=== PATIENT | male | born 1950 | race Caucasian/White ===

== ENCOUNTER → 2016-04-11 | Day surgery (SDC) | payer OTHER, MEDICARE ==
[2016-04-08 11:02] LABS: % IMMATURE GRANULYOCYTES 0.5 % (0.0-1.1); ABSOLUTE IMMATURE GRANULOCYTES 0.03 10^3/uL (0.00-0.10); ADD DIFF? NO; ADD MORPH? NO; ADD SCAN? NO; ATYPICAL LYMPHOCYTE FLAG 10 (0-99); FRAGMENT RBC FLAG 0 (0-99); HEMATOCRIT 43.8 % (40.0-51.0); HEMOGLOBIN 15.2 g/dL (13.7-17.5); LEFT SHIFT FLG 10 (0-99); LIPEMIA HEMOLYSIS FLAG 90 (0-99); MEAN CELL HEMOGLOBIN CONCENTR. 34.7 g/dL (32.4-36.7); MEAN PLATELET VOLUME 9.4 fL (8.7-11.7); PLATELET CLUMPS FLAG 0 (0-99); PLATELET COUNT 283 10^3/uL (150-400); RED BLOOD CELL COUNT 4.61 10^6/uL (4.40-6.38); RED CELL DISTRIBUTION WIDTH 13.2 % (11.5-15.2)
[~2016-04-11] MED LIST: BACITRACIN 50,000 UNITS/10 ML SYR IRR ONE; BUPIVACAINE 0.25% 30 ML SDV ONE; BUPIVACAINE/EPI 0.25% 30 ML SDV ONE; DEXAMETHASONE 10 MG/ML VIAL ONE; DEXMEDETOMIDINE HCL 400 MCG in NS 100 ML IV ONE; LR 1,000 ML IV ONE; THROMBIN (RECOMBINANT) 5,000 UNIT VIAL TP ONE; ceFAZolin 2 GM in D5W 100 ML IV ONE; ceFAZolin 2 GM/DEXTROSE 100 ML IV ONE; fentaNYL 100 MCG/2 ML INJ IT ONE; morphINE PF 1 MG/2 ML AMP IT ONE
--- NOTE | 2016-04-11 15:58 | GOP ---
[f rep st] OPERATIVE REPORT DATE OF OPERATION: 04/11/2016 SURGEON: Familia Parisi MD PREOPERATIVE DIAGNOSIS: POSTOPERATIVE DIAGNOSIS: PROCEDURE PERFORMED: FINDINGS: DESCRIPTION OF PROCEDURE: The patient was supposed to undergo a lumbar decompression and fusion today, but had taken Suboxone l ast night, and the advice of the anesthesiologist and the patient's pain doctor was to hold off for a few days, so the surgery was canceled. We are trying to reschedule him for a few days away. /[id number]/MODL
== END | disposition home or self-care (01) ==
LOC: FSGY 11:16 → F3N 11:16 → UNDOADMIN 11:16 → EDSTATUS 12:45
PROVIDERS: ATTEND Neurological Surgery
DX: M51.36 Other intervertebral disc degeneration, lumbar region (principal); Z53.09 Procedure and treatment not carried out because of other contraindication; Z98.1 Arthrodesis status
CPT/HCPCS: J0690; J2274

== ENCOUNTER 2016-04-15 07:15 | Inpatient (IN) | payer OTHER, MEDICARE ==
[~2016-04-15 07:15] MED LIST changes: +CEFAZOLIN 2 GM/DEXTROSE/100 ML BAG IV ONE; +CHLORHEXIDINE GLUC HIBICLENS 118 ML BTL TP ONE; +DEXAMETHASONE 10 MG/ML VIAL IVP ONE; -DEXAMETHASONE 10 MG/ML VIAL ONE; -DEXMEDETOMIDINE HCL 400 MCG in NS 100 ML IV ONE; +LIDOCAINE 1% 5 ML SDV ID PRN; +LIDOCAINE 1% 5 ML SDV ONE; +PROPOFOL/EMULSION 500 MG/50 ML BOTTLE IV ONE; +REMIFENTANIL HCL 1 MG VIAL ONE; -ceFAZolin 2 GM in D5W 100 ML IV ONE; +fentaNYL 100 MCG/2 ML INJ ONE; +fentaNYL 250 MCG/5 ML INJ ONE; -morphINE PF 1 MG/2 ML AMP IT ONE; +morphINE PF 5 MG/10 ML INJ IT ONE
[2016-04-15] MEDS ORDERED: MIDAZOLAM 2 MG/2 ML VIAL ONE (07:18)
[2016-04-15] MEDS ORDERED: DEXMEDETOMIDINE HCL 200 MCG/2 ML VIAL IV ONE (08:02)
[2016-04-15] MEDS ORDERED: fentaNYL 250 MCG/5 ML INJ ONE ×2 (08:06→09:29)
[2016-04-15] MEDS ORDERED: PHENYLEPHRINE 10 MG/ML SDV ONE (08:26)
[2016-04-15] MEDS ORDERED: fentaNYL 100 MCG/2 ML INJ ONE ×2 (08:56→10:37)
[2016-04-15] MEDS ORDERED: morphINE PF 5 MG/10 ML INJ ONE (08:56)
[2016-04-15] MEDS ORDERED: MAGNESIUM HYDROXIDE 30 ML UDCUP PO PRN (12:04)
[2016-04-15] MEDS ORDERED: LACTULOSE 20 GM/30 ML UDCUP PO PRN (12:04)
[2016-04-15] MEDS ORDERED: BISACODYL 10 MG SUPP PR PRN (12:04)
[2016-04-15] MEDS ORDERED: diphenhydrAMINE 25 MG CAP PO PRN (12:04)
[2016-04-15] MEDS ORDERED: ONDANSETRON DISINTEGRATING 4 MG TAB PO PRN (12:04)
[2016-04-15] MEDS ORDERED: ACETAMINOPHEN 325 MG TAB PO PRN (12:04)
[2016-04-15] MEDS ORDERED: MAG HYDROX/AL HYDROX/SIMETH 30 ML UDCUP PO PRN (12:04)
[2016-04-15] MEDS ORDERED: ONDANSETRON 4 MG/2 ML VIAL IVP PRN (12:04)
[2016-04-15] MEDS ORDERED: NS W/ 20 KCl/L 1,000 ML IV SCH (12:15)
--- NOTE | 2016-04-15 12:19 | GOP ---
[f rep st] OPERATIVE REPORT DATE OF OPERATION: 04/15/2016 SURGEON: Familia Parisi MD CORNER BRACE BLOCK MACHINE OPERATOR: Brandon Kruse PA-C ANESTHESIA: General endotracheal. PREOPERATIVE DIAGNOSIS: 1. Severe adjacent level degeneration, disc space collapse, and neural foraminal impingement at L1-2, status post prior multilevel L2 to S1 decompression and stabilization at an outside institution. 2. Intractable pain. 3. Failed conservative care. 4. High-risk surgical candidate given age, comorbidities, including chronic pain, and complicated medications, and required surgical intervention. POSTOPERATIVE DIAGNOSIS: 1. Severe adjacent level degeneration, disc space collapse, and neural foraminal impingement at L1-2, status post prior multilevel L2 to S1 decompression and stabilization at an outside institution. 2. Intractable pain. 3. Failed conservative care. 4. High-risk surgical candidate given age, comorbidities, including chronic pain, and complicated medications, and required surgical intervention. PROCEDURE PERFORMED: 1. L2 through 4 exploration of spinal fusion with L1-2 left-sided far lateral transpedicular decompression and L1-2 posterior nonsegmental (pedicle screw) fixation and posterolateral fusion with local autograft and bone morphogenic protein. 2. L1-2 posterior/transforaminal lumbar interbody fusion with 2 structural PEEK interbody spacers with local autograft and bone morphogenic protein. 3. Use of intraoperative microscopy, fluoroscopy, and computer volumetric stereotactic navigation with intraoperative neurophysiologic testing. 4. Injection of intrathecal narcotic analgesics and subcutaneous and intramuscular local anesthesia postoperatively. FINDINGS: ESTIMATED BLOOD LOSS: 75 cc. INDICATIONS FOR PROCEDURE: The patient is a 65-year-old man with a complicated past medical and surgical history, involving multiple prior lumbosacral spinal procedures and decompressions and fusions. He has chronic pain and is on complicated medications including Suboxone, which had to be stopped several days prior to surgery due to the opioid receptor inhibiting effect. He has weaned off his Suboxone and presents now for surgical intervention after failing extensive conservative care. DESCRIPTION OF PROCEDURE: After informed consent was obtained, the patient was taken to the operating room, placed in the prone position on the Ambrose table. The thoracolumbar areas were prepped and draped in a sterile fashion. After fluoroscopic localization identified the correct level, the subcutaneous and intramuscular tissues were infiltrated with local anesthesia. A midline linear incision was then created over the L1-2 spinous processes. This was carried down to the fascial layer, which was incised using monopolar electrocautery and carried in a subperiosteal plane along the spinous processes and lamina bilaterally. Intraoperative fluoroscopy was again utilized to verify the correct levels. Following this, dissection was carried out over the facet joints and the microscope was then brought in. A left-sided, far-lateral transpedicular decompression was performed with complete unroofing of the facet joint and neural foramen at L1-2. The lateral recess was also extensively decompressed. Following this, the [employer] neuronavigational system was brought in, and using computer volumetric stereotactic navigation, pedicle screws were placed at L1 and L2 bilaterally. Each individual screw was tested neurophysiologically with monopolar electrostimulation and interpretation of potentials by the surgeon. The rods were then placed and secured under distraction, during which time a complete diskectomy was performed at the L1-2 level with preparation of the endplates and placement of 2 structural PEEK interbody spacers and local autograft and bone morphogenic protein for an L1-2 posterior/transforaminal lumbar interbody fusion. The screw and toma system was then placed in a slight amount of compression in order to facilitate bony union and to minimize the potential for posterior graft migration. Following this, after a discussion with the anesthesiologist, we injected 500 mcg of Duramorph along with 100 mcg of fentanyl intrathecally at a level below the operated level. The retractors were angled inferiorly in order to do this, and the L2-3 and L3-4 levels were inspected as best I could for a solid fusion, and these were noted to be well healed and solid. Following this, along with injection of intrathecal narcotics, the remaining lamina and facet joint were extensively decorticated on the right and a residual local autograft from the facetectomy along with bone morphogenic protein was placed out laterally for a posterolateral fusion at the L1-2 level. A drain was then placed. Then after re-verification of good position of the screws, rods, and interbody spacers using biplanar fluoroscopy, the wound was closed in a layered fashion using interrupted Vicryl sutures, followed by Steri-Strips on the skin, after re -infiltration of the subcutaneous and intramuscular tissues with local anesthesia. COMPLICATIONS: None. DISPOSITION: The patient was extubated and transferred to the recovery room in stable condition. /[id number]/MODL MTDD
[2016-04-15] MEDS ORDERED: LIDOCAINE 2% 5 ML SDV ONE (12:43)
[2016-04-15] MEDS ORDERED: DEXAMETHASONE 4 MG/ML VIAL ONE (12:43)
[2016-04-15] MEDS ORDERED: ONDANSETRON 4 MG/2 ML VIAL ONE (12:43)
[2016-04-15] MEDS ORDERED: SUGAMMADEX SODIUM 200 MG/2 ML VIAL IVP ONE (13:11)
--- NOTE | 2016-04-15 13:12 | POSTOPPROG ---
Post Op Note Date of Operation: 04/15/16 Surgeon: Familia Parisi Janitor Custodian: amaya Anesthesiologist: venancio jones Anesthesia: GET(General Endotracheal) Pre-op Diagnosis: L1/2 DJD/stenosis Post-op Diagnosis: Same Indication: back pain Procedure: L1/2 TLIF Findings: stenosis/DJD Inf/Abcess present in the surg proc area at time of surgery?: No EBL: 50-100 Complications: none Drains: Ambrose Adams (to bulb suction)
[2016-04-15] MEDS ORDERED: METOPROLOL TARTRATE 5 MG/5 ML INJ ONE (13:15)
--- NOTE | 2016-04-15 13:41 | NEUSURGPN ---
Date of Surgery: 04/15/16 Post Op Day: 0 Assessment/Plan: POST OP CHECK: Status post L1/2 TLIF Doing well neuro intact pain well controlled Plan: transfer to ICU per protocol KARLENE to bulb suction Subjective: asleep in PACU, wakes easily States pain is well controlled Objective: NEURO: SHOEMAKER, sens +LT follows commands x 4 PERRLA Vitals: HR: 72 BP: 106/67 O2: 97% Urinary Catheter in Place: No Neurosurgery Physical Exam - Vitals, I&O, Labs I and O 04/14/16 04/15/16 04/16/16 05:59 05:59 05:59 Intake Total 1650 Output Total 110 Balance 1540 Weight 74.843 kg Intake: Oral (ml) 150 IV Intake (ml) 1500 Output: Estimated Blood Loss (ml) 50 Wound Drainage (ml) 60 Back Ambrose Adams 60 Vital Signs Temp Pulse Resp BP Pulse Ox 36.3 C 76 10 L 102/64 96 04/15/16 11:51 04/15/16 11:51 04/15/16 13:16 04/15/16 13:16 04/15/16 13:16 ICD10 Worksheet Patient Problems: Problems Problem Status Diagnosed Lumbar degenerative disc disease Acute - ICD10 Problem Qualifiers (1) Lumbar degenerative disc disease
[2016-04-15] MEDS: POLYETHYLENE GLYCOL 3350 17 GM PKT PO SCH ×2 (14:55→21:53)
[2016-04-15] MEDS: OXYCODONE/APAP 5/325 TAB PO PRN (15:33)
[2016-04-15] MEDS: DEXMEDETOMIDINE HCL 400 MCG in NS 100 ML IV SCH ×2 (15:38→21:54)
--- NOTE | 2016-04-15 18:21 | DX ---
Intraoperative Fluoroscopy of the Thoracolumbar Junction Clinical History: 65-year-old male undergoing L1-L2 TLIF. Comparison Studies: None currently available. Findings: Dr. Familia Parisi used 27.3 seconds of fluoroscopy time (with an exposure dose of 10.8 0 mGy), and intraoperative spot matrix AP and lateral views were acquired at the thoracolumbar juncti on at 10:14-10:15 AM. There are posterior spinal fusion rods secured by transpedicular screws and int erbody radiopaque markers at the L1-L2 level, with subchondral sclerosis seen at the corresponding co rtical endplates, with ventral traction osteophytes. The patient has had prior interbody fusion at L2 -L3 and L3-L4. A surgical drain is in place. Impression: Intraoperative fluoroscopy provided of the upper lumbar spine for localization during art hrodesis.
[2016-04-15] MEDS: morphINE SR 15 MG TAB PO SCH (20:44)
[2016-04-15] MEDS: SENNOSIDES/DOCUSATE SODIUM TAB PO SCH (20:44)
[2016-04-15] MEDS: Imipramine Hcl [Tofranil] 10 MG PO SCH (20:51)
[2016-04-15] MEDS ORDERED: FAMOTIDINE 20 MG/NACL 50 ML IV SCH (21:00)
[2016-04-15] MEDS: DIAZEPAM 10 MG/2 ML SYR IVP PRN (21:59)
[2016-04-16] MEDS: OXYCODONE/APAP 5/325 TAB PO PRN ×2 (03:49→07:04)
[2016-04-16 04:35] LABS: % IMMATURE GRANULYOCYTES 0.8 % (0.0-1.1); ABSOLUTE IMMATURE GRANULOCYTES 0.13 10^3/uL (0.00-0.10); ADD DIFF? NO; ADD MORPH? NO; ADD SCAN? NO; ATYPICAL LYMPHOCYTE FLAG 70 (0-99); FRAGMENT RBC FLAG 0 (0-99); HEMATOCRIT 38.9 % (40.0-51.0); HEMOGLOBIN 13.5 g/dL (13.7-17.5); LEFT SHIFT FLG 20 (0-99); LIPEMIA HEMOLYSIS FLAG 90 (0-99); MEAN CELL HEMOGLOBIN 33.3 pg (27.9-34.1); MEAN CELL HEMOGLOBIN CONCENTR. 34.7 g/dL (32.4-36.7); MEAN CELL VOLUME 95.8 fL (81.5-99.8); MEAN PLATELET VOLUME 9.9 fL (8.7-11.7); PLATELET CLUMPS FLAG 30 (0-99); PLATELET COUNT 274 10^3/uL (150-400); RED BLOOD CELL COUNT 4.06 10^6/uL (4.40-6.38); RED CELL DISTRIBUTION WIDTH 13.1 % (11.5-15.2)
[2016-04-16 04:50] LABS: ANION GAP 11 mEq/L (8-16); CALCIUM 9.6 mg/dL (8.5-10.4); CARBON DIOXIDE 20 mEq/l (22-31); CHLORIDE 109 mEq/L (97-110); CREATININE 0.9 mg/dL (0.7-1.3); GLOMERULAR FILTRATION RATE > 60; GLUCOSE 109 mg/dL (70-100); POTASSIUM 4.5 mEq/L (3.5-5.2); SODIUM 140 mEq/L (134-144)
[2016-04-16] MEDS: DIAZEPAM 10 MG/2 ML SYR IVP PRN (05:08)
[2016-04-16] MEDS: morphINE SR 15 MG TAB PO SCH ×2 (08:45→20:24)
[2016-04-16] MEDS: POLYETHYLENE GLYCOL 3350 17 GM PKT PO SCH ×2 (08:45→20:10)
[2016-04-16] MEDS: ALLOPURINOL 300 MG TAB PO SCH (08:46)
[2016-04-16] MEDS: ATORVASTATIN CALCIUM 40 MG TAB PO SCH (08:46)
[2016-04-16] MEDS: ENOXAPARIN 40 MG/0.4 ML SYR SC SCH (08:46)
[2016-04-16] MEDS: SENNOSIDES/DOCUSATE SODIUM TAB PO SCH ×2 (08:46→20:24)
[2016-04-16] MEDS: FAMOTIDINE 20 MG TAB PO SCH ×2 (08:48→20:25)
[2016-04-16] MEDS: IPRATROPIUM 0.06% NASAL SPRAY EACHNARE SCH (09:28)
[2016-04-16] MEDS: TAMSULOSIN HCL 0.4 MG CAP PO SCH (09:49)
--- NOTE | 2016-04-16 09:58 | NEUSURGPN ---
Date of Surgery: 04/15/16 Post Op Day: 1 Assessment/Plan: Status post L1/2 TLIF Doing well. out of bed in chair pain is 7/10 neuro intact urinary retention requiring straight cath once overnight, then able to void. Plan: Continue ICU today start Flomax KARLENE to bulb suction PT/OT as tolerated Discussed with Dr. Simmons today Dr. Simmons saw pt at 0956 Subjective: in bedside chair, feeling good today but reports 7/10 pain denies numbness tingling or weakness no leg pain required straight cath x 1 overnight, then was able to void Objective: Neuro: SHOEMAKER, sens +LT ambulatory KARLENE: 35ml Urinary Catheter in Place: No - KARLENE Drain Subfascial Wound Drainage (ml): 35 - Physician Discussed Patient with : Ailin Neurosurgery Physical Exam - Vitals, I&O, Labs I and O 04/15/16 04/16/16 04/17/16 05:59 05:59 05:59 Intake Total 2920 Output Total 2380 Balance 540 Weight 74.843 kg Intake: Oral (ml) 1150 IV Intake (ml) 1663 IV Infused (ml) 107 Dexmedetomidine HCl 400 107 mcg In Ns 100 ml @ Per Protocol IV CONT GERI Rx#: [id number] Output: Urine (ml) 2080 Catheter 730 Toilet 1350 Estimated Blood Loss (ml) 50 Wound Drainage (ml) 215 Back Ambrose Adams 215 Wound Drainage (ml) 35 Back Ambrose Adams 35 Vital Signs Temp Pulse Resp BP Pulse Ox 36.7 C 73 16 120/55 L 97 04/16/16 08:00 04/16/16 08:00 04/16/16 08:00 04/16/16 08:00 04/16/16 08:00 Laboratory Results 04/16/16 04:00 04/16/16 04:00 ICD10 Worksheet Patient Problems: Problems Problem Status Diagnosed Lumbar degenerative disc disease Acute - ICD10 Problem Qualifiers (1) Lumbar degenerative disc disease
[2016-04-16] MEDS: HYDROmorphONE/DILAUDID 1 MG/ML SYR IVP PRN ×3 (16:58→21:56)
[2016-04-16] MEDS: Imipramine Hcl [Tofranil] 10 MG PO SCH (20:13)
[2016-04-16] MEDS: DIAZEPAM 5 MG TAB PO PRN (21:56)
[2016-04-17] MEDS: HYDROmorphONE/DILAUDID 1 MG/ML SYR IVP PRN ×12 (00:17→22:57)
[2016-04-17] MEDS: POLYETHYLENE GLYCOL 3350 17 GM PKT PO SCH ×4 (00:21→21:47)
[2016-04-17] MEDS: DIAZEPAM 5 MG TAB PO PRN ×2 (02:48→21:26)
[2016-04-17] MEDS: OXYCODONE/APAP 5/325 TAB PO PRN ×2 (05:41→21:26)
[2016-04-17] MEDS: ATORVASTATIN CALCIUM 40 MG TAB PO SCH (08:36)
[2016-04-17] MEDS: morphINE SR 15 MG TAB PO SCH (08:36)
[2016-04-17] MEDS: FAMOTIDINE 20 MG TAB PO SCH ×2 (08:36→19:56)
[2016-04-17] MEDS: TAMSULOSIN HCL 0.4 MG CAP PO SCH (08:36)
[2016-04-17] MEDS: ENOXAPARIN 40 MG/0.4 ML SYR SC SCH (08:36)
[2016-04-17] MEDS: ALLOPURINOL 300 MG TAB PO SCH (08:36)
[2016-04-17] MEDS: SENNOSIDES/DOCUSATE SODIUM TAB PO SCH ×2 (08:36→19:52)
[2016-04-17] MEDS: HYDROCODONE/APAP 10/325 TAB PO PRN ×2 (09:48→16:07)
[2016-04-17] MEDS: IPRATROPIUM 0.06% NASAL SPRAY EACHNARE SCH (09:51)
--- NOTE | 2016-04-17 12:28 | NEUSURGPN ---
Date of Surgery: 04/15/16 Post Op Day: 2 Assessment/Plan: Status post L1/2 TLIF Doing well. He reports ongoing severe back pain, but is lying in bed and appears comfortable neuro intact urinating without issue now Plan: Continue ICU today continue Flomax KARLENE to bulb suction PT/OT as tolerated Discussed with Dr. Munoz Subjective: in bed, appears comfortable but reports severe pain. states he is urinating fine , no new leg pain weakness or tingling Objective: NEURO: A+OX4 SHOEMAKER, sens +LT KARLENE: 35ml Urinary Catheter in Place: No - Physician Discussed Patient with Dr.: Other (everton) Neurosurgery Physical Exam - Vitals, I&O, Labs I and O 04/16/16 04/17/16 04/18/16 05:59 05:59 05:59 Intake Total 2920 1270 Output Total 2380 2155 500 Balance 540 -885 -500 Intake: Oral (ml) 1150 1270 IV Intake (ml) 1663 IV Infused (ml) 107 Dexmedetomidine HCl 400 107 mcg In Ns 100 ml @ Per Protocol IV CONT GERI Rx#: [id number] Output: Urine (ml) 2080 2050 500 Catheter 730 Toilet 1350 2050 500 Estimated Blood Loss (ml) 50 Wound Drainage (ml) 215 105 Subfascial 35 Back Ambrose Adams 215 70 Wound Drainage (ml) 35 Back Ambrose Adams 35 Other: Number of Voids Toilet 1 1 Vital Signs Temp Pulse Resp BP Pulse Ox 36.7 C 94 12 103/66 93 04/17/16 08:00 04/17/16 12:00 04/17/16 12:00 04/17/16 12:00 04/17/16 12:00 Laboratory Results 04/16/16 04:00 04/16/16 04:00 ICD10 Worksheet Patient Problems: Problems Problem Status Diagnosed Lumbar degenerative disc disease Acute - ICD10 Problem Qualifiers (1) Lumbar degenerative disc disease
[2016-04-17] MEDS: METHOCARBAMOL 750 MG TAB PO PRN ×2 (14:04→22:58)
--- NOTE | 2016-04-17 15:59 | DX ---
Lumbar spine,2 views 04/17/2016 History: Postop lumbar spine surgery Comparison examination:None available Findings: Bilateral pedicle screws are present at L1 and L2 with posterior toma fixation and intervert ebral graft material, anatomic alignment. Prior interbody fusion at L2-L3, L3-L4, L4-L5, anatomic alignment. Impression: 1. Status post instrumentation fusion at L1-L2 without hardware complication. 2. Prior fusion of L2-L5, anatomic alignment.
[2016-04-17] MEDS: morphINE SR 30 MG TAB PO SCH (19:53)
[2016-04-17] MEDS: Imipramine Hcl [Tofranil] 10 MG PO SCH (19:56)
[2016-04-18] MEDS: HYDROmorphONE/DILAUDID 1 MG/ML SYR IVP PRN ×3 (00:50→07:58)
[2016-04-18] MEDS: DIAZEPAM 5 MG TAB PO PRN ×3 (04:27→18:20)
[2016-04-18] MEDS: OXYCODONE/APAP 5/325 TAB PO PRN (04:27)
[2016-04-18] MEDS: HYDROCODONE/APAP 10/325 TAB PO PRN ×3 (07:58→18:20)
[2016-04-18] MEDS: ATORVASTATIN CALCIUM 40 MG TAB PO SCH (08:32)
[2016-04-18] MEDS: TAMSULOSIN HCL 0.4 MG CAP PO SCH (08:32)
[2016-04-18] MEDS: morphINE SR 30 MG TAB PO SCH ×2 (08:32→20:31)
[2016-04-18] MEDS: POLYETHYLENE GLYCOL 3350 17 GM PKT PO SCH ×3 (08:32→20:30)
[2016-04-18] MEDS: SENNOSIDES/DOCUSATE SODIUM TAB PO SCH ×2 (08:32→20:31)
[2016-04-18] MEDS: ENOXAPARIN 40 MG/0.4 ML SYR SC SCH (08:32)
[2016-04-18] MEDS: ALLOPURINOL 300 MG TAB PO SCH (08:32)
[2016-04-18] MEDS: FAMOTIDINE 20 MG TAB PO SCH ×3 (08:33→20:35)
--- NOTE | 2016-04-18 11:28 | NEUSURGPN ---
Assessment/Plan: Status post L1/2 TLIF Doing well. He continues to report 10/10 pain but appears comfortable and walking around the halls this morning. neuro intact Plan: Ok to transfer to floor today continue Flomax X-rays show good hardware placement KARLENE to bulb suction- output 35 mL in last 24, may pull later today PT/OT as tolerated DVT: TEDs, SCDs, Lovenox IV --> PO meds Has pain management doctor but she wants neurosurg to manage pain for first 2 weeks after surgery Discussed with Dr. Simmons. Subjective: Patient states he is in 10/10 pain but did walk around the hallway this morning without issue. Has no leg pain, denies fever, chills. Objective: NAD, VSS. AFebrile BUE/BLE 5/5= Sensation intact to lt touch Incision c/d/i KARLENE X1- output 35 serosang - Physician Discussed Patient with : Ailin Neurosurgery Physical Exam - Vitals, I&O, Labs I and O 04/17/16 04/18/16 04/19/16 05:59 05:59 05:59 Intake Total 1270 1300 Output Total 2155 2590 Balance -885 -1290 Intake: Oral (ml) 1270 1300 Output: Urine (ml) 2050 2500 Toilet 2050 2500 Wound Drainage (ml) 105 90 Subfascial 35 Back Ambrose Adams 70 90 Other: Number of Voids Toilet 1 1 Vital Signs Temp Pulse Resp BP Pulse Ox 36.6 C 82 14 109/68 92 04/18/16 04:00 04/18/16 06:00 04/18/16 06:00 04/18/16 06:00 04/18/16 06:00 Laboratory Results 04/16/16 04:00 04/16/16 04:00 ICD10 Worksheet Patient Problems: Problems Problem Status Diagnosed Lumbar degenerative disc disease Acute
[2016-04-18] MEDS: IPRATROPIUM 0.06% NASAL SPRAY EACHNARE SCH (13:05)
[2016-04-18] MEDS: METHOCARBAMOL 750 MG TAB PO PRN (20:30)
[2016-04-18] MEDS: Imipramine Hcl [Tofranil] 10 MG PO SCH (21:25)
[2016-04-19] MEDS: HYDROCODONE/APAP 10/325 TAB PO PRN ×3 (00:02→18:01)
[2016-04-19] MEDS: DIAZEPAM 5 MG TAB PO PRN ×3 (00:02→18:01)
[2016-04-19] MEDS: ATORVASTATIN CALCIUM 40 MG TAB PO SCH (08:02)
[2016-04-19] MEDS: FAMOTIDINE 20 MG TAB PO SCH ×2 (08:02→19:40)
[2016-04-19] MEDS: TAMSULOSIN HCL 0.4 MG CAP PO SCH (08:02)
[2016-04-19] MEDS: SENNOSIDES/DOCUSATE SODIUM TAB PO SCH ×3 (08:02→23:25)
[2016-04-19] MEDS: ALLOPURINOL 300 MG TAB PO SCH (08:02)
[2016-04-19] MEDS: morphINE SR 30 MG TAB PO SCH ×2 (08:02→19:40)
[2016-04-19] MEDS: POLYETHYLENE GLYCOL 3350 17 GM PKT PO SCH ×4 (08:02→23:25)
[2016-04-19] MEDS: ENOXAPARIN 40 MG/0.4 ML SYR SC SCH (08:02)
[2016-04-19] MEDS: IPRATROPIUM 0.06% NASAL SPRAY EACHNARE SCH (08:04)
--- NOTE | 2016-04-19 18:38 | NEUSURGPN ---
Date of Surgery: 04/15/16 Post Op Day: 5 Assessment/Plan: Assessment/Plan Status post L1/2 TLIF Doing well. He reports ongoing severe back pain, but is lying in bed and appears comfortable neuro intact urinating without issue now Plan: Continue ICU today continue Flomax KARLENE to bulb suction PT/OT as tolerated Discussed with Dr. Munoz Subjective: lying in bed, overall comfortable, no overnight issues. Objective: NEuro: SHOEMAKER, sens +LT ambulatory, urinating. Urinary Catheter in Place: No - Physician Discussed Patient with DrMal: Ailin Neurosurgery Physical Exam - Vitals, I&O, Labs I and O 04/18/16 04/19/16 04/20/16 05:59 05:59 05:59 Intake Total 1300 1150 1000 Output Total 2590 800 Balance -1290 1150 200 Intake: Oral (ml) 1300 1150 1000 Output: Urine (ml) 2500 800 Toilet 2500 800 Wound Drainage (ml) 90 Back Ambrose Adams 90 Other: Intake Quantity Yes Sufficient Number of Voids Toilet 1 4 Vital Signs Temp Pulse Resp BP Pulse Ox 37.2 C 98 16 96/71 L 95 04/19/16 15:30 04/19/16 15:30 04/19/16 15:30 04/19/16 15:30 04/19/16 15:30 Laboratory Results 04/16/16 04:00 04/16/16 04:00 ICD10 Worksheet Patient Problems: Problems Problem Status Onset Lumbar degenerative disc disease Acute - ICD10 Problem Qualifiers (1) Lumbar degenerative disc disease
[2016-04-19] MEDS: IMIPRAMINE HCL 25 MG TAB PO SCH (22:32)
[2016-04-20] MEDS: HYDROCODONE/APAP 10/325 TAB PO PRN ×4 (00:07→18:58)
[2016-04-20] MEDS: DIAZEPAM 5 MG TAB PO PRN ×4 (00:07→21:21)
[2016-04-20] MEDS: ATORVASTATIN CALCIUM 40 MG TAB PO SCH (09:37)
[2016-04-20] MEDS: morphINE SR 30 MG TAB PO SCH ×2 (09:37→21:16)
[2016-04-20] MEDS: FAMOTIDINE 20 MG TAB PO SCH ×2 (09:38→21:17)
[2016-04-20] MEDS: TAMSULOSIN HCL 0.4 MG CAP PO SCH (09:38)
[2016-04-20] MEDS: ALLOPURINOL 300 MG TAB PO SCH (09:38)
[2016-04-20] MEDS: POLYETHYLENE GLYCOL 3350 17 GM PKT PO SCH ×3 (09:38→21:19)
[2016-04-20] MEDS: SENNOSIDES/DOCUSATE SODIUM TAB PO SCH ×2 (09:38→21:18)
[2016-04-20] MEDS: ENOXAPARIN 40 MG/0.4 ML SYR SC SCH (09:44)
--- NOTE | 2016-04-20 10:33 | GPROG ---
[f rep st] PROGRESS NOTE NEUROSURGICAL PROGRESS NOTE DATE OF SERVICE: 04/20/2016 SUBJECTIVE: The patient is in a bedside chair this morning. He states that he is doing better overall but still complains of 6 or 7/10 low back pain. He denies any new numbness, tingling, or weakness. He is tolerating his lumbar brace well on ambulating and urinating without difficulty. OBJECTIVE: VITAL SIGNS: Blood pressure is 105/73, heart rate is 99, temperature is 36.9, oxygen saturation is 93% on room air. NEUROLOGIC: Patient is awake, alert, oriented x4. He has equal and symmetric strength of the bilateral upper and lower extremities in all muscle groups with normal sensation in all dermatomal distributions of the bilateral upper and lower extremities. His dressing is clean, dry, and intact. The dressing was removed today and the wound was left open to air with Steri-Strips in place. There is no evidence of redness or drainage. AP and lateral x-rays of the lumbar spine performed on 04/17/2016 demonstrate stable-appearing hardware at L1-2. IMPRESSION: This is a 65-year-old male, who is status post L1-2 transforaminal lumbar interbody fusion. He is doing well overall with continued steady improvement during his hospitalization. He remains neurologically stable. PLAN: All of the above issues were discussed with the patient in detail today, and at this time, if the patient continues to do well and is cleared by Physical Therapy, Occupational Therapy, he will discharge home later today, otherwise tomorrow. /[id number]/MODL MTDD
[2016-04-20] MEDS: IPRATROPIUM 0.06% NASAL SPRAY EACHNARE SCH (12:05)
[2016-04-20] MEDS: METHOCARBAMOL 750 MG TAB PO PRN ×2 (15:16→23:42)
[2016-04-20] MEDS: IMIPRAMINE HCL 25 MG TAB PO SCH (21:18)
[2016-04-20 23:25] VITALS: PULSE 93; TEMP 98
[2016-04-21] MEDS: HYDROCODONE/APAP 10/325 TAB PO PRN ×2 (02:45→08:45)
[2016-04-21] MEDS: METHOCARBAMOL 750 MG TAB PO PRN (05:26)
[2016-04-21 07:51] VITALS: BP 121/70; RESP 14; O2SAT 92
--- NOTE | 2016-04-21 08:11 | SOAPPROG ---
[facility] Progress Note Assessment/Plan: Assessment: 65 yo M sp L1/2 TLIF Plan: stable PT/OT dc home today please call with neuro changes discussed with DR Simmons 04/21/16 08:10 Subjective: continued back pain, no leg pain, no weakness. Objective: Vital Signs Temp Pulse Resp BP Pulse Ox 36.7 C 93 14 121/70 H 92 04/21/16 07:51 04/21/16 07:51 04/21/16 07:51 04/21/16 07:51 04/21/16 07:51 Laboratory Results 04/16/16 04:00 04/16/16 04:00 04/20/16 04/21/16 04/22/16 05:59 05:59 05:59 Intake Total 1350 1650 Output Total 800 Balance 550 1650 AAOX4, +FC PERRL, EOMI, no facial droop 5/5 + light touch C/D/I ICD10 Worksheet Patient Problems: Problems Problem Status Onset Lumbar degenerative disc disease Acute
[2016-04-21] MEDS: POLYETHYLENE GLYCOL 3350 17 GM PKT PO SCH (08:33)
[2016-04-21] MEDS: ATORVASTATIN CALCIUM 40 MG TAB PO SCH (08:33)
[2016-04-21] MEDS: morphINE SR 30 MG TAB PO SCH (08:34)
[2016-04-21] MEDS: SENNOSIDES/DOCUSATE SODIUM TAB PO SCH (08:34)
[2016-04-21] MEDS: ALLOPURINOL 300 MG TAB PO SCH (08:35)
[2016-04-21] MEDS: TAMSULOSIN HCL 0.4 MG CAP PO SCH (08:35)
[2016-04-21] MEDS: ENOXAPARIN 40 MG/0.4 ML SYR SC SCH (08:36)
[2016-04-21] MEDS: FAMOTIDINE 20 MG TAB PO SCH (08:36)
[2016-04-21] MEDS: IPRATROPIUM 0.06% NASAL SPRAY EACHNARE SCH (09:27)
--- NOTE | 2016-04-21 12:40 | PDIAF ---
- Diagnosis Code Status: Full Code - Medication Management Discharge Medications: Medications to Continue on Transfer Allopurinol [Allopurinol 300 MG (RX)] 300 mg PO DAILY 04/05/16 [Last Taken 04/14] Atorvastatin Calcium [Lipitor 40 mg (*)] 40 mg PO DAILY 04/05/16 [Last Taken 11/20] Diazepam [Valium 2 MG (*)] 2 - 4 mg PO HS PRN 04/05/16 [Last Taken 04/14/16] Imipramine HCl [Tofranil] 10 mg PO HS 04/05/16 [Last Taken 04/13/16] Ipratropium 0.06% Nasal [Atrovent 0.06% Nasal] 2 sprays EACHNARE DAILY 04/05/16 [Last Taken 04/15/16] Methocarbamol [Robaxin 750 mg (*)] 750 mg PO QID PRN #60 tab 04/20/16 [Last Taken Unknown] Polyethylene Glycol 3350 [Miralax 17 gm (*)] 17 gm PO TID #0 pkt 04/20/16 [Last Taken Unknown] morphINE SR [MS Contin/Oramorph SR 30 mg (*)] 30 mg PO BID #60 tab 04/20/16 [ Last Taken Unknown] Discharge Medications: Refer to the Discharge Home Medication list for PRN reason. - Orders Services needed: Home Care, Physical Therapy, Occupational Therapy Home Care Face to Face: I certify that this patient was under my care and that I had the required [id number] encounter meeting the encounter requirements on the discharge day. My findings support the fact that the patient is homebound as defined in CMS Chapter 7 Medicare Benefits Manual 30.1.1, The condition of the patient is such that there exists a normal inability to leave home and consequently, leaving home would require a considerable and taxing effort. Diet Recommendation: no restrictions on diet Diet Texture: Regular Texture Diet Additional: home care with PT/OT to evaluate for home safety - Follow Up Care Current Providers and Referrals: [place],. [Primary Care Provider] - Familia Parisi MD [Medical Doctor] - 04/28/16 1:40 pm
== END 2016-04-21 12:15 | disposition home or self-care (01) | DRG 460 ==
LOC: F2N 13:49 → F3N 04-19 20:54
PROVIDERS: ADMIT Neurological Surgery; ATTEND Neurological Surgery
PROC: 0SG00A0 Fusion of Lumbar Vertebral Joint with Interbody Fusion Device, Anterior Approach, Anterior Column, Open Approach (ICD-10-PCS; principal; 2016-04-15 07:15)
PROC: 01NB0ZZ Release Lumbar Nerve, Open Approach (ICD-10-PCS; principal; 2016-04-15 07:15)
PROC: 3E0U0GB Introduction of Recombinant Bone Morphogenetic Protein into Joints, Open Approach (ICD-10-PCS; principal; 2016-04-15 07:15)
DX: M51.36 Other intervertebral disc degeneration, lumbar region (principal); R33.9 Retention of urine, unspecified; G89.29 Other chronic pain; Z98.1 Arthrodesis status
CPT/HCPCS: 97116-GP; 97161-GP; 97165-GO; 97530-GO; 97530-GP; 97535-GO; C1713; G8978-GP-CI; G8979-GP-CI; G8980-GP-CI; G8987-GO-CI; G8988-GO-CI; G8989-GO-CI; J0690; J1100; J1170; J1650; J2250; J2274; J2370; J2405; J2704; J3010

== ENCOUNTER → 2016-07-25 | Outpatient (CLI) | payer OTHER, MEDICARE | LOC: FIMAGING 11:55 | PROVIDERS: ATTEND Physician Assistant Surgical | DX: Z47.89 Encounter for other orthopedic aftercare (principal); Z98.1 Arthrodesis status ==

== ENCOUNTER 2016-08-17 20:52 | Emergency (ER) | payer OTHER, MEDICARE ==
[2016-08-17 21:18] VITALS: BP 127/83; PULSE 85; RESP 16; TEMP 98.6; O2SAT 96
[2016-08-17 22:11] LABS: COLOR COLORLESS; LEUKOCYTE ESTERASE,URINE NEGATIVE (NEGATIVE); NITRITE,URINE NEGATIVE (NEGATIVE)
--- NOTE | 2016-08-17 22:15 | EDPHY ---
H & P Stated Complaint: opioid w/drawl Time Seen by Provider: 08/17/16 22:02 HPI/ROS: HPI The patient presents with urinary frequency for the last 1 week, though worse over the last 3 days. He finds that in the afternoon he is voiding quite frequently up to every 5-10 minutes. This is not painful, the urine appears clear. He is currently going through an opioid withdrawal program monitored by his doctor. He is on medication for this. Previously, while on Suboxone, he had urinary frequency. He denies any nocturia. He denies any polyphagia. He is trying to stay hydrated to avoid any significant dehydration. He also reports dizziness which feels as if he has the flu. REVIEW OF SYSTEMS Constitutional: No fever, no chills. Eyes: No discharge. ENT: No sore throat. Cardiovascular: No chest pain, no palpitations. Respiratory: No cough, no shortness of breath. Gastrointestinal: No abdominal pain, no vomiting. Genitourinary: No hematuria. Musculoskeletal: No back pain. Skin: No rashes. Neurological: No headache. PMHx: Currently none opioid withdrawal program, status post spinal fusion in March of 2016 Soc Hx: Housed, 41-year-old daughter 1 year ago from dehydration he says PHYSICAL General Appearance: Alert, no distress Eyes: Pupils equal and round no pallor or injection ENT, Mouth: Mucous membranes moist Respiratory: There are no retractions, lungs are clear to auscultation Cardiovascular: Regular rate and rhythm Gastrointestinal: Abdomen is soft and non-tender, no masses, bowel sounds normal Neurological: A&O, moves all extremities Skin: Warm and dry, no rashes Musculoskeletal: Neck is supple non tender Extremities: symmetrical, full range of motion Psychiatric: Patient is oriented X 3, there is no agitation Source: Patient Exam Limitations: No limitations - Personal History Current Tetanus/Diphtheria Vaccine: Yes Current Tetanus Diphtheria and Acellular Pertussis (TDAP): Yes - Medical/Surgical History Hx Asthma: No Hx Chronic Respiratory Disease: No Hx Diabetes: No Hx Cardiac Disease: No Hx Renal Disease: No Hx Cirrhosis: No Hx Alcoholism: No Hx HIV/AIDS: No Hx Splenectomy or Spleen Trauma: No Other PMH: L2L5 fusion, ablation for PVCs, chronic pain, migraines - Social History Smoking Status: Never smoked Constitutional: Initial Vital Signs Temperature (C) 37 C 08/17/16 21:07 Heart Rate 85 08/17/16 21:07 Respiratory Rate 16 08/17/16 21:07 Blood Pressure 127/83 H 08/17/16 21:07 O2 Sat (%) 96 08/17/16 21:07 O2 Delivery Mode Room Air Allergies/Adverse Reactions: Penicillins Allergy (Verified 08/17/16 21:05) Rash Home Medications: Medication Instructions Recorded Allopurinol [Allopurinol 300 MG 300 mg PO DAILY 04/05/16 (RX)] Atorvastatin Calcium [Lipitor 40 40 mg PO DAILY 04/05/16 mg (*)] Ipratropium 0.06% Nasal [Atrovent 2 sprays EACHNARE DAILY 04/05/16 0.06% Nasal] Polyethylene Glycol 3350 [Miralax 17 gm PO TID #0 pkt 04/20/16 17 gm (*)] Belbuca 08/17/16 [place] Carbonate 08/17/16 Medical Decision Making Differential Diagnosis: This is a 66-year-old male, currently in opioid withdrawal program, who presents with several days of progressive polyuria. He is concerned about dehydration. Differential diagnosis includes urinary tract infection, new onset diabetes, medication side effect. In the emergency room, labs were checked including chemistry panel and UA, these were unremarkable. I feel his symptoms could be an unusual medication side -effect. He is happy to go home and would like to be discharged. He has follow -up with his doctor. - Data Points Laboratory Results: Laboratory Results 08/17/16 21:30 08/17/16 21:30 08/17/16 08/17/16 08/17/16 21:30 21:30 21:00 WBC 9.91 10^3/uL H 10^3/uL (3.80-9.50) RBC 4.52 10^6/uL 10^6/uL (4.40-6.38) Hgb 15.0 g/dL g/dL (13.7-17.5) Hct 43.2 % % (40.0-51.0) MCV 95.6 fL fL (81.5-99.8) MCH 33.2 pg pg (27.9-34.1) MCHC 34.7 g/dL g/dL (32.4-36.7) RDW 13.4 % % (11.5-15.2) Plt Count 318 10^3/uL 10^3/uL (150-400) MPV 9.6 fL fL (8.7-11.7) Neut % (Auto) 65.7 % % (39.3-74.2) Lymph % (Auto) 20.7 % % (15.0-45.0) [place] % (Auto) 11.3 % % (4.5-13.0) Eos % (Auto) 1.0 % % (0.6-7.6) Baso % (Auto) 0.6 % % (0.3-1.7) Nucleat RBC Rel Count 0.0 % % (0.0-0.2) Absolute Neuts (auto) 6.51 10^3/uL H 10^3/uL (1.70-6.50) Absolute Lymphs (auto) 2.05 10^3/uL 10^3/uL (1.00-3.00) Absolute Monos (auto) 1.12 10^3/uL H 10^3/uL (0.30-0.80) Absolute Eos (auto) 0.10 10^3/uL 10^3/uL (0.03-0.40) Absolute Basos (auto) 0.06 10^3/uL 10^3/uL (0.02-0.10) Absolute Nucleated RBC 0.00 10^3/uL 10^3/uL (0-0.01) Immature Gran % 0.7 % % (0.0-1.1) Immature Gran # 0.07 10^3/uL 10^3/uL (0.00-0.10) Sodium 138 mEq/L mEq/L (134-144) Potassium 4.1 mEq/L mEq/L (3.5-5.2) Chloride 106 mEq/L mEq/L (97-110) Carbon Dioxide 21 mEq/l L mEq/l (22-31) Anion Gap 11 mEq/L mEq/L (8-16) BUN 15 mg/dL mg/dL (7-23) Creatinine 1.0 mg/dL mg/dL (0.7-1.3) Estimated GFR > 60 Glucose 91 mg/dL mg/dL (70-100) Calcium 9.7 mg/dL mg/dL (8.5-10.4) Total Bilirubin 0.5 mg/dL mg/dL (0.1-1.4) AST 24 IU/L IU/L (17-59) ALT 39 IU/L IU/L (21-72) Alkaline Phosphatase 116 IU/L IU/L (38-126) Total Protein 7.4 g/dL g/dL (6.3-8.2) Albumin 4.2 g/dL g/dL (3.5-5.0) Urine Color COLORLESS Urine Appearance CLEAR Urine pH 7.0 (5.0-7.5) Ur Specific [place] 1.002 (1.002-1.030) Urine Protein NEGATIVE (NEGATIVE) Urine Ketones NEGATIVE (NEGATIVE) Urine Blood NEGATIVE (NEGATIVE) Urine Nitrate NEGATIVE (NEGATIVE) Urine Bilirubin NEGATIVE (NEGATIVE) Urine Urobilinogen NEGATIVE EU EU (0.2-1.0) Ur Leukocyte Esterase NEGATIVE (NEGATIVE) Urine RBC 1-3 /hpf /hpf (0-3) Urine WBC NONE SEEN /hpf /hpf (0-3) Ur Epithelial Cells NONE SEEN /lpf /lpf (NONE-1+) Urine Glucose NEGATIVE (NEGATIVE) Departure - Departure Disposition: Home, Routine, Self-Care Clinical Impression: Opiate withdrawal, Polyuria Condition: Good Instructions: Polyuria (ED) Referrals: Paula Francois MD [Primary Care Provider] - As per Instructions
[2016-08-17 22:19] LABS: % IMMATURE GRANULYOCYTES 0.7 % (0.0-1.1); ABSOLUTE IMMATURE GRANULOCYTES 0.07 10^3/uL (0.00-0.10); ADD DIFF? NO; ADD MORPH? NO; ADD SCAN? NO; ATYPICAL LYMPHOCYTE FLAG 10 (0-99); FRAGMENT RBC FLAG 0 (0-99); HEMATOCRIT 43.2 % (40.0-51.0); LEFT SHIFT FLG 10 (0-99); LIPEMIA HEMOLYSIS FLAG 90 (0-99); MEAN CELL HEMOGLOBIN 33.2 pg (27.9-34.1); MEAN CELL HEMOGLOBIN CONCENTR. 34.7 g/dL (32.4-36.7); MEAN CELL VOLUME 95.6 fL (81.5-99.8); MEAN PLATELET VOLUME 9.6 fL (8.7-11.7); PLATELET CLUMPS FLAG 20 (0-99); PLATELET COUNT 318 10^3/uL (150-400); RED BLOOD CELL COUNT 4.52 10^6/uL (4.40-6.38); RED CELL DISTRIBUTION WIDTH 13.4 % (11.5-15.2)
[2016-08-17 22:23] LABS: ALANINE AMINOTRANSFERASE 39 IU/L (21-72); ALBUMIN 4.2 g/dL (3.5-5.0); ALKALINE PHOSPHATASE 116 IU/L (38-126); ANION GAP 11 mEq/L (8-16); ASPARTATE AMINOTRANSFERASE 24 IU/L (17-59); BILIRUBIN,TOTAL 0.5 mg/dL (0.1-1.4); CALCIUM 9.7 mg/dL (8.5-10.4); CARBON DIOXIDE 21 mEq/l (22-31); CHLORIDE 106 mEq/L (97-110); GLOMERULAR FILTRATION RATE > 60; GLUCOSE 91 mg/dL (70-100); POTASSIUM 4.1 mEq/L (3.5-5.2); SODIUM 138 mEq/L (134-144); TOTAL PROTEIN 7.4 g/dL (6.3-8.2)
[2016-08-17 22:31] LABS: WBC,URINE NONE SEEN /hpf (0-3)
== END 2016-08-17 23:17 | disposition home or self-care (01) ==
DX: R35.8 Other polyuria (principal); F11.23 Opioid dependence with withdrawal

== ENCOUNTER 2016-09-02 11:55 | Inpatient (IN) | payer OTHER, MEDICARE ==
--- NOTE | 2016-09-02 12:53 | EDPHY ---
H & P Stated Complaint: Problems with opiate w/drawal;feeling very tired,lots of complaints Time Seen by Provider: 09/02/16 12:46 HPI/ROS: HPI CHIEF COMPLAINT: Dizziness, generalized weakness HISTORY OF PRESENT ILLNESS: This patient very pleasant 66-year-old male, presents emergency room by private vehicle with his at bedside who complains of dizziness or feeling room spinning, also feels generalized weakness and he cannot get out of bed. States has been going on for multiple days. He denies chest pain. He does endorse headache. He endorses chronic back pain. He states that he has chronic back pain used to be on chronic pain medicine. He has been off them for close to 18 days. He thinks he is going through withdrawal. However he tells me he has been bed-bound and sleeping for 20 hours a day for the past week. Unable to get up. Due to dizziness and generalized weakness. He denies fever. Denies shortness of breath chest pain or abdominal pain or vomiting. He does have nausea. Was recently placed on lithium by his psychiatrist due to depression and thoughts of suicide. No suicidal ideation at this time or plan. He does tell me that he saw his primary care doctor yesterday was started on meclizine however this is not helped with his dizziness. Past Medical History: Chronic back pain from lumbar fusion, chronic pain syndrome. Past Surgical History: Lumbar fusion Social History: Denies daily use of drugs alcohol tobacco products Family History: Noncontributory ROS REVIEW OF SYSTEMS: A comprehensive 10 point review of systems is otherwise negative aside from elements mentioned in the history of present illness. Exam Constitutional appears frail, triage nursing summary reviewed, vital signs reviewed, awake/alert. Eyes normal conjunctivae and sclera, EOMI, PERRLA. HENT normal inspection, atraumatic, moist mucus membranes, no epistaxis, neck supple/ no meningismus, no raccoon eyes. Respiratory clear to auscultation bilaterally, normal breath sounds, no respiratory distress, no wheezing. Cardiovascular rate normal, regular rhythm, no murmur, no edema, distal pulses normal. Gastrointestinal soft, non-tender, no rebound, no guarding, normal bowel sounds, no distension, no pulsatile mass. Genitourinary no CVA tenderness. Musculoskeletal no midline vertebral tenderness, full range of motion, no calf swelling, no tenderness of extremities, no meningismus, good pulses, neurovascularly intact. Skin pink, warm, & dry, no rash, skin atraumatic. Neurologic awake, alert and oriented x 3, AAOx3, moves all 4 extremities equally, motor intact, sensory intact, CN II-XII intact, normal cerebellar, normal vision, normal speech. Psychiatric frustrated Heme/Lymph/Immune no lymphadenopathy. Differential Diagnosis: Includes but is not limited to in a particular order: Vertigo, acute stroke, [place], electrolyte disturbance Medical Decision Making: Plan for this patient right large workup for generalized weakness and dizziness, he will need EKG, troponin, blood work, electrolytes, CT head without contrast IV fluid bolus, check urinalysis. Re-evaluation: EKG interpretation by me on record in [employer] system. Impression time of EKG 1328, sinus rhythm rate of 84, no acute ischemic changes specifically no ST elevation ST depression T-wave abnormalities. Normal intervals. CT scan of the head without IV contrast The results of the study are negative for acute abnormality. The study was read by Dr. Cody. I viewed the images myself on the PACS system. CT scan of the angiogram neck and head. The results of the study are negative for acute dissection aneurysm or stroke. The study was read by Dr. Reynolds I viewed the images myself on the PACS system. 1422: This patient's workup in the emergency room is unrevealing. He had a negative CT head, CT angiogram head and neck for dizziness. His blood work is appropriate. His EKG is nonischemic. Electrolytes are appropriate. I do not have a great explanation for his generalized weakness, failure to thrive picture , and dizziness. No evidence that he is having acute coronary syndrome or stroke. Due to this patient's deconditioning, failure to thrive, generalized weakness, debilitating dizziness I will admitted to the hospital for further evaluation. ED x-ray chest two view: Negative for acute cardiopulmonary disease. Source: Patient - Personal History Current Tetanus Diphtheria and Acellular Pertussis (TDAP): Yes - Medical/Surgical History Hx Asthma: No Hx Chronic Respiratory Disease: No Hx Diabetes: No Hx Cardiac Disease: No Hx Renal Disease: No Hx Cirrhosis: No Hx Alcoholism: No Hx HIV/AIDS: No Hx Splenectomy or Spleen Trauma: No Other PMH: L2L5 fusion, ablation for PVCs, chronic pain, migraines - Social History Smoking Status: Never smoked Constitutional: Initial Vital Signs Temperature (C) 36.7 C 09/02/16 12:00 Heart Rate 93 09/02/16 12:00 Respiratory Rate 18 09/02/16 12:00 Blood Pressure 116/81 H 09/02/16 12:00 O2 Sat (%) 97 09/02/16 12:00 O2 Delivery Mode Room Air Allergies/Adverse Reactions: Penicillins Allergy (Verified 09/02/16 12:04) Rash Home Medications: Medication Instructions Recorded Allopurinol [Allopurinol 300 MG 300 mg PO DAILY 04/05/16 (RX)] Atorvastatin Calcium [Lipitor 40 40 mg PO DAILY 04/05/16 mg (*)] Ipratropium 0.06% Nasal [Atrovent 2 sprays EACHNARE DAILY PRN 04/05/16 0.06% Nasal] Diazepam [Valium 2 MG (*)] 4 mg PO HS 09/02/16 Polyethylene Glycol 3350 [Miralax 17 gm PO DAILY PRN 09/02/16 17 gm (*)] Zolpidem Tartrate [Ambien 10 mg] 10 mg PO HS 09/02/16 LORazepam [Ativan (*)] 0.5 - 1 mg PO Q6 PRN #0 tab 09/05/16 Medical Decision Making - Data Points Laboratory Results: Laboratory Results 09/02/16 13:14 09/02/16 13:14 Medications Given: Discontinued Medications Acetaminophen (Tylenol) 650 mg PO Q4HRS PRN PRN Reason: Pain, Mild/Fever, Can Take PO Stop: 03/01/17 14:26 Last Admin: 09/05/16 08:00 Dose: 650 mg Allopurinol (Allopurinol) 300 mg PO DAILY [facility] Stop: 03/02/17 08:59 Last Admin: 09/05/16 08:01 Dose: 300 mg Atorvastatin Calcium (Lipitor) 40 mg PO DAILY [facility] Stop: 03/02/17 08:59 Last Admin: 09/05/16 08:01 Dose: 40 mg Diazepam (Valium Injection) 5 mg IVP EDNOW ONE Stop: 09/02/16 13:22 Last Admin: 09/02/16 14:04 Dose: 5 mg Diazepam (Valium) 4 mg PO HS [facility] Stop: 03/01/17 23:48 Last Admin: 09/04/16 22:08 Dose: 4 mg Enoxaparin Sodium (Lovenox) 40 mg SC DAILY [facility] Stop: 03/02/17 08:59 Last Admin: 09/05/16 08:01 Dose: 40 mg Gabapentin (Neurontin) 100 mg PO ONCE ONE Stop: 09/04/16 12:51 Last Admin: 09/04/16 14:17 Dose: 100 mg Gabapentin (Neurontin) 300 mg PO TID [facility] Stop: 03/03/17 20:59 Last Admin: 09/05/16 16:04 Dose: 300 mg Sodium Chloride (Ns) 1,000 mls @ 0 mls/hr IV ONCE ONE; Wide Open PRN Reason: Protocol Stop: 09/02/16 13:06 Last Admin: 09/02/16 13:35 Dose: 1,000 mls Sodium Chloride (Ns) 1,000 mls @ 3,000 mls/hr IV ONCE ONE Stop: 09/02/16 14:46 Last Admin: 09/02/16 15:59 Dose: Not Given Lorazepam (Ativan Injection) 1 mg IVP ONCE ONE Stop: 09/02/16 18:22 Last Admin: 09/02/16 18:43 Dose: 1 mg Lorazepam (Ativan) 1 mg PO ONCE ONE Stop: 09/03/16 03:06 Last Admin: 09/03/16 03:31 Dose: 1 mg Lorazepam (Ativan) 1 mg PO ONCE ONE Stop: 09/03/16 15:59 Last Admin: 09/03/16 17:08 Dose: 1 mg Lorazepam (Ativan) 1 mg PO ONCE ONE Stop: 09/04/16 18:16 Last Admin: 09/04/16 20:42 Dose: Not Given Lorazepam (Ativan) 1 mg PO ONCE ONE Stop: 09/04/16 20:16 Last Admin: 09/04/16 20:08 Dose: 1 mg Lorazepam (Ativan) 0.5 - 1 mg PO Q6 PRN PRN Reason: ANXIETY Stop: 03/04/17 01:58 Last Admin: 09/05/16 19:20 Dose: 1 mg Magnesium Hydroxide (Milk Of Magnesia) 30 ml PO DAILY PRN PRN Reason: Constipation Stop: 03/03/17 12:50 Last Admin: 09/05/16 08:16 Dose: 30 ml Ondansetron HCl (Zofran Odt) 4 mg PO Q4HRS PRN PRN Reason: Nausea/Vomiting, Use 1st Stop: 03/01/17 14:26 Last Admin: 09/03/16 09:04 Dose: 4 mg Zolpidem Tartrate (Ambien) 10 mg PO [facility] Stop: 03/01/17 23:44 Last Admin: 09/04/16 22:08 Dose: 10 mg Departure - Departure Disposition: [facility] Acute Clinical Impression: Dizziness, Generalized weakness Condition: Fair
[2016-09-02] MEDS ORDERED: NS 1,000 ML IV ONE ×2 (13:05→14:27)
[2016-09-02] MEDS ORDERED: IOPAMIDOL (ISOVUE 370) 100 ML BTL IV ONE (13:20)
[2016-09-02] MEDS ORDERED: DIAZEPAM 10 MG/2 ML SYR IVP ONE (13:21)
[2016-09-02 13:28] LABS: % IMMATURE GRANULYOCYTES 0.6 % (0.0-1.1); ABSOLUTE IMMATURE GRANULOCYTES 0.05 10^3/uL (0.00-0.10); ADD DIFF? NO; ADD MORPH? NO; ADD SCAN? NO; ATYPICAL LYMPHOCYTE FLAG 20 (0-99); FRAGMENT RBC FLAG 0 (0-99); HEMATOCRIT 48.7 % (40.0-51.0); HEMOGLOBIN 16.8 g/dL (13.7-17.5); LEFT SHIFT FLG 20 (0-99); LIPEMIA HEMOLYSIS FLAG 90 (0-99); MEAN CELL HEMOGLOBIN 33.3 pg (27.9-34.1); MEAN CELL HEMOGLOBIN CONCENTR. 34.5 g/dL (32.4-36.7); MEAN CELL VOLUME 96.6 fL (81.5-99.8); MEAN PLATELET VOLUME 9.1 fL (8.7-11.7); PLATELET CLUMPS FLAG 10 (0-99); PLATELET COUNT 355 10^3/uL (150-400); RED BLOOD CELL COUNT 5.04 10^6/uL (4.40-6.38); RED CELL DISTRIBUTION WIDTH 13.9 % (11.5-15.2)
--- NOTE | 2016-09-02 13:29 | CPEKG ---
Heart Rate: 84 RR Interval: 714 P-R Interval: 176 QRSD Interval: 80 QT Interval: 376 QTC Interval: 445 P [place]: 67 QRS [place]: 32 T Wave [place]: 53 EKG Severity - NORMAL ECG - EKG Impression: SINUS RHYTHM Electronically Signed By: Isael Grijalva 02-Sep-2016 20:59:09
[2016-09-02 13:32] LABS: COLOR PALE YELLOW; LEUKOCYTE ESTERASE,URINE NEGATIVE (NEGATIVE); NITRITE,URINE NEGATIVE (NEGATIVE)
[2016-09-02 13:49] LABS: ALANINE AMINOTRANSFERASE 58 IU/L (21-72); ALBUMIN 4.5 g/dL (3.5-5.0); ALKALINE PHOSPHATASE 113 IU/L (38-126); ANION GAP 12 mEq/L (8-16); ASPARTATE AMINOTRANSFERASE 35 IU/L (17-59); BILIRUBIN,TOTAL 0.8 mg/dL (0.1-1.4); BILIRUBIN-CONJUGATED 0.4 mg/dL (0.0-0.5); BILIRUBIN-UNCONJUGATED 0.4 mg/dL (0.0-1.1); CALCIUM 9.9 mg/dL (8.5-10.4); CARBON DIOXIDE 21 mEq/l (22-31); CHLORIDE 107 mEq/L (97-110); GLOMERULAR FILTRATION RATE > 60; GLUCOSE 78 mg/dL (70-100); LITHIUM 0.4 mEq/L (0.6-1.2); MAGNESIUM 2.4 mg/dL (1.6-2.3); POTASSIUM 4.5 mEq/L (3.5-5.2); SODIUM 140 mEq/L (134-144); TOTAL PROTEIN 7.8 g/dL (6.3-8.2)
[2016-09-02 13:50] LABS: INR 0.91 (0.83-1.16); PROTIME(PATIENT) 12.1 SEC (12.0-15.0)
[2016-09-02 13:51] LABS: APTT 28.1 SEC (23.0-38.0)
[2016-09-02 14:02] LABS: TROPONIN I < 0.012 ng/mL (0-0.034)
[2016-09-02] MEDS ORDERED: ONDANSETRON 4 MG/2 ML VIAL IVP PRN (14:27)
[2016-09-02] MEDS ORDERED: ACETAMINOPHEN 325 MG TAB PO PRN (14:27)
[2016-09-02] MEDS ORDERED: ONDANSETRON DISINTEGRATING 4 MG TAB PO PRN (14:27)
[2016-09-02 14:39] LABS: CREATINE KINASE-MB FRACTION 1.44 ng/mL (0-3.19)
--- NOTE | 2016-09-02 15:38 | CPEKG ---
Heart Rate: 82 RR Interval: 732 P-R Interval: 180 QRSD Interval: 74 QT Interval: 372 QTC Interval: 435 P [place]: 61 QRS [place]: 22 T Wave [place]: 42 EKG Severity - NORMAL ECG - EKG Impression: SINUS RHYTHM Electronically Signed By: Dominick Lei 02-Sep-2016 16:55:55
--- NOTE | 2016-09-02 15:58 | GHP ---
[f rep st] HISTORY AND PHYSICAL DATE OF ADMISSION: 09/02/2016 CHIEF COMPLAINT: Severe dizziness. HISTORY OF PRESENT ILLNESS: This is a 66-year-old male with a history of opioid abuse in the past, treated on long-standing Suboxone, then transitioned to Belbuca recently by outpatient home school liaison officer. Medication had been titrated in the course of the last month. The patient describes since the init iation of Belbuca and its titration that he has had severe dizziness. In the last week it has been so profound that he has been unable to safely ambulate out of bed even to get mail from his mailbox. Patient did discuss this with his psychiatrist who felt there was no clinical correlation with the weaning of the medication to the dizziness he is experiencing and requested that he be further eval uated at the emergency department. In the ED, the patient describes such severe distress related to his dizziness that at times he has thought about life not being worth living. He did discuss this sensation of hopelessness and depres sophie with his psychiatrist who recently started him on low-dose lithium. He has intermittently been taking it because he has additionally developed urinary frequency they thought may be attributable to the new lithium medication. The patient denies any blood in his urine. Denies chest pain. Endorses this extreme dizziness with his eyes open or closed. He has terrible pain when keeping his eyes open which seems to be trigger ing migraine headaches which he has had long-standing. Denies any nausea or abdominal pain. Did re port dark stools which have changed back to normal consistency and color in the last 72 hours. Dewey es any shortness of breath. Denies any specific numbness or tingling. He does have severe back jovan n. Has headache and sensation of a very tight abdomen. The patient describes the dizziness as mildly provoked by position; however, present even with his e yes closed. He describes it as a sensation of the inside of his head spinning around, not specifica lly the environment around him spinning around. It improves when he closes his eyes, although is st ill persistent. PAST MEDICAL HISTORY: 1. Chronic opioid abuse on Suboxone and more recently Belbuca. 2. Migraine headaches. Previously treated chronically with Tylenol with codeine. 3. Depression. 4. Hyperlipidemia. 5. Gout. 6. Chronic back pain. 7. History of atrial arrhythmia status post single-chamber ablation. SOCIAL HISTORY: Negative for tobacco, alcohol or illicit drugs. FAMILY HISTORY: Negative for heart disease. REVIEW OF SYSTEMS: A 10-point review of systems is negative with the exception of that reported in HPI. ADVANCE DIRECTIVE: Patient is FULL CORE, FULL TUBE. His daughter would be his medical decision elizabeth ers. PHYSICAL EXAMINATION: VITAL SIGNS: Blood pressure 117/87, heart rate 84, respiratory rate 16, 95% on room air of 36/3. GENERAL: This is a healthy-appearing middle-aged male lying flat in bed with hi s eyes closed. HEENT: Notable for dry mucous membranes. Eyes negative for any icterus. CARDIAC: Patient is regular rate and rhythm. No murmurs, gallops, or rubs are appreciated. PULMONARY: Goo d respiratory effort. Clear to auscultation bilaterally. GASTROINTESTINAL: The patient has positiv e bowel sounds. Abdomen is soft. He is nontender in all 4 quadrants. MUSCULOSKELETAL: Negative f or any lower extremity edema. SKIN: Negative for any rashes. NEUROLOGIC: The patient's sensation is intact. His strength is intact. Noted to have 7 to 8 beats of horizontal nystagmus. Pupils are equal, round, reactive to light. Cranial nerves 2 through 12 are grossly intact. Gait was not elidia cked. DIAGNOSTIC DATA: White count is 9.0, hematocrit 48.7, platelets of 355. BMP notable for bicarb jair t is 21, anion gap that is 12, creatinine 1.0. Normal liver function tests. Troponin less than 0.0 12. TSH is 1.2. Urinalysis is negative. [place] level is 0.4. Benzodiazepines are positive. Noncontrast CT of the head, which I personally reviewed and interpreted, shows no acute findings. CTA of the head and neck, which I personally reviewed and interpreted, shows no acute vascular findi ngs. Chest x-ray, which I personally reviewed and interpreted, shows no acute infiltrates or edema. EKG, which I personally reviewed and interpreted, shows sinus rhythm, normal axis, no acute ST-T joshua nges. ASSESSMENT/PLAN: 1. Acute dizziness. Unclear to me by history. We can barely call this vertigo. Initial imaging in cluding CT/CTA are negative. Basic laboratories and EKG are also normal. My suspicion is high that the weaning of his nonopioid analgesics are certainly contributing to his presentation. Will ask f or neurology to consult related to additional diagnostics and/or possible therapeutics we can use to help control his symptoms. 2. Chronic migraines. Again we will hold off on narcotics at this time. Will wait for Neurology r ecommendations related to pain control and the use of his outpatient Belbuca. 3. Gout. Can continue his home medications without change. 4. Hyperlipidemia. Can continue his home medications without change. 5. Prophylaxis with Lovenox. DIET: Regular. DISPOSITION: I expect greater than 2 midnights. The patient is quite complex, will require neurolo gic consultation, additional diagnostics and a thorough therapy evaluation prior to safe disposition . I have discussed the case with the emergency room physician. The patient will be triaged to the medical-surgical floor for care. /[id number]/MODL
[2016-09-02] MEDS ORDERED: LORazepam 2 MG/ML INJ IVP ONE (18:21)
[2016-09-02] MEDS ORDERED: NON-FORMULARY NEW DRUG (Zolpidem Tartrate [Ambien 10 Mg] 10 MG) PO SCH (23:49)
[2016-09-03] MEDS: DIAZEPAM 2 MG TAB PO SCH ×2 (00:03→22:14)
[2016-09-03] MEDS: ZOLPIDEM TARTRATE 5 MG TAB PO SCH ×2 (00:03→22:15)
[2016-09-03] MEDS ORDERED: LORazepam 1 MG TAB PO ONE ×2 (03:05→15:58)
[2016-09-03 05:09] LABS: % IMMATURE GRANULYOCYTES 0.9 % (0.0-1.1); ABSOLUTE IMMATURE GRANULOCYTES 0.08 10^3/uL (0.00-0.10); ADD DIFF? NO; ATYPICAL LYMPHOCYTE FLAG 0 (0-99); FRAGMENT RBC FLAG 0 (0-99); HEMATOCRIT 43.9 % (40.0-51.0); HEMOGLOBIN 14.9 g/dL (13.7-17.5); LEFT SHIFT FLG 10 (0-99); MEAN CELL HEMOGLOBIN CONCENTR. 33.9 g/dL (32.4-36.7); MEAN CELL VOLUME 97.1 fL (81.5-99.8); MEAN PLATELET VOLUME 9.3 fL (8.7-11.7); PLATELET COUNT 304 10^3/uL (150-400); RED BLOOD CELL COUNT 4.52 10^6/uL (4.40-6.38)
[2016-09-03 05:10] LABS: ADD MORPH? NO; ADD SCAN? NO; LIPEMIA HEMOLYSIS FLAG 90 (0-99); PLATELET CLUMPS FLAG 0 (0-99)
[2016-09-03 05:19] LABS: ANION GAP 10 mEq/L (8-16); CARBON DIOXIDE 21 mEq/l (22-31); CHLORIDE 110 mEq/L (97-110); CREATININE 1.1 mg/dL (0.7-1.3); GLOMERULAR FILTRATION RATE > 60; GLUCOSE 83 mg/dL (70-100); POTASSIUM 4.6 mEq/L (3.5-5.2); SODIUM 141 mEq/L (134-144)
[2016-09-03] MEDS ORDERED: POLYETHYLENE GLYCOL 3350 17 GM PKT PO PRN (08:31)
[2016-09-03] MEDS ORDERED: IPRATROPIUM 0.06% NASAL SPRAY EACHNARE PRN (08:31)
[2016-09-03] MEDS ORDERED: LITHIUM CARBONATE ER 300 MG TAB PO SCH (09:00)
--- NOTE | 2016-09-03 09:01 | HOSPPROG ---
Hospitalist Progress Note Assessment/Plan: # dizziness - persistent; not really c/w vertigo; neg neuro imaging - ddx: opiate w/d, bzd use, migraine sequela, cardiac (less likely) - neuro consult - trial of zofran # headache disorder - off all meds currently # chronic pain - currently off all narcotics for 17 days # gout - allopurinol # HLD - statin Subjective: ongoing dizziness Objective: Vital Signs Temp Pulse Resp BP Pulse Ox 36.6 C 90 14 113/82 H 97 09/03/16 08:00 09/03/16 08:00 09/03/16 08:00 09/03/16 08:00 09/03/16 08:00 Laboratory Results 09/03/16 04:54 09/03/16 04:54 09/02/16 09/03/16 09/04/16 05:59 05:59 05:59 Intake Total 1000 Balance 1000 PT 12.1 SEC (12.0-15.0) 09/02/16 13:14 INR 0.91 (0.83-1.16) 09/02/16 13:14 chart reviewed all imaging reviewed CXR personally reviewed - Physical Exam Constitutional: no apparent distress, appears nourished Cardiovascular: regular rate and rhythym, no murmur, rub, or gallop Respiratory: no respiratory distress, no rales or rhonchi, clear to auscultation ICD10 Worksheet Patient Problems: Problems Problem Status Onset Lumbar degenerative disc disease Acute Dizziness Acute Generalized weakness Acute
[2016-09-03] MEDS: ATORVASTATIN CALCIUM 40 MG TAB PO SCH (09:04)
[2016-09-03] MEDS: ALLOPURINOL 300 MG TAB PO SCH (09:04)
[2016-09-03] MEDS: ENOXAPARIN 40 MG/0.4 ML SYR SC SCH (09:04)
--- NOTE | 2016-09-03 12:30 | PDCONSULT ---
Carpet Installation Specialist Note: HOSPITAL NEUROLOGY CONSULT REQUESTING: Uri Oakley MD REASON: dizziness HPI: This is a 66 year old right-handed man with a history of chronic pain, prior opiate dependence transitioned to buprenorphine therapy who presented to our ED yesterday with unrelenting dizziness. Patient states he had a remote lumbar fusion surgery, which resulted in his initial opiate dependence due to chronic low back pain. He had been transitioned to buprenorphine therapy and was weaned from this. However, in March he had another lumbar surgery and post-op he was in a great deal of low back pain, so he was started back on buprenorphine. He states more recently he was transitioned to a newer oral/buccal film delivery system (Belbuca). He wanted to get off of this medication, so the plan was to gradually wean himself off. He was on a high dose, 900mcg, which about 17 days ago he stopped cold turkey. Since stopping the medicine, he has felt a sense of abnormal moving sensation in his head, sort of a severe "swimmy" feeling "like I have the flu" without any markel room spinning vertigo. He has accompanied somnolence, wanting to nap frequently, in addition to frequent yawning. He states the "swimming" sensation in his head has been unrelenting and present all day, worse when he wakes from a nap. He has felt unsteady on his feet, but has not fallen. He denies any visual disturbance, including vision loss or diplopia. No hearing changes. No weakness, sensory loss, speech/language change. He has experienced episodic worsening of longstanding migraines (for which he previously was treated at another inpatient facility in [place] to wean from narcotics). He is namely concerned he may be in a prolonged withdrawal state from buprenorphine. He underwent a comprehensive neurologic workup here including MRI brain wo and CTA head/neck which were unremarkable. ROS: As per the HPI, otherwise a complete 12 point ROS was performed and is negative ALLERGIES AND MEDS: As recorded in the EMR - reviewed and reconciled PFSH: As per the intake H&P by Dr. Alcala from yesterday EXAM: VS reviewed in EMR GEN: WDWN laying in NAD HEENT: NCAT, sclera anicteric, conjunctiva not injected, MMM, oropharynx clear, no scalp tenderness NECK: supple, nontender, no meningismus CV: RRR s1 s2 wo m/r/c/g. Carotid pulses 2+ wo bruit NEURO: MS: awake, alert, oriented to all spheres. Speech nondysarthric. No language disturbance. Follows commands. Attends to both sides. Recent/remote memory grossly intact. Mood euthymic. Good fund of knowledge. CN: pupils 3mm round and reactive. Fundi with sharp discs. VFF. Primary gaze centered - no skew deviation. Full ocular motility. No nystagmus. Facial sensation preserved. Face symmetric. Hearing grossly intact to finger rub. Palatoglossal movements intact. Shoulder shrug and head turn strong. MOTOR: normal bulk/tone. No adventitial movements. Full power throughout. SENSORY: intact to all modalities throughout. No extinction. COORD: no ataxia FN/HS. Romeo preserved. Romberg neg. REFLEX: plantars down. No clonus. DTRS absent. GAIT: rises unassisted. Narrow base. A bit cautious with gait, but no abnormal gait pattern. Turns with 3 steps. Has some minor difficulty with tandem gait, taking a step off, but can tandem for the most part. DATA REVIEW: Labs reviewed in EMR PERSONALLY INTERPRETED RESULTS AND DATA: CTA head/neck - patent intracranial and extracranial vasculature MRI brain wo - nothing acute, unremarkable study IMPRESSION AND RECOMMENDATIONS: // BUPRENORPHINE WITHDRAWAL // CHRONIC PAIN // HX OPIATE DEPENDENCE Patient with symptoms of vague "swimmy" and flu-like feeling in his head coinciding with stopping high dose oral/buccal buprenorphine. He is also experiencing more sleepiness and yawning. His neurologic exam shows no focal deficit, neuroimaging is unremarkable, no markel vertigo symptoms and no other red-flag symptoms such as diplopia, vision loss, hearing change, etc... Symptoms consistent with buprenorphine withdrawal, which can last upwards of 30 days. Defer withdrawal treatment to primary team - may need to restart buprenorphine with a scheduled taper - abrupt cessation is culprit in current symptoms. PT evaluation. Followup with his outpatient chronic pain providers. Followup with his headache providers regarding chronic migraine. I would be happy to see him in consultation as an outpatient if he desires. No further neurologic recommendations. Will sign off.
[2016-09-03] MEDS ORDERED: NON-FORMULARY NEW DRUG (Zolpidem Tartrate [Ambien 10 Mg] 10 MG) PO SCH (21:00)
[2016-09-04] MEDS: ALLOPURINOL 300 MG TAB PO SCH (09:19)
[2016-09-04] MEDS: ATORVASTATIN CALCIUM 40 MG TAB PO SCH (09:19)
[2016-09-04] MEDS: ENOXAPARIN 40 MG/0.4 ML SYR SC SCH (09:22)
[2016-09-04] MEDS ORDERED: GABAPENTIN 100 MG CAP PO ONE (12:50)
--- NOTE | 2016-09-04 12:53 | HOSPPROG ---
Hospitalist Progress Note Assessment/Plan: # dizziness - persistent; not really c/w vertigo; neg neuro imaging - ddx: opiate w/d, bzd use, migraine sequela, cardiac (less likely), daughters concerned this is psychogenic - psychiatry consult today - trial of gabapentin # headache disorder - off all meds currently # chronic pain - currently off all narcotics for 18 days # gout - allopurinol # HLD - statin Subjective: still feels very poorly; constipated Objective: Vital Signs Temp Pulse Resp BP Pulse Ox 36.4 C 87 16 123/74 H 94 09/04/16 08:00 09/04/16 08:00 09/04/16 08:00 09/04/16 08:00 09/04/16 08:00 Laboratory Results 09/03/16 04:54 09/03/16 04:54 09/03/16 09/04/16 09/05/16 05:59 05:59 05:59 Intake Total 1000 1500 Balance 1000 1500 PT 12.1 SEC (12.0-15.0) 09/02/16 13:14 INR 0.91 (0.83-1.16) 09/02/16 13:14 - Time Spent With Patient Time Spent with Patient: greater than 25 minutes Time Spent with Patient: Greater than 25 minutes spent on this patients care, greater than 50% of time spent counseling, educating, and coordinating care regarding the above mentioned plan. - Physical Exam Constitutional: appears nourished, uncomfortable Respiratory: no respiratory distress ICD10 Worksheet Patient Problems: Problems Problem Status Onset Lumbar degenerative disc disease Acute Dizziness Acute Generalized weakness Acute
[2016-09-04] MEDS ORDERED: LORazepam 1 MG TAB PO ONE ×2 (18:15→20:15)
[2016-09-04] MEDS: ZOLPIDEM TARTRATE 5 MG TAB PO SCH (22:08)
[2016-09-04] MEDS: DIAZEPAM 2 MG TAB PO SCH (22:08)
[2016-09-04] MEDS: GABAPENTIN 300 MG CAP PO SCH ×2 (22:09→23:58)
[2016-09-04] MEDS: MAGNESIUM HYDROXIDE 30 ML UDCUP PO PRN (22:14)
[2016-09-05] MEDS: LORazepam 0.5 MG TAB PO PRN ×3 (02:03→19:20)
[2016-09-05 07:41] VITALS: RESP 16
[2016-09-05] MEDS: ATORVASTATIN CALCIUM 40 MG TAB PO SCH (08:01)
[2016-09-05] MEDS: ENOXAPARIN 40 MG/0.4 ML SYR SC SCH (08:01)
[2016-09-05] MEDS: ALLOPURINOL 300 MG TAB PO SCH (08:01)
[2016-09-05] MEDS: GABAPENTIN 300 MG CAP PO SCH ×2 (08:01→16:04)
[2016-09-05] MEDS: MAGNESIUM HYDROXIDE 30 ML UDCUP PO PRN (08:16)
[2016-09-05 14:44] VITALS: BP 103/77; PULSE 90; TEMP 97.6; O2SAT 92
--- NOTE | 2016-09-05 15:55 | HOSPPROG ---
Hospitalist Progress Note Assessment/Plan: # dizziness - persistent; not really c/w vertigo; neg neuro imaging - ddx: opiate w/d, bzd use, migraine sequela, cardiac (less likely), daughters concerned this is psychogenic - appreciate psychiatry consult - seen by Dr Marie yesterday, recs still pending - trial of gabapentin # passive SI - he has multiple risk factors for possible suicide attempt - appreciate psychiatry assistance, consider [facility] admission # headache disorder - off all meds currently # chronic pain - currently off all narcotics for 19 days # gout - allopurinol # HLD - statin Subjective: still feels poorly; very depressed; his partner broke up with him today; care coordinated with patient, daughters, classification case manager, RN Objective: Vital Signs Temp Pulse Resp BP Pulse Ox 36.4 C 90 16 103/77 92 09/05/16 14:43 09/05/16 14:43 09/05/16 14:43 09/05/16 14:43 09/05/16 14:43 Laboratory Results 09/03/16 04:54 09/03/16 04:54 09/04/16 09/05/16 09/06/16 05:59 05:59 05:59 Intake Total 1500 1500 Balance 1500 1500 PT 12.1 SEC (12.0-15.0) 09/02/16 13:14 INR 0.91 (0.83-1.16) 09/02/16 13:14 - Time Spent With Patient Time Spent with Patient: greater than 35 minutes Time Spent with Patient: Greater than 35 minutes spent on this patients care, greater than 50% of time spent counseling, educating, and coordinating care regarding the above mentioned plan. - Physical Exam Constitutional: no apparent distress, other (depressed affect) ICD10 Worksheet Patient Problems: Problems Problem Status Onset Lumbar degenerative disc disease Acute Dizziness Acute Generalized weakness Acute
--- NOTE | 2016-09-05 18:34 | GDS ---
[f rep st] DISCHARGE SUMMARY FINAL DIAGNOSES: 1. Dizziness with unclear etiology, possibly psychogenic. 2. Passive suicidal ideation. 3. Headache disorder. 4. Chronic pain, off narcotics for 19 days. 5. Gout. 6. Hyperlipidemia. HOSPITAL COURSE: This is a 66-year-old man admitted with unexplained dizziness. He underwent a thorough evaluation including non-contrast head CT which showed nothing acute, CT angiogram head and neck which showed no acute vascular findings, brain MRI which showed nothing acute. He was seen by Neurology who also agreed. He has been also seen by Dr. Whiting with Psychiatry. Both of us are concerned about his passive suicidal ideation in the setting of potentially narcotic withdrawal though symptoms are quite atypical, potentially this is a psychosomatic manifestation of underlying depression. He has also just broken up with his significant other. He will be admitted to [facility] at [place]. He is accompanied by his daughters who agree with this treatment. He desires to continue with his cessation of narcotics at this point. I spent more than 30 minutes on the day of discharge coordinating care. /[id number]/MODL MTDD
--- NOTE | 2016-09-05 19:04 | BCON ---
[f rep st] BEHAVIORAL HEALTH CONSULTATION PSYCHIATRIC CONSULTATION PATIENT IDENTIFICATION: The patient presents as a 66-year-old, , white male who has been currently living with his female important other in her home for the past 5 years, is unemployed and retired, is followed as a community psychiatric patient by his private psychiatrist in [place], Dr. Guerra; he was admitted to the medical service on 09/02/2016 for complaints of a progressive syndromal picture which on admission included severe dizziness, internal sense of spinning (not true vertigo), generalized weakness to a level of acuity where the patient had difficulty maneuvering out of bed. CONSULTATIVE REQUEST: I was asked to assess the patient's s mental status, integrating his chronic psychiatric syndromal history with his chronic pain history and the acute syndrome referenced above leading to the admission; the primary question is involving diagnosis and dispositional planning for this patient when he is medically cleared. HISTORY OF PRESENT ILLNESS: The patient does have a chronic history for various somatic pain syndromes extending back over 20 to 30+ years. He has used prescribed opiates for extended periods of time. More recently, the patient had his initial back surgery for progressive back pain approximately 7 years ago. Since then, he has been on constant opioid coverage. 6 years ago, the patient experienced an acute affective decompensation, details are unclear but intake data suggests it was a mixed bipolar regression. He was hospitalized for 1-2 weeks at [facility] at that time and was discharged to initiate treatment with his community psychiatrist, Dr. Guerra. He has been followed in medication management by Dr. Guerra with intermittent incidents of psychotherapy since that time. Most recently, the patient had a 2nd back surgery in March of 2016. This was a surgical intervention for worsening back pain. Details of the intervention will be clarified. Since his surgery, the patient was initially treated by his surgeon and then a pain specialist, receiving a combination of morphine and hydrocodone over a period which involved several regimens extending over a period of several months. He was then switched to a Suboxone regimen, which ultimately was changed to the buccal film version of Suboxone, Belbuca. The Belbuca regimen began 2-3 months ago and was dosed up to 900 mcg daily. The patient at some point on the Belbuca began to experience dizziness and weakness which progressed in intensity. The patient switched to a second pain specialist physician in the middle of July. At that time, he requested to be tapered off the Belbuca and this was initiated. He was tapered from 900 mcg to 300 mcg daily and then the Belbuca was discontinued. The stoppage date was 18 days prior to this admission. Patient's complaints have continued beyond the discontinuation of Belbuca and have intensified to include severe dizziness, severe internal sense of the environment spinning, progressive weakness. This syndrome reached crisis proportions which prompted his self-referral to the emergency room. Complaints did include headaches, breakthrough back pain, disturbed sleep. .Sometime prior to admission, patient's psychiatrist had placed the patient on lithium carbonate for complaints of suicidal ideation and syndromal depression. He was not taking other psychoactive medications prior to starting the lithium. HOSPITAL COURSE: The patient's workup over the first few days included an EKG which identified no abnormality, a head CT without contrast was negative. A CT angiogram looking at his head and neck vasculature was also negative. A brain MRI evidenced no acuity and mild generalized atrophy. Blood screens including a troponin-I were negative, serum lithium was reported as 0.4. The patient was seen in consultation by Neurology on September 03. Clinical impression by exam and history was that patient was experiencing a buprenorphine withdrawal syndrome. I initially saw the patient on 09/04 and he presented on exam as follows: MENTAL STATUS EXAM (09/04): The patient was relatively calm and cooperative with the initial contact. He was conversant with full reality testing capacity with no evidence for psychosis. His mood state was significantly dysphoric, consistent with a clinical depression. The patient denied suicidality but did acknowledge passive suicidal ideation prior to admission. He provided narrative content consistent with the above-referenced history. He did acknowledge his psychiatric symptom and treatment history but it appeared to he was understating the chronicity and severity of symptoms versus the intake data supplied by his daughters. He expressed limited insight psychiatrically but was cooperative, judgment intact, and thought process logical, linear, and goal focused in the sense that he was very invested in getting help for his "pain" complaints. He gave me permission to contact his pain management doctors and his psychiatrist and understood I would be following up with him on 09/05. In the interim between my initial contact 09/04 and today 09/05, the patient learned that his live-in girlfriend wanted to separate as she found dealing with the patient's problems along with her own, which included the precipitous of an adult daughter within the past 8 months, was more than she could manage. This decision renders the patient homeless, adding a significant primary stress to his clinical picture. MENTAL STATUS EXAM (09/05): The patient again presents as cooperative and conversant. His mood state is clearly more depressed than yesterday. He again denies suicidal ideation but acknowledges he does not feel ready to leave the hospital and manage himself safely. He had shared this content with his attending doctor previously. He openly acknowledged the affective pain associated with the separation imposed on the relationship by his girlfriend. He was responsive to my suggestion that we extend his inpatient stay but move him to the inpatient psychiatric service to initiate treatment for his syndromal depression, complete a detailed psychiatric and pain management workup. Patient is agreeable to this suggestion and appears somewhat relieved. The patient's daughters were also present in the latter part of the session and wholeheartedly supported this intervention. I clarified for the patient and his daughters that we would activate the transfer following discharge from the medical unit to be admitted to the psychiatric service later today. DIAGNOSTIC IMPRESSION: [place] I: 1. Depressive Disorder, not otherwise specified: Currently at acute level, currently intensified by patient's news today of the separation and eviction from his current living situation in which he has lived with his girlfriend in her home for the past 5 years. 2. Rule out Primary Mood Disorder including question of Bipolar variant. 3. Rule out Primary Anxiety Disorder. 4. Opioid dependence: The patient has currently been opioid free for approximately 20 days; any withdrawal syndrome to his most recent opioid, Belbuca, should be resolved. [place] Johns II: Deferred. [place] Johns III: 1. Chronic pain syndrome secondary to structural back deformities 2. Post 2 back surgeries, first 2009, second March 2016. 3. Gout. 4. Migraine headache syndrome. 5. Atrial arrhythmia, post single vessel ablation procedure. [place] Johns IV: Stressors associated with chronic vulnerability to affective instability, possible diagnoses as referenced above; opioid dependence, recent imposed separation and eviction by patient's girlfriend, question financial stress. [place] V: Current GAF 35. RECOMMENDATIONS: Patient, per discussion with the patient's attending physician , Dr. Oakley, will be discharged later today and admitted to [address] [place] [address] on an M1 hold; no psychoactive medications to be prescribed prior to [address] [place] [address] admission; expedited calls will be made to the patient's community physicians including his psychiatrist, pain specialist, and PCP, to facilitate detailed psychiatric/ pain workup. /[id number]/MODL MTDD
== END 2016-09-05 19:58 | DRG 149 ==
LOC: F3E 15:15
PROVIDERS: ADMIT Hospitalist; ATTEND Hospitalist
DX: R42 Dizziness and giddiness (principal); R45.851 Suicidal ideations; F45.8 Other somatoform disorders; F32.9 Major depressive disorder, single episode, unspecified; G89.29 Other chronic pain; G43.909 Migraine, unspecified, not intractable, without status migrainosus; M10.9 Gout, unspecified; Z98.1 Arthrodesis status
CPT/HCPCS: 80305; 82607-90; 84481-90; 97112-GP; 97116-GP; 97161-GP; 97165-GO; G8978-GP-CJ; G8979-GP-CI; G8987-GO-CI; G8988-GO-CI; G8989-GO-CI; J1650; J2060; Q9967

== ENCOUNTER 2016-09-05 20:25 | Inpatient (IN) | payer OTHER, MEDICARE ==
[2016-09-05] MEDS ORDERED: MAG HYDROX/AL HYDROX/SIMETH 30 ML UDCUP PO PRN (21:47)
[2016-09-05] MEDS ORDERED: IPRATROPIUM 0.06% NASAL SPRAY EACHNARE PRN (21:52)
[2016-09-05] MEDS: GABAPENTIN 300 MG CAP PO SCH (22:04)
[2016-09-05] MEDS: DIAZEPAM 2 MG TAB PO SCH (22:04)
[2016-09-05] MEDS: POLYETHYLENE GLYCOL 3350 17 GM PKT PO SCH (22:05)
[2016-09-05] MEDS: ZOLPIDEM TARTRATE 5 MG TAB PO PRN (22:05)
[2016-09-06] MEDS: LORazepam 0.5 MG TAB PO PRN ×3 (02:46→20:55)
[2016-09-06] MEDS: MAGNESIUM HYDROXIDE 30 ML UDCUP PO PRN (08:27)
[2016-09-06] MEDS: ALLOPURINOL 300 MG TAB PO SCH (08:27)
[2016-09-06] MEDS: ATORVASTATIN CALCIUM 40 MG TAB PO SCH (08:27)
[2016-09-06] MEDS: GABAPENTIN 300 MG CAP PO SCH ×3 (08:27→22:10)
--- NOTE | 2016-09-06 18:08 | BCON ---
[f rep st] BEHAVIORAL HEALTH CONSULTATION INTERNAL MEDICINE CONSULTATION DATE OF CONSULTATION: 09/06/2016 REFERRING PHYSICIAN: Anna Marie MD REASON FOR REFERRAL: Medical clearance for inpatient behavioral health stay. HISTORY OF PRESENT ILLNESS: The patient was admitted to [facility] on with the symptom of dizziness and gait instability. He had a very complete workup including CT of the brain, CT cerebral angiography, brain MRI, an electrocardiogram, chest x-ray, laboratory studies, and a neurology consultation; and no etiology was found for these symptoms other than presumably prolonged symptoms of buprenorphine withdrawal. He had had a gradual taper, and then discontinuation of buprenorphine, and symptoms started around that time. He reports that he had a period of soft black stools during his withdrawal, but laboratory studies were not consistent with GI bleeding, he had no anemia. Currently, he complains of hypersensitivity to touch. He has a history of neuropathic symptoms on the bottoms of his feet which he attributes to a prior back surgery with reduced plantar sensation, and this has been worse during his period of withdrawal from the buprenorphine. He continues to have the symptom of dizziness, which is more like moving inside and is not a true vertigo. However, he is able to ambulate well. He is concerned that he is losing muscle and getting out of shape, as he is accustomed to exercising. PAST MEDICAL HISTORY: 1. Dyslipidemia. 2. Chronic pain with multiple back surgeries. 3. Chronic opiate use. 4. Dyslipidemia. 5. Gout. PAST SURGICAL HISTORY: He has had several back surgeries, most recently in March of 2016. He has had an ablation for an atrial arrhythmia. MEDICATIONS: Prior to admission, I do not have a complete list; however, he was taking a statin medication, allopurinol for gout, and he had recently discontinued buprenorphine. He was also taking Valium for sleep under the care of a psychiatrist. SOCIAL HISTORY: He is retired. 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 He reports that he got into financial difficulty during the economic downturn in 2007. At the same time, he was going through a divorce, his mother and he had a crescendo of back problems, and had a brief psychiatric hospitalization. He is a nonsmoker. He has been sharing a house with a girlfriend, but she does not want him to move back. He has local daughters, and he has been and twice. FAMILY HISTORY: His mother at age 92 with dementia. REVIEW OF SYSTEMS: He reports his gastroenterologic symptoms have normalized. He has no dysuria or urinary frequency. He has hypersensitivity to touch and his neuropathy in his feet has gotten worse with this hypersensitivity. He continues to have a feeling of his head swimming or dizziness but without true vertigo. He has no nausea with this symptom. He has fatigue. He is concerned that he is losing muscle mass. Otherwise, a 10-point review of systems is negative. PHYSICAL EXAM: VITAL SIGNS: Blood pressure this morning was 160/72. Otherwise , during the course of his hospitalization, blood pressures have been normal or a little bit on the low side. Heart rate was 77, respiratory rate was 17, oxygenation was 95% on room air. Temperature is 36.7 degrees centigrade. His weight is 77 kg for a body mass index of 24.4. GENERAL: This is a well- nourished, well-developed man, appears his chronologic age, cooperative, and in no acute distress. HEENT: Extraocular movements are intact. Pupils are equal , round, and reactive to light. Mucous membranes are moist. Dentition is in good condition. He has an uncrowded airway, Mallampati class 1. NECK: Supple. HEART: There is a regular rate and rhythm with no murmurs, rubs, or gallops. LUNGS: Clear to auscultation bilaterally. ABDOMEN: Soft, nontender , nondistended with normoactive bowel sounds. EXTREMITIES: There is no cyanosis, clubbing, or edema. NEUROLOGIC: He is alert and oriented x3. Cranial nerves 2-12 are grossly intact. There is no focal weakness. Sensation is intact to light touch. Deep tendon reflexes are 2+ bilaterally at the biceps , patellar, and Achilles tendons. His gait is overall within normal limits. LABORATORY STUDIES: From his recent hospital stay, CBC was totally within normal limits but for a slight increase in absolute monocytes of no clinical significance. Coagulation studies revealed normal PT, PTT and D-dimer. Venous blood lactic acid was 1.8, normal. Serum chemistry revealed a slightly low carbon dioxide of 21. Magnesium was slightly high at 2.4. Otherwise, renal function, liver functions and electrolytes were within normal limits. Creatine kinase was normal. Troponin was not elevated. BNP was not elevated. Lipase was normal. TSH was normal. Urinalysis was completely normal. Toxicology in the urine was non-negative for benzodiazepines. Toxicology in the serum revealed a lithium level of 0.4; he had been recently prescribed lithium by his psychiatrist. ASSESSMENT/RECOMMENDATIONS: 1. Mental health issues, pending further evaluation and management per Psychiatry and the Mental Health Team. 2. Buprenorphine withdrawal. The neurology instructional consultant's comment was that this can take up to a month to be completed. It is likely that the hyperalgesia is consistent with buprenorphine withdrawal, and it is to be hoped that these symptoms will resolve over the course of the next week or 2. 3. Chronic pain. He is prescribed acetaminophen, which he has not used since yesterday morning. Given his history of opiate dependence, it is appropriate to continue with acetaminophen. 4. Dyslipidemia. Continue atorvastatin. Labs have ruled out any liver abnormalities or myopathies that might be associated with statin use. 5. Gout. Continue allopurinol. 6. Regarding hyperalgesia, he is prescribed gabapentin 300 mg three times daily. Might consider increasing this dose as it could ameliorate some of his withdrawal symptoms, and in particular, the hyperalgesia. Would, however, be somewhat cautious regarding his subjective dizziness and gait instability. 7. Elevated blood pressure, unclear etiology. It is 1 isolated reading. Continue serial blood pressure measurement. 8. Possible deconditioning. Advise increasing exercise as tolerated. I see no medical contraindications to the patient's continued stay on the inpatient behavioral health unit or to any psychiatric medications or procedures. Thank you very much for including me in the care of this patient. Please do not hesitate to contact me or the hospitalist service should there be need for further medical evaluation. /[id number]/MODL MTDD
[2016-09-06] MEDS: POLYETHYLENE GLYCOL 3350 17 GM PKT PO SCH (22:10)
[2016-09-06] MEDS: DIAZEPAM 2 MG TAB PO SCH (22:10)
[2016-09-06] MEDS: ZOLPIDEM TARTRATE 5 MG TAB PO PRN (22:15)
[2016-09-07] MEDS: LORazepam 0.5 MG TAB PO PRN ×4 (01:50→20:47)
[2016-09-07] MEDS: GABAPENTIN 300 MG CAP PO SCH ×2 (08:45→15:53)
[2016-09-07] MEDS: ALLOPURINOL 300 MG TAB PO SCH (08:45)
[2016-09-07] MEDS: ATORVASTATIN CALCIUM 40 MG TAB PO SCH (08:45)
--- NOTE | 2016-09-07 08:59 | BAPA ---
[f rep st] ADMISSION PSYCHIATRIC ASSESSMENT PATIENT IDENTIFICATION: The patient presents as a 66-year-old, , white male who has been living with his common-law for a period of 4+ years, residing in her home, is unemployed, currently retired. The patient is followed in the community as a psychiatric outpatient by psychiatrist, Dr. Guerra , for the past 6+ years. He was admitted to the medical service on 09/02/2016 for complaints of a progressive syndromal picture including severe dizziness, internal sense of spinning (not true vertigo), generalized weakness to a level of acuity where the patient had difficulty maneuvering out of bed, resulting in a self-referral to the [facility] emergency room. I saw the patient in consultation on 2 occasions, 09/04 and 09/05, identified severe syndromal depression and a chronic history suggesting recurrent depressive symptoms, anxiety symptoms, and question of primary mood instability. The patient was deemed severely disabled and a self-harm risk out of a secure hospital setting, resulting in his discharge from the medical service and admission to [address] [place] [address] on an M1 hold. CHIEF COMPLAINT: "I've been getting worse; all I want to do is close my eyes and lay down because of the dizziness and maybe give up all together", stated to the [facility] contact prior to admission to [address] [place] [address]. HISTORY OF PRESENT ILLNESS: The patient presents, as referenced, with a chronic history for recurrent symptoms of depression, anxiety, and possibly primary mood instability. This syndromal vulnerability appears to have surfaced when patient was in his 20s. Paralleling this affect of instability has been the presence of chronic pain. In his 20s, this pain manifested as migraine headaches associated with a familial history of migraine headaches affecting multiple family members. Given this syndromal history, the patient has utilized prescribed opiates for extended periods beginning in his 20s. There is also a more remote history of self medicating affective symptoms and pain symptoms with alcohol. More recently, the patient developed back pain secondary to structural vertebral problems. He underwent an initial back surgery including vertebral fusion in 2009. Since that time, he has been on a constant regimen of opioids to manage the pain. Prior to and at the time of this back surgery, the patient had also experienced several other stressful events. His close lifelong relationship with his mother ended when she in either 2006 or 2007, at the age of 92 with end-stage dementia. The patient also experienced a divorce from his second on or around this time. This divorce process was highly conflictual for the patient per his report. In addition, the patient experienced severe financial distress associated with the divorce and the economic downturn beginning in 2007. Patient had established outpatient psychiatric treatment including medication management and psychotherapy for a period of time predating his back surgery in 2009. Some months following his back surgery, he experienced an acute decompensation, reported as a possible mixed bipolar regression for which he was hospitalized at the [facility] inpatient service for approximately 9 days. He was discharged, stepping down to a 2 week course of treatment in a [facility] and then began his outpatient relationship with Dr. Guerra, a psychiatrist based in [place]. He has continued to see Dr. Guerra for psychotherapeutic sessions and medication management through to the present time. Most recently, c/o increasing back pain in 2015, the patient sought a second back surgery, receiving several surgical consultations before undergoing a second surgical intervention in March of 2016. The surgery was done at [facility]. Since recovering from that surgery, the patient has continued to have pain complaints , managed sequentially by 2 pain specialists. He initially was treated with hydrocodone and morphine sulfate. This regimen was transitioned to a period of Suboxone treatment. Beginning approximately 2 months ago, he was transitioned again to a buccal film Suboxone preparation called Belbuca. While on Belbuca, the patient developed complaints of dizziness, generalized weakness, internal sense of spinning. He changed pain specialists in mid July and requested tapering off the Belbuca. His dosing was decreased from 900 mcg to 300 mcg. He then discontinued this medication 18 days prior to his admission to the medical service on 09/02/2016. His dizziness, internal spinning and weakness complaints intensified after stopping the Belbuca. These complaints continued to progress through to his presentation in the emergency room and admission to the medical service on . Following the patient's admission to , he was worked up thoroughly which included several EKGs, head CT without contrast, CT angiogram focused on head and neck vasculature, brain MRI, and multiple blood screens including a troponin I. His serum lithium was reported as 0.4. Medical workup was negative for any active medical problems. He had been placed on lithium, dosing unclear , at some point in his pre-admission course by his community psychiatrist. He was seen in consultation by Neurology on September 03. Neurology concluded the patient was experiencing an extended Suboxone withdrawal. As referenced, I saw the patient in 2 consultative contacts on September 04 and , identified his significant syndromal depression including passive suicidality and his report of not being safe out of the hospital setting. On September 05, the patient also learned that his common-law had requested a separation as she reported to him she was "overwhelmed" at having to contend with his syndromal problems. I suggested a transfer to the Psychiatric Service to initiate psychiatric treatment, definitive workup, and further assessment of his pain management. The patient agreed to the transfer and admission which were strongly endorsed by his 2 daughters. PSYCHIATRIC HISTORY: Patient's treatment history will be needing additional clarification in intake phase. We do know that he has had incidents of outpatient treatments in his earlier life prior to beginning with his current psychiatrist, Dr. Guerra, 6 years ago. These incidents of outpatient treatment had included episodes of psychotherapy as well as use of psychoactive medications. He has seen Dr. Guerra on a regular basis for medication management services and psychotherapeutic sessions. He began the outpatient work with Dr. Guerra following a 9-day inpatient stay at the [facility] inpatient psychiatry service within less than a year after his back surgery in 2009. Following his 9-day inpatient stay, he stepped down to a 2-week stay at a [facility] and then initiated his outpatient work with Dr. Guerra. He did see a psychotherapist briefly that he discontinued and has worked exclusively with Dr. Guerra in his outpatient treatment plan through to the present time. We do know that Dr. Guerra prescribed lithium 1-2 months prior to his admission to the medical service on 09/02/2016. Patient's serum lithium level on admission to the medical service was reported as 0.4. MEDICAL HISTORY: 1. Dyslipidemia. 2. Chronic pain associated with multiple back surgeries and bilateral neuropathic foot pain 3. Gout. 4. Migraine headache syndrome. 5. Atrial arrhythmia, post single-vessel ablation procedure. ALLERGIES: Patient has no known food or environmental allergies. He does have a medication allergy to penicillin. MEDICAL REVIEW OF SYSTEMS: Patient reports a hypersensitivity to touch and his neuropathic pain in his feet bilaterally remains present. He also continues to complain of an internal experience of dizziness, "like my head is swimming" but without reporting a true vertiginous perception. Patient also complains of fatigue and a sense of losing muscle tone and strength. SUBSTANCE ABUSE HISTORY: Patient is opioid dependent, having used prescribed opiates for extended periods beginning in his 20s and on a constant basis since back surgery 7 years ago through discontinuing Belbuca 21 days ago. Patient has a remote history of overuse of alcohol which he states has been absent for a number of years to the present time. He denies any other drug use or abuse pattern of medication use. LEGAL HISTORY: Patient denies current or past legal issues other than his 2 divorce procedures from his 1st and 2nd wives. PERSONAL HISTORY/FAMILY HISTORY: Patient was born and raised in [place]; both parents were 4th generation [place]. Patient's father at age 68 from lung cancer; Mother remarried 1-1/2 years after Father's , and she in 2006 at the age of 92 with advanced Alzheimer Dementia. Patient has 2 older sisters. He describes one sister is stable, functional, and living in [facility], working with her as an adjunct faculty mathematics department. Patient states he is estranged from a 2nd sister whom he describes as living a troubled life. Following the dissolution of sister's 1st marriage, she emerged in coming out as vela. She also has reportedly significant cardiac disease, lives an isolated and "lonely" life. Patient does describe his childhood and adolescent life within the family as good. He was particularly close to mother through the early years and continuing to be closely involved with her through her lifetime. 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 Patient was to his first from his age of 24 to 47. This marriage procreated his 3 children, 2 daughters and a son. He states he was happy in this partnership, but his unexpectedly wanted to pursue divorce. He found out after the divorce that she had been involved in an affair for a period of time prior to the separation and divorce. He states she and he attempted reconciliation sometime later but gave up this attempt. Patient was a second time for an unclear number of years. He for the second time at age 59. He states it was an extremely stressful divorce as his presented as angry and vindictive. He states she said "I'll kill you if you divorce me." Also stressful during the time of this divorce was financial stress associated with having to sell his home and his share of the business during the time the overall economic downturn in 2007. This was also a stressful time for the patient as his mother's dementia was progressing prior to her in 2006 or 2007. Patient did have a steady relationship with a girlfriend for 3 years which ended in the context of "mutual consent." He essentially for the third time 4-5 years ago. He and his 3rd , defined as a common-law , lived stably and lovingly for most of the last 5 years. Patient was stressed within the last several years by the intrusion of his 's children from her first marriage. He says he has had conflictual relationships with them. Most recently, his suffered the loss of a daughter in her 40s precipitously last year. The couple have been stressed by her grief reaction to this loss along with the patient's likely depression, complaints of increased pain through his recent back surgery, and ongoing problems with pain breakthrough and depression. As mentioned in the present illness, patient's has declared within the past 48 hours that she wants to activate a separation. This stressor has amplified patient's depressive syndrome. Patient has maintained close relationships with his 3 biologic children, particularly his 2 daughters who have been present and visiting during his medical admission and endorsed the admission to the psychiatric service. ADMISSION MENTAL STATUS EXAM: The patient presents as an adult male, looking his stated age. His gait and station appear normal. He engages the initial contact cooperatively and is conversant. Mood state is moderately dysphoric, range of affect constricted, and expression of affect flattened. There is no evidence for psychosis, and patient's thought process appears to be linear and goal focused. He appears to be of average intelligence, referencing his vocabulary and language syntax. Memory functioning across all domains is fully intact. Patient evidences impulse control, fair insight, good judgment. Patient is openly disclosing and providing many of the details in the above narrative. He does state the reality of his ongoing back pain and particularly emphasizes his complaints of profound dizziness. While making these complaints, he appears to walk stably and have no problems coordinating his body movements. He also states his interest in remaining off opiates and a willingness to explore other options. He is aware he is on a Neurontin regimen which was increased to 300 mg t.i.d. prior to the transfer from [facility]. Patient's ADL functions appear to be intact and appropriate for his age. He states a positive interest in participating in the current psychiatric workup and treatment interventions. He denies suicidality but does acknowledge having had passive suicidality as well as a sense of risk of self harm if not in a secure hospital setting at time of his transfer and admission. Session focuses on staging his mental status, over viewing his symptom and treatment history psychiatrically, and over viewing his lifeline history. FORMULATION: The patient presents as a 66-year-old white male with a chronic history associated with chronic pain syndrome, iatrogenic-induced opiate dependence, affective instability associated with recurrent depressive symptoms, recurrent anxiety symptoms, and a question of primary mood instability. More recently, following back surgery in March of 2016, patient' s pain complaints and depressive/anxiety complaints have been present to a significant degree. A complicating feature has been the patient's reported complaints of a toxic response to the prescribed Belbuca, an oral-absorbed Suboxone agent. Following the Belbuca discontinuation 21 days ago, the symptoms of possible toxicity, including dizziness and weakness, have intensified to a point of prompting medical admission on 09/02. The toxic symptoms would be atypical for an opiate withdrawal syndrome. It also is atypical for any withdrawal syndrome to extend this long after stopping the opioid agent. This raises the question of a psychogenic somatic displacement which may be a feature of patient's longer-term psychiatric history. The patient's depressive acuity intensified with the news that his 3rd has mandated a separation which includes an eviction from his returning to live with her. This notification to the patient has occurred within 24 hours of his admission to Psychiatric Service. Initial treatment plan will focus on expediting the clinical workup which will include collateral contact with his long-standing community psychiatrist. We also will carefully assess patient's sustained complaints of dizziness along with his underlying pain complaints with collateral intake from his pain management physician in the community. ADMISSION DIAGNOSTIC IMPRESSION: [place] I: 1. Depressive Disorder, not otherwise specified, currently in state of exacerbation, intensified within the past 24 hours by his learning of his 3rd 's wish for marital separation which presumes evicting him from her home in which they have been living for most of the past 5 years. 2. Rule out Primary Mood Disorder including question of Bipolar Variant. 3. Rule out Primary Anxiety Disorder. 4. Rule out Somatic Symptom Disorder with a predominance of back pain complaints and more current complaints of dizziness. 5. Opioid Dependence: Patient has been currently opioid free for 21 days after stopping his most recent opioid prescription for Belbuca. 6. Rule out atypical and extended Belbuca withdrawal syndrome. [place] II: Deferred. [place] III: No active medical problems. S/P: Chronic pain syndrome secondary to structural back deformities, post 2 back surgeries, 2009 and March 2016. Gout. Migraine headache syndrome. Atrial arrhythmia, post single-vessel ablation procedure. [place] IV: Stressors associated with chronic vulnerability to affective instability, axis I syndromal diagnoses as referenced above, opiate dependence, financial stress, empty life syndrome, recent imposed separation/eviction by patient's common-law . [place] V: Current GAF 35. INITIAL TREATMENT PLAN 1. Nursing: Complete admission assessment; reinforce compliance with cares and medications; monitor patient for suicidality and safety; orient patient to the unit milieu and group program and encourage participation. 2. Psychiatry: Provide daily E/M contacts with focus on completing diagnostic workup, assessing and managing psychoactive medication needs, providing reintegrative psychotherapeutic contacts, allying patient with followup treatment to linked discharge resources. 3. Clinical Coordinator: Daily contacts to expand the intake database including contact with relevant collaterals; identify definitive post discharge treatment resources with links in place at discharge. 4. Admission medical consultation: Pending. 5. Medications: Will currently provide p.r.n. medications only; will expedite case review with patient's community psychiatrist in order to formulate interventions with standing psychiatric medications as well as facilitate discharge planning. 6. Prioritize inpatient goals: Stabilize mental status versus sufficient for discharge; complete diagnostic workup to inform definitive discharge planning; ally patient with followup discharge plan with linked resources ready at discharge. /[id number]/MODL and [id number], 09/07/16, wesley THAO
--- NOTE | 2016-09-07 09:58 | SOAPPROG ---
GILDARDO Progress Note Assessment/Plan: Assessment: Plan: 09/07/16 DAY ' UPDATE/EXAM: Objective: Vital Signs Temp Pulse Resp BP Pulse Ox 36.3 C 78 16 116/77 97 09/07/16 06:00 09/07/16 06:00 09/07/16 06:00 09/07/16 06:00 09/07/16 06:00 ICD10 Worksheet Patient Problems: Problems Problem Status Onset Dizziness Acute Generalized weakness Acute Lumbar degenerative disc disease Acute
[2016-09-07] MEDS: clonazePAM 0.5 MG TAB PO SCH ×2 (15:55→22:02)
--- NOTE | 2016-09-07 15:55 | SOAPPROG ---
GILDARDO Progress Note Assessment/Plan: Assessment: Plan: 09/07/16 DAY ' UPDATE/EXAM: 09/07/16 15:54 Orders 09/05/16 21:00 Diazepam [Valium] 4 mg PO HS 09/05/16 21:46 LORazepam [Ativan] 0.5 - 1 mg PO Q4HRS PRN 09/05/16 21:51 Zolpidem Tartrate [Ambien] 10 mg PO HS PRN 09/05/16 22:00 Gabapentin [Neurontin] 300 mg PO TID 09/07/16 16:00 clonazePAM [KlonoPIN] 0.5 mg PO TID 09/08/16 09:00 buPROPion SR [Wellbutrin Sr] 100 mg PO DAILY Objective: Vital Signs Temp Pulse Resp BP Pulse Ox 36.3 C 78 16 116/77 97 09/07/16 06:00 09/07/16 06:00 09/07/16 06:00 09/07/16 06:00 09/07/16 06:00 ICD10 Worksheet Patient Problems: Problems Problem Status Onset Dizziness Acute Generalized weakness Acute Lumbar degenerative disc disease Acute
[2016-09-07] MEDS: buPROPion SR 100 MG TAB PO SCH (16:01)
[2016-09-07] MEDS: DIAZEPAM 2 MG TAB PO SCH (22:01)
[2016-09-07] MEDS: ZOLPIDEM TARTRATE 5 MG TAB PO PRN (22:01)
[2016-09-07] MEDS: GABAPENTIN 400 MG CAP PO SCH (22:02)
[2016-09-07] MEDS: POLYETHYLENE GLYCOL 3350 17 GM PKT PO SCH (22:07)
[2016-09-08] MEDS: LORazepam 0.5 MG TAB PO PRN ×3 (02:18→13:34)
[2016-09-08] MEDS: ATORVASTATIN CALCIUM 40 MG TAB PO SCH (08:36)
[2016-09-08] MEDS: ALLOPURINOL 300 MG TAB PO SCH (08:37)
[2016-09-08] MEDS: GABAPENTIN 400 MG CAP PO SCH ×3 (08:37→21:57)
[2016-09-08] MEDS: buPROPion SR 100 MG TAB PO SCH (08:37)
[2016-09-08] MEDS: clonazePAM 0.5 MG TAB PO SCH ×3 (08:37→21:57)
[2016-09-08] MEDS ORDERED: buPROPion SR 100 MG TAB PO SCH (09:00)
[2016-09-08] MEDS: DIAZEPAM 2 MG TAB PO SCH (21:57)
[2016-09-08] MEDS: POLYETHYLENE GLYCOL 3350 17 GM PKT PO SCH (21:58)
[2016-09-08] MEDS: ZOLPIDEM TARTRATE 5 MG TAB PO PRN (22:03)
[2016-09-09] MEDS: LORazepam 0.5 MG TAB PO PRN (02:16)
--- NOTE | 2016-09-09 06:35 | SOAPPROG ---
SOAP Progress Note Assessment/Plan: Assessment: Plan: 09/07/16 DAY ' UPDATE/EXAM: Nursing reports pt experienced broken sleep, verbally irritable and entitled with observable underlying dysphoria/ on direct exam pt indeed presents with dysphoric mood and constricted range/blunted expression of affect ; did cooperate with additional life-line disclosure, denied SI, able to review medications with conveyed plan to continue compliance; did complain of persistent dizziness which he attributes to withdrawal from the Belbuca ASSESSMENT/PLAN: residual depressive acuity;? atypical withdrawal syndrome/ see referenced meds; management plan discussed with Nursing in rounds. , Objective: Vital Signs Temp Pulse Resp BP Pulse Ox 36.3 C 86 16 109/70 94 09/09/16 02:20 09/09/16 02:20 09/09/16 02:20 09/09/16 02:20 09/09/16 02:20 ICD10 Worksheet Patient Problems: Problems Problem Status Onset Dizziness Acute Generalized weakness Acute Lumbar degenerative disc disease Acute
--- NOTE | 2016-09-09 06:46 | SOAPPROG ---
SOAP Progress Note Assessment/Plan: Assessment: Plan: 09/07/16 13:00 DAY ' UPDATE/EXAM: Nursing reports pt experienced broken sleep, verbally irritable and entitled with observable underlying dysphoria/ on direct exam pt indeed presents with dysphoric mood and constricted range/blunted expression of affect ; did cooperate with additional life-line disclosure, denied SI, able to review medications with conveyed plan to continue compliance; did complain of persistent dizziness which he attributes to withdrawal from the Belbuca ASSESSMENT/PLAN: residual depressive acuity;? atypical withdrawal syndrome/ see referenced meds; management plan discussed with Nursing in rounds. , 09/07/16 14:00 INTAKE/ Dr Guerra - spoke with pt's community psychiatrist telephonically; he re; ports pt's history c/w recurrent episodes of depression and probable primary anxiety syndrome but he has not observed primary mood instability; he also emphasized pt has had short trials on various antidepressants without success as he's been sensitive to side effects with SSRI's, was unclear about Bupropion but does state pt has been responsible to supportive psychotherapy and ancillary interventions including exercise programs. 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 He has not seen pt in recent months because of pt's inability to leave home for appointments. Medications Neurontin increased from 300 to 400 mg tid for pain relief and ? anxio- lytic effect; Klonopin and Bupropion trials begun. Generic Name Dose Route Start Last Admin Trade Name Freq PRN Reason Stop Dose Admin Gabapentin 400 mg 09/07/16 22:00 09/08/16 21:57 Neurontin PO 03/06/17 21:59 400 mg TID GERI Zolpidem Tartrate 10 mg 09/05/16 21:51 09/08/16 22:03 Ambien PO 03/04/17 21:50 10 mg HS PRN Sleep/Insomnia Bupropion HCl 100 mg 09/07/16 16:00 09/08/16 08:37 Wellbutrin Sr PO 03/06/17 15:59 100 mg DAILY GERI Clonazepam 0.5 mg 09/07/16 16:00 09/08/16 21:57 Klonopin PO 03/06/17 15:59 0.5 mg TID GERI Diazepam 4 mg 09/05/16 21:00 09/08/16 21:57 Valium PO 03/04/17 20:59 4 mg HS GERI Objective: Vital Signs Temp Pulse Resp BP Pulse Ox 36.3 C 86 16 109/70 94 09/09/16 02:20 09/09/16 02:20 09/09/16 02:20 09/09/16 02:20 09/09/16 02:20 ICD10 Worksheet Patient Problems: Problems Problem Status Onset Dizziness Acute Generalized weakness Acute Lumbar degenerative disc disease Acute
--- NOTE | 2016-09-09 07:03 | SOAPPROG ---
SOAP Progress Note Assessment/Plan: Assessment: Plan: 09/07/16 13:00 DAY ' UPDATE/EXAM: Nursing reports pt experienced broken sleep, verbally irritable and entitled with observable underlying dysphoria/ on direct exam pt indeed presents with dysphoric mood and constricted range/blunted expression of affect ; did cooperate with additional life-line disclosure, denied SI, able to review medications with conveyed plan to continue compliance; did complain of persistent dizziness which he attributes to withdrawal from the [facility] ASSESSMENT/PLAN: residual depressive acuity;? atypical withdrawal syndrome/ see referenced meds; management plan discussed with Nursing in rounds. , 09/07/16 14:00 INTAKE/ Dr Guerra - spoke with pt's community psychiatrist telephonically; he re; ports pt's history c/w recurrent episodes of depression and probable primary anxiety syndrome but he has not observed primary mood instability; he also emphasized pt has had short trials on various antidepressants without success as he's been sensitive to side effects with SSRI's, was unclear about Bupropion but does state pt has been responsible to supportive psychotherapy and ancillary interventions including exercise programs. 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 He has not seen pt in recent months because of pt's inability to leave home for appointments. Medications Neurontin increased from 300 to 400 mg tid for pain relief and ? anxio- lytic effect; Klonopin and Bupropion trials begun. Generic Name Dose Route Start Last Admin Trade Name Freq PRN Reason Stop Dose Admin Gabapentin 400 mg 09/07/16 22:00 09/08/16 21:57 Neurontin PO 03/06/17 21:59 400 mg TID GERI Zolpidem Tartrate 10 mg 09/05/16 21:51 09/08/16 22:03 Ambien PO 03/04/17 21:50 10 mg HS PRN Sleep/Insomnia Bupropion HCl 100 mg 09/07/16 16:00 09/08/16 08:37 Wellbutrin Sr PO 03/06/17 15:59 100 mg DAILY GERI Clonazepam 0.5 mg 09/07/16 16:00 09/08/16 21:57 Klonopin PO 03/06/17 15:59 0.5 mg TID EGRI Diazepam 4 mg 09/05/16 21:00 09/08/16 21:57 Valium PO 03/04/17 20:59 4 mg HS GERI 09/08/16 12:30 and 1500 DAY 07/03' UPDATE/EXAM: Nursing reports pt slept better, c/w med and cares, remains entitled but less irritable/ on direct exam is calmer, cooperative conversant; reports more alert and less fatigued and feels calmer since starting Klonopin; reports dizziness is lessening; interested in me conversing with CLW INTAKE/ DOC: met directly with daughter; she describes life-long pattern of pt presenting for extended period as "upbeat", energized, spending money excessively, sleeping 3 - 4 hours per night; these states would last for months with occasional switches to more neutral or mildly depressed states; she's never observed manias and reports father as relatively stable b/w [place] 2 traits including O/C qualities, overbearing socially, tendency to "wear people out" with his energy and/or demands for attention. she states that the last 10 years that have produced more explicit depressions and anxiety sx and a/t his mother's emergence and progression of ATD, stress a/w losing second as marriage had been "good", financial losses, inability to develop rewarding life since residential. She report marriage to [facility] again has fulfilled pt's need to have a woman support him and confirms that pt and MOC were enmeshed with all his wives as substitute maternal objects. 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 She has seen his pain complaints escalate during periods of emotional stress ASSESSMENT/PLAN: residual depressive acuity and c/o of dizziness/ no change in meds or management as d/w Nursing in Rounds Objective: Vital Signs Temp Pulse Resp BP Pulse Ox 36.3 C 86 16 109/70 94 09/09/16 02:20 09/09/16 02:20 09/09/16 02:20 09/09/16 02:20 09/09/16 02:20 ICD10 Worksheet Patient Problems: Problems Problem Status Onset Dizziness Acute Generalized weakness Acute Lumbar degenerative disc disease Acute
[2016-09-09] MEDS: ALLOPURINOL 300 MG TAB PO SCH (07:43)
[2016-09-09] MEDS: GABAPENTIN 400 MG CAP PO SCH ×3 (07:43→21:33)
[2016-09-09] MEDS: clonazePAM 0.5 MG TAB PO SCH ×3 (07:43→21:32)
[2016-09-09] MEDS: buPROPion SR 100 MG TAB PO SCH (07:43)
[2016-09-09] MEDS: ATORVASTATIN CALCIUM 40 MG TAB PO SCH (07:43)
[2016-09-09] MEDS ORDERED: buPROPion SR 100 MG TAB PO ONE (13:45)
--- NOTE | 2016-09-09 14:34 | SOAPPROG ---
SOAP Progress Note Assessment/Plan: Assessment: Plan: 09/07/16 13:00 DAY ' UPDATE/EXAM: Nursing reports pt experienced broken sleep, verbally irritable and entitled with observable underlying dysphoria/ on direct exam pt indeed presents with dysphoric mood and constricted range/blunted expression of affect ; did cooperate with additional life-line disclosure, denied SI, able to review medications with conveyed plan to continue compliance; did complain of persistent dizziness which he attributes to withdrawal from the [facility] ASSESSMENT/PLAN: residual depressive acuity;? atypical withdrawal syndrome/ see referenced meds; management plan discussed with Nursing in rounds. , 09/07/16 14:00 INTAKE/ Dr Guerra - spoke with pt's community psychiatrist telephonically; he re; ports pt's history c/w recurrent episodes of depression and probable primary anxiety syndrome but he has not observed primary mood instability; he also emphasized pt has had short trials on various antidepressants without success as he's been sensitive to side effects with SSRI's, was unclear about Bupropion but does state pt has been responsible to supportive psychotherapy and ancillary interventions including exercise programs. 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 He has not seen pt in recent months because of pt's inability to leave home for appointments. Medications Neurontin increased from 300 to 400 mg tid for pain relief and ? anxio- lytic effect; Klonopin and Bupropion trials begun. Generic Name Dose Route Start Last Admin Trade Name Freq PRN Reason Stop Dose Admin Gabapentin 400 mg 09/07/16 22:00 09/08/16 21:57 Neurontin PO 03/06/17 21:59 400 mg TID GERI Zolpidem Tartrate 10 mg 09/05/16 21:51 09/08/16 22:03 Ambien PO 03/04/17 21:50 10 mg HS PRN Sleep/Insomnia Bupropion HCl 100 mg 09/07/16 16:00 09/08/16 08:37 Wellbutrin Sr PO 03/06/17 15:59 100 mg DAILY GERI Clonazepam 0.5 mg 09/07/16 16:00 09/08/16 21:57 Klonopin PO 03/06/17 15:59 0.5 mg TID GERI Diazepam 4 mg 09/05/16 21:00 09/08/16 21:57 Valium PO 03/04/17 20:59 4 mg HS GERI 09/08/16 12:30 and 1500 DAY 07/03' UPDATE/EXAM: Nursing reports pt slept better, c/w med and cares, remains entitled but less irritable/ on direct exam is calmer, cooperative conversant; reports more alert and less fatigued and feels calmer since starting Klonopin; reports dizziness is lessening; interested in me conversing with CLW INTAKE/ DOC: met directly with daughter; she describes life-long pattern of pt presenting for extended period as "upbeat", energized, spending money excessively, sleeping 3 - 4 hours per night; these states would last for months with occasional switches to more neutral or mildly depressed states; she's never observed manias and reports father as relatively stable b/w [place] 2 traits including O/C qualities, overbearing socially, tendency to "wear people out" with his energy and/or demands for attention. she states that the last 10 years that have produced more explicit depressions and anxiety sx and a/t his mother's emergence and progression of ATD, stress a/w losing second as marriage had been "good", financial losses, inability to develop rewarding life since group home. She report marriage to [facility] again has fulfilled pt's need to have a woman support him and confirms that pt and MOC were enmeshed with all his wives as substitute maternal objects. 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 She has seen his pain complaints escalate during periods of emotional stress ASSESSMENT/PLAN: residual depressive acuity and c/o of dizziness/ no change in meds or management as d/w Nursing in Rounds 09/09/16 13:00 DAY ' UPDDATE/EXAM: Nursing reports observable progress last 24 hours - pt report less dizziness, better sleep, less daytime fatigue, less anxiety/ on direct exam pt endorses descriptive progress, enthusiastic about upcoming PT consult (? later today); appropriate tears evoked as pt disclosing more precisely his sense of "abandonment" by CLW. He is pleased she in interested in coming in directly to meet with me and with me as a couple as stated to me in a telephonic contact earlier today. Medications and interactive strategies to facilitate recovery discussed. ASSESSMENT/PLAN: progress reported as referenced/ increase Bupropion SR to 200 mg qam; PT consult pending; couples" meeting post weekend; CP discussed with Nursing in Rounds Objective: Vital Signs Temp Pulse Resp BP Pulse Ox 36.3 C 86 16 109/70 94 09/09/16 02:20 09/09/16 02:20 09/09/16 02:20 09/09/16 02:20 09/09/16 02:20 ICD10 Worksheet Patient Problems: Problems Problem Status Onset Dizziness Acute Generalized weakness Acute Lumbar degenerative disc disease Acute
[2016-09-09] MEDS: POLYETHYLENE GLYCOL 3350 17 GM PKT PO SCH (21:33)
[2016-09-09] MEDS: ZOLPIDEM TARTRATE 5 MG TAB PO PRN (21:33)
[2016-09-09] MEDS: DIAZEPAM 2 MG TAB PO SCH (21:33)
[2016-09-10] MEDS: LORazepam 0.5 MG TAB PO PRN ×3 (03:32→21:20)
[2016-09-10] MEDS: clonazePAM 0.5 MG TAB PO SCH ×3 (08:03→20:31)
[2016-09-10] MEDS: ALLOPURINOL 300 MG TAB PO SCH (08:03)
[2016-09-10] MEDS: GABAPENTIN 400 MG CAP PO SCH ×3 (08:03→22:02)
[2016-09-10] MEDS: ATORVASTATIN CALCIUM 40 MG TAB PO SCH (08:03)
[2016-09-10] MEDS: buPROPion SR 100 MG TAB PO SCH (08:08)
[2016-09-10] MEDS ORDERED: buPROPion SR 150 MG TAB PO SCH (09:00)
--- NOTE | 2016-09-10 09:00 | SOAPPROG ---
SOAP Progress Note Assessment/Plan: Assessment: Plan: 09/07/16 13:00 DAY ' UPDATE/EXAM: Nursing reports pt experienced broken sleep, verbally irritable and entitled with observable underlying dysphoria/ on direct exam pt indeed presents with dysphoric mood and constricted range/blunted expression of affect ; did cooperate with additional life-line disclosure, denied SI, able to review medications with conveyed plan to continue compliance; did complain of persistent dizziness which he attributes to withdrawal from the [facility] ASSESSMENT/PLAN: residual depressive acuity;? atypical withdrawal syndrome/ see referenced meds; management plan discussed with Nursing in rounds. , 09/07/16 14:00 INTAKE/ Dr Guerra - spoke with pt's community psychiatrist telephonically; he re; ports pt's history c/w recurrent episodes of depression and probable primary anxiety syndrome but he has not observed primary mood instability; he also emphasized pt has had short trials on various antidepressants without success as he's been sensitive to side effects with SSRI's, was unclear about Bupropion but does state pt has been responsible to supportive psychotherapy and ancillary interventions including exercise programs. 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 He has not seen pt in recent months because of pt's inability to leave home for appointments. Medications Neurontin increased from 300 to 400 mg tid for pain relief and ? anxio- lytic effect; Klonopin and Bupropion trials begun. Generic Name Dose Route Start Last Admin Trade Name Freq PRN Reason Stop Dose Admin Gabapentin 400 mg 09/07/16 22:00 09/08/16 21:57 Neurontin PO 03/06/17 21:59 400 mg TID GERI Zolpidem Tartrate 10 mg 09/05/16 21:51 09/08/16 22:03 Ambien PO 03/04/17 21:50 10 mg HS PRN Sleep/Insomnia Bupropion HCl 100 mg 09/07/16 16:00 09/08/16 08:37 Wellbutrin Sr PO 03/06/17 15:59 100 mg DAILY GERI Clonazepam 0.5 mg 09/07/16 16:00 09/08/16 21:57 Klonopin PO 03/06/17 15:59 0.5 mg TID GERI Diazepam 4 mg 09/05/16 21:00 09/08/16 21:57 Valium PO 03/04/17 20:59 4 mg HS GERI 09/08/16 12:30 and 1500 DAY 07/03' UPDATE/EXAM: Nursing reports pt slept better, c/w med and cares, remains entitled but less irritable/ on direct exam is calmer, cooperative conversant; reports more alert and less fatigued and feels calmer since starting Klonopin; reports dizziness is lessening; interested in me conversing with CLW INTAKE/ DOC: met directly with daughter; she describes life-long pattern of pt presenting for extended period as "upbeat", energized, spending money excessively, sleeping 3 - 4 hours per night; these states would last for months with occasional switches to more neutral or mildly depressed states; she's never observed manias and reports father as relatively stable b/w [place] 2 traits including O/C qualities, potential to be overbearing socially, tendency to "wear people out" with his energy and/or demands for attention. she states that the last 10 years that have produced more explicit depressions and anxiety sx and a/t his mother's emergence and progression of ATD, stress a/w losing second as marriage had been "good", financial losses, inability to develop rewarding life since intermediate. She reports marriage to [facility] again has fulfilled pt's need to have a woman support him and confirms that pt and MOC were enmeshed with all his wives as substitute maternal objects. 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 She has seen his pain complaints escalate during periods of emotional stress. ASSESSMENT/PLAN: residual depressive acuity and c/o of dizziness; [place] 2 c/w cyclothymic trait / no change in meds or management as d/w Nursing in Rounds 09/09/16 13:00 DAY ' UPDDATE/EXAM: Nursing reports observable progress last 24 hours - pt report less dizziness, better sleep, less daytime fatigue, less anxiety/ on direct exam pt endorses descriptive progress, enthusiastic about upcoming PT consult (? later today); appropriate tears evoked as pt disclosing more precisely his sense of "abandonment" by CLW. He is pleased she in interested in coming in directly to meet with me individually and as a couple as stated to me in a telephonic contact earlier today. Medications and interactive strategies to facilitate recovery discussed. ASSESSMENT/PLAN: progress reported as referenced/ increase Bupropion SR to 200 mg qam; PT consult pending; couples' meeting post weekend; CP discussed with Nursing in Rounds 09/10/16 DAY ' UPDATE/EXAM: Objective: Vital Signs Temp Pulse Resp BP Pulse Ox 36.4 C 85 12 107/77 95 09/10/16 05:24 09/10/16 05:24 09/10/16 05:24 09/10/16 05:24 09/10/16 05:24 ICD10 Worksheet Patient Problems: Problems Problem Status Onset Dizziness Acute Generalized weakness Acute Lumbar degenerative disc disease Acute
[2016-09-10] MEDS ORDERED: MAGNESIUM HYDROXIDE 30 ML UDCUP PO ONE (15:15)
[2016-09-10] MEDS ORDERED: DOXEPIN HCL 50 MG CAP PO SCH (21:00)
[2016-09-10] MEDS: POLYETHYLENE GLYCOL 3350 17 GM PKT PO SCH (22:02)
[2016-09-10] MEDS: DIAZEPAM 2 MG TAB PO SCH (22:02)
[2016-09-10] MEDS: ZOLPIDEM TARTRATE 5 MG TAB PO PRN (22:31)
[2016-09-11] MEDS: LORazepam 0.5 MG TAB PO PRN ×3 (01:29→15:01)
[2016-09-11] MEDS: GABAPENTIN 400 MG CAP PO SCH ×3 (07:38→22:31)
[2016-09-11] MEDS: buPROPion SR 100 MG TAB PO SCH (07:38)
[2016-09-11] MEDS: clonazePAM 0.5 MG TAB PO SCH (07:39)
[2016-09-11] MEDS: ATORVASTATIN CALCIUM 40 MG TAB PO SCH (07:39)
[2016-09-11] MEDS: ALLOPURINOL 300 MG TAB PO SCH (07:39)
[2016-09-11] MEDS ORDERED: DOXEPIN HCL 50 MG CAP PO SCH ×2 (21:00→22:30)
[2016-09-11] MEDS ORDERED: DIAZEPAM 2 MG TAB PO SCH (22:30)
[2016-09-11] MEDS ORDERED: clonazePAM 1 MG TAB PO SCH (22:30)
[2016-09-11] MEDS: POLYETHYLENE GLYCOL 3350 17 GM PKT PO SCH (22:31)
[2016-09-11] MEDS: DIAZEPAM 2 MG TAB PO SCH (22:31)
[2016-09-12] MEDS: ZOLPIDEM TARTRATE 5 MG TAB PO PRN ×2 (00:24→22:32)
[2016-09-12] MEDS: LORazepam 0.5 MG TAB PO PRN (00:45)
[2016-09-12] MEDS: GABAPENTIN 400 MG CAP PO SCH ×3 (07:59→22:33)
[2016-09-12] MEDS: ATORVASTATIN CALCIUM 40 MG TAB PO SCH (07:59)
[2016-09-12] MEDS: ALLOPURINOL 300 MG TAB PO SCH (07:59)
[2016-09-12] MEDS: buPROPion SR 100 MG TAB PO SCH (07:59)
[2016-09-12] MEDS: clonazePAM 0.5 MG TAB PO SCH ×2 (07:59→16:56)
--- NOTE | 2016-09-12 08:53 | SOAPPROG ---
SOAP Progress Note Assessment/Plan: Assessment: Plan: 09/07/16 13:00 DAY ' UPDATE/EXAM: Nursing reports pt experienced broken sleep, verbally irritable and entitled with observable underlying dysphoria/ on direct exam pt indeed presents with dysphoric mood and constricted range/blunted expression of affect ; did cooperate with additional life-line disclosure, denied SI, able to review medications with conveyed plan to continue compliance; did complain of persistent dizziness which he attributes to withdrawal from the [facility] ASSESSMENT/PLAN: residual depressive acuity;? atypical withdrawal syndrome/ see referenced meds; management plan discussed with Nursing in rounds. , 09/07/16 14:00 INTAKE/ Dr Guerra - spoke with pt's community psychiatrist telephonically; he re; ports pt's history c/w recurrent episodes of depression and probable primary anxiety syndrome but he has not observed primary mood instability; he also emphasized pt has had short trials on various antidepressants without success as he's been sensitive to side effects with SSRI's, was unclear about Bupropion but does state pt has been responsible to supportive psychotherapy and ancillary interventions including exercise programs. 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 He has not seen pt in recent months because of pt's inability to leave home for appointments. Medications Neurontin increased from 300 to 400 mg tid for pain relief and ? anxio- lytic effect; Klonopin and Bupropion trials begun. Generic Name Dose Route Start Last Admin Trade Name Freq PRN Reason Stop Dose Admin Gabapentin 400 mg 09/07/16 22:00 09/08/16 21:57 Neurontin PO 03/06/17 21:59 400 mg TID GERI Zolpidem Tartrate 10 mg 09/05/16 21:51 09/08/16 22:03 Ambien PO 03/04/17 21:50 10 mg HS PRN Sleep/Insomnia Bupropion HCl 100 mg 09/07/16 16:00 09/08/16 08:37 Wellbutrin Sr PO 03/06/17 15:59 100 mg DAILY GERI Clonazepam 0.5 mg 09/07/16 16:00 09/08/16 21:57 Klonopin PO 03/06/17 15:59 0.5 mg TID GERI Diazepam 4 mg 09/05/16 21:00 09/08/16 21:57 Valium PO 03/04/17 20:59 4 mg HS GERI 09/08/16 12:30 and 1500 DAY 07/03' UPDATE/EXAM: Nursing reports pt slept better, c/w med and cares, remains entitled but less irritable/ on direct exam is calmer, cooperative conversant; reports more alert and less fatigued and feels calmer since starting Klonopin; reports dizziness is lessening; interested in me conversing with CLW INTAKE/ DOC: met directly with daughter; she describes life-long pattern of pt presenting for extended period as "upbeat", energized, spending money excessively, sleeping 3 - 4 hours per night; these states would last for months with occasional switches to more neutral or mildly depressed states; she's never observed manias and reports father as relatively stable b/w [place] 2 traits including O/C qualities, potential to be overbearing socially, tendency to "wear people out" with his energy and/or demands for attention. she states that the last 10 years that have produced more explicit depressions and anxiety sx and a/t his mother's emergence and progression of ATD, stress a/w losing second as marriage had been "good", financial losses, inability to develop rewarding life since custodial. She reports marriage to [facility] again has fulfilled pt's need to have a woman support him and confirms that pt and MOC were enmeshed with all his wives as substitute maternal objects. 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 She has seen his pain complaints escalate during periods of emotional stress. ASSESSMENT/PLAN: residual depressive acuity and c/o of dizziness; [place] 2 c/w cyclothymic trait / no change in meds or management as d/w Nursing in Rounds 09/09/16 13:00 DAY ' UPDDATE/EXAM: Nursing reports observable progress last 24 hours - pt report less dizziness, better sleep, less daytime fatigue, less anxiety/ on direct exam pt endorses descriptive progress, enthusiastic about upcoming PT consult (? later today); appropriate tears evoked as pt disclosing more precisely his sense of "abandonment" by CLW. He is pleased she in interested in coming in directly to meet with me individually and as a couple as stated to me in a telephonic contact earlier today. Medications and interactive strategies to facilitate recovery discussed. ASSESSMENT/PLAN: progress reported as referenced/ increase Bupropion SR to 200 mg qam; PT consult pending; couples' meeting post weekend; CP discussed with Nursing in Rounds 09/10/16 14:00 DAY ' UPDATE/EXAM: Nursing reports pt slightly more regressed past 24 hrs with increased neediness @ c/o dizziness, bowel functions - lesening as day proceeds ; sleep still compromised at 4-5 hours wiht oneinterruption to urinate; on direct exam pt more focussed and disclosing with appropriate affect about the distress at marital separation imposed by partness just before this admission while pt on medical unit; spoke in some detail about the pattern of stability in the relationship unti last fall when his back pain began to worsen, complicatied by the tragic and unexpected medical of 's daughter; he remains concerned that they will not reconcile as she will prefer to immerse herself in her family and take on care of her grandaughter despite son-in-laws caring for his daughter after daughter's ; he is positive about the couple' s meeting for tomorrow in pm after his has a chance to see me individually which she has requested. Med reviewed and titrating of hs med discussed. Mood with esidual dysphoria and affect constricted. and blunted ASSESSMENT/PLAN: resiudal syndromal depression, somatization but pt able to focus affectively and with useful content on marital distress/ will increase Doxepin to 100 mg hsand increase Klonopinto 1 mg hs; management plan d/w Nursing in Rounds Objective: Vital Signs Temp Pulse Resp BP Pulse Ox 36 C 86 16 121/75 H 93 09/12/16 02:30 09/12/16 02:30 09/12/16 02:30 09/12/16 02:30 09/12/16 02:30 ICD10 Worksheet Patient Problems: Problems Problem Status Onset Dizziness Acute Generalized weakness Acute Lumbar degenerative disc disease Acute
[2016-09-12] MEDS: MAGNESIUM HYDROXIDE 30 ML UDCUP PO PRN (22:16)
[2016-09-12] MEDS: POLYETHYLENE GLYCOL 3350 17 GM PKT PO SCH (22:32)
[2016-09-12] MEDS: DIAZEPAM 2 MG TAB PO SCH (22:39)
[2016-09-13] MEDS: LORazepam 0.5 MG TAB PO PRN ×3 (03:09→21:01)
[2016-09-13] MEDS: ACETAMINOPHEN 325 MG TAB PO PRN (04:37)
[2016-09-13] MEDS: clonazePAM 0.5 MG TAB PO SCH ×3 (08:22→14:22)
[2016-09-13] MEDS: ALLOPURINOL 300 MG TAB PO SCH (08:22)
[2016-09-13] MEDS: ATORVASTATIN CALCIUM 40 MG TAB PO SCH (08:22)
[2016-09-13] MEDS: GABAPENTIN 400 MG CAP PO SCH ×3 (08:22→21:55)
[2016-09-13] MEDS: buPROPion SR 100 MG TAB PO SCH (08:54)
--- NOTE | 2016-09-13 11:50 | SOAPPROG ---
SOAP Progress Note Assessment/Plan: Assessment: Plan: 09/07/16 13:00 DAY ' UPDATE/EXAM: Nursing reports pt experienced broken sleep, verbally irritable and entitled with observable underlying dysphoria/ on direct exam pt indeed presents with dysphoric mood and constricted range/blunted expression of affect ; did cooperate with additional life-line disclosure, denied SI, able to review medications with conveyed plan to continue compliance; did complain of persistent dizziness which he attributes to withdrawal from the [place] ASSESSMENT/PLAN: residual depressive acuity;? atypical withdrawal syndrome/ see referenced meds; management plan discussed with Nursing in rounds. , 09/07/16 14:00 INTAKE/ Dr Guerra - spoke with pt's community psychiatrist telephonically; he re; ports pt's history c/w recurrent episodes of depression and probable primary anxiety syndrome but he has not observed primary mood instability; he also emphasized pt has had short trials on various antidepressants without success as he's been sensitive to side effects with SSRI's, was unclear about Bupropion but does state pt has been responsible to supportive psychotherapy and ancillary interventions including exercise programs. 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 He has not seen pt in recent months because of pt's inability to leave home for appointments. Medications Neurontin increased from 300 to 400 mg tid for pain relief and ? anxio- lytic effect; Klonopin and Bupropion trials begun. Generic Name Dose Route Start Last Admin Trade Name Freq PRN Reason Stop Dose Admin Gabapentin 400 mg 09/07/16 22:00 09/08/16 21:57 Neurontin PO 03/06/17 21:59 400 mg TID GERI Zolpidem Tartrate 10 mg 09/05/16 21:51 09/08/16 22:03 Ambien PO 03/04/17 21:50 10 mg HS PRN Sleep/Insomnia Bupropion HCl 100 mg 09/07/16 16:00 09/08/16 08:37 Wellbutrin Sr PO 03/06/17 15:59 100 mg DAILY GERI Clonazepam 0.5 mg 09/07/16 16:00 09/08/16 21:57 Klonopin PO 03/06/17 15:59 0.5 mg TID GERI Diazepam 4 mg 09/05/16 21:00 09/08/16 21:57 Valium PO 03/04/17 20:59 4 mg HS GERI 09/08/16 12:30 and 1500 DAY 07/03' UPDATE/EXAM: Nursing reports pt slept better, c/w med and cares, remains entitled but less irritable/ on direct exam is calmer, cooperative conversant; reports more alert and less fatigued and feels calmer since starting Klonopin; reports dizziness is lessening; interested in me conversing with CLW INTAKE/ DOC: met directly with daughter; she describes life-long pattern of pt presenting for extended period as "upbeat", energized, spending money excessively, sleeping 3 - 4 hours per night; these states would last for months with occasional switches to more neutral or mildly depressed states; she's never observed manias and reports father as relatively stable b/w [place] 2 traits including O/C qualities, potential to be overbearing socially, tendency to "wear people out" with his energy and/or demands for attention. she states that the last 10 years that have produced more explicit depressions and anxiety sx and a/t his mother's emergence and progression of ATD, stress a/w losing second as marriage had been "good", financial losses, inability to develop rewarding life since fpc. She reports marriage to [facility] again has fulfilled pt's need to have a woman support him and confirms that pt and MOC were enmeshed with all his wives as substitute maternal objects. 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 She has seen his pain complaints escalate during periods of emotional stress. ASSESSMENT/PLAN: residual depressive acuity and c/o of dizziness; [place] 2 c/w cyclothymic trait / no change in meds or management as d/w Nursing in Rounds 09/09/16 13:00 DAY ' UPDDATE/EXAM: Nursing reports observable progress last 24 hours - pt report less dizziness, better sleep, less daytime fatigue, less anxiety/ on direct exam pt endorses descriptive progress, enthusiastic about upcoming PT consult (? later today); appropriate tears evoked as pt disclosing more precisely his sense of "abandonment" by CLW. He is pleased she in interested in coming in directly to meet with me individually and as a couple as stated to me in a telephonic contact earlier today. Medications and interactive strategies to facilitate recovery discussed. ASSESSMENT/PLAN: progress reported as referenced/ increase Bupropion SR to 200 mg qam; PT consult pending; couples' meeting post weekend; CP discussed with Nursing in Rounds 09/10/16 14:00 DAY UPDATE/EXAM: Nursing reports pt slightly more regressed past 24 hrs with increased neediness @ c/o dizziness, bowel functions - lessening as day proceeds ; sleep still compromised at 4-5 hours withone interruption to urinate; on direct exam pt more focussed and disclosing with appropriate affect about the distress at marital separation imposed by partner just before this admission while pt on medical unit; spoke in some detail about the pattern of stability in the relationship until last fall when his back pain began to worsen, complicated by the tragic and unexpected medical of 's daughter; he remains concerned that they will not reconcile as she will prefer to immerse herself in her family and take on care of her granddaughter despite son-in-laws caring for his daughter after daughter's ; he is positive about the couple' s meeting for tomorrow in pm after his has a chance to see me individually which she has requested. Meds reviewed and titrating of hs med discussed. Mood with residual dysphoria and affect constricted. and blunted ASSESSMENT/PLAN: residual syndromal depression, somatization but pt able to focus affectively and with useful content on marital distress/ will increase Doxepin to 100 mg hs and increase Klonopin to 1 mg hs; management plan d/w Nursing in Rounds . 09/13/16 DAY UPDATE/EXAM: Objective: Vital Signs Temp Pulse Resp BP Pulse Ox 36.6 C 100 12 111/78 94 09/13/16 06:00 09/13/16 11:10 09/13/16 11:10 09/13/16 11:10 09/13/16 06:00 ICD10 Worksheet Patient Problems: Problems Problem Status Onset Dizziness Acute Generalized weakness Acute Lumbar degenerative disc disease Acute
--- NOTE | 2016-09-13 14:00 | SOAPPROG ---
SOAP Progress Note Assessment/Plan: Assessment: Plan: 09/07/16 13:00 DAY ' UPDATE/EXAM: Nursing reports pt experienced broken sleep, verbally irritable and entitled with observable underlying dysphoria/ on direct exam pt indeed presents with dysphoric mood and constricted range/blunted expression of affect ; did cooperate with additional life-line disclosure, denied SI, able to review medications with conveyed plan to continue compliance; did complain of persistent dizziness which he attributes to withdrawal from the [place] ASSESSMENT/PLAN: residual depressive acuity;? atypical withdrawal syndrome/ see referenced meds; management plan discussed with Nursing in rounds. , 09/07/16 14:00 INTAKE/ Dr Guerra - spoke with pt's community psychiatrist telephonically; he re; ports pt's history c/w recurrent episodes of depression and probable primary anxiety syndrome but he has not observed primary mood instability; he also emphasized pt has had short trials on various antidepressants without success as he's been sensitive to side effects with SSRI's, was unclear about Bupropion but does state pt has been responsible to supportive psychotherapy and ancillary interventions including exercise programs. 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 He has not seen pt in recent months because of pt's inability to leave home for appointments. Medications Neurontin increased from 300 to 400 mg tid for pain relief and ? anxio- lytic effect; Klonopin and Bupropion trials begun. Generic Name Dose Route Start Last Admin Trade Name Freq PRN Reason Stop Dose Admin Gabapentin 400 mg 09/07/16 22:00 09/08/16 21:57 Neurontin PO 03/06/17 21:59 400 mg TID GERI Zolpidem Tartrate 10 mg 09/05/16 21:51 09/08/16 22:03 Ambien PO 03/04/17 21:50 10 mg HS PRN Sleep/Insomnia Bupropion HCl 100 mg 09/07/16 16:00 09/08/16 08:37 Wellbutrin Sr PO 03/06/17 15:59 100 mg DAILY GERI Clonazepam 0.5 mg 09/07/16 16:00 09/08/16 21:57 Klonopin PO 03/06/17 15:59 0.5 mg TID GERI Diazepam 4 mg 09/05/16 21:00 09/08/16 21:57 Valium PO 03/04/17 20:59 4 mg HS GERI 09/08/16 12:30 and 1500 DAY 07/03' UPDATE/EXAM: Nursing reports pt slept better, c/w med and cares, remains entitled but less irritable/ on direct exam is calmer, cooperative conversant; reports more alert and less fatigued and feels calmer since starting Klonopin; reports dizziness is lessening; interested in me conversing with CLW INTAKE/ DOC: met directly with daughter; she describes life-long pattern of pt presenting for extended period as "upbeat", energized, spending money excessively, sleeping 3 - 4 hours per night; these states would last for months with occasional switches to more neutral or mildly depressed states; she's never observed manias and reports father as relatively stable b/w [place] 2 traits including O/C qualities, potential to be overbearing socially, tendency to "wear people out" with his energy and/or demands for attention. she states that the last 10 years that have produced more explicit depressions and anxiety sx and a/t his mother's emergence and progression of ATD, stress a/w losing second as marriage had been "good", financial losses, inability to develop rewarding life since prison. She reports marriage to [facility] again has fulfilled pt's need to have a woman support him and confirms that pt and MOC were enmeshed with all his wives as substitute maternal objects. 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 She has seen his pain complaints escalate during periods of emotional stress. ASSESSMENT/PLAN: residual depressive acuity and c/o of dizziness; [place] 2 c/w cyclothymic trait / no change in meds or management as d/w Nursing in Rounds 09/09/16 13:00 DAY ' UPDATE/EXAM: Nursing reports observable progress last 24 hours - pt report less dizziness, better sleep, less daytime fatigue, less anxiety/ on direct exam pt endorses descriptive progress, enthusiastic about upcoming PT consult (?later today); appropriate tears evoked as pt disclosing more precisely his sense of "abandonment" by CLW. He is pleased she in interested in coming in directly to meet with me individually and as a couple as stated to me in a telephonic contact earlier today. Medications and interactive strategies to facilitate recovery discussed. ASSESSMENT/PLAN: progress reported as referenced/ increase Bupropion SR to 200 mg qam; PT consult pending; couples' meeting post weekend; CP discussed with Nursing in Rounds 09/10/16 14:00 DAY UPDATE/EXAM: Nursing reports pt slightly more regressed past 24 hrs with increased neediness @ c/o dizziness, bowel functions - lessening as day proceeds ; sleep still compromised at 4-5 hours with one interruption to urinate; on direct exam pt more focussed and disclosing with appropriate affect about the distress at marital separation imposed by partner just before this admission while pt on medical unit; spoke in some detail about the pattern of stability in the relationship until last fall when his back pain began to worsen, complicated by the tragic and unexpected medical of 's daughter; he remains concerned that they will not reconcile as she will prefer to immerse herself in her family and take on care of her granddaughter despite son-in-laws caring for his daughter after daughter's ; he is positive about the couple' s meeting for tomorrow in pm after his has a chance to see me individually which she has requested. Meds reviewed and titrating of hs med discussed. Mood with residual dysphoria and affect constricted. and blunted ASSESSMENT/PLAN: residual syndromal depression, somatization but pt able to focus affectively and with useful content on marital distress/ will increase Doxepin to 100 mg hs and increase Klonopin to 1 mg hs; management plan d/w Nursing in Rounds . 09/11/16 DAY UPDATE/EXAM: Nursing reports sleep remained compromised and that pt fell while moving around overnight, oversedated while awake from the modified sleep medications; did not strike head and only injury sustained per examination by Nursing was superficial abrasion on L elbow; pt did fall back asleep after being attended by Nursing staff/ on direct exam today pt relatively calm and conversant; focus on agenda for couples' meeting 09/12, syndromal update; meds reviewed and pt aware I've discontinued Doxepin and hs Klonopin to facilitate pt washing out medications and allowing sleep cycle to "reset and restore". ASSESSMENT/PLAN; residual syndromal depression but lessening; disrupted sleep pattern continues/ meds changes as referenced; CP r/w Nursing in Rounds. Objective: Vital Signs Temp Pulse Resp BP Pulse Ox 36.6 C 100 12 111/78 94 09/13/16 06:00 09/13/16 11:10 09/13/16 11:10 09/13/16 11:10 09/13/16 06:00 ICD10 Worksheet Patient Problems: Problems Problem Status Onset Dizziness Acute Generalized weakness Acute Lumbar degenerative disc disease Acute
--- NOTE | 2016-09-13 14:12 | SOAPPROG ---
SOAP Progress Note Assessment/Plan: Assessment: Plan: 09/07/16 13:00 DAY ' UPDATE/EXAM: Nursing reports pt experienced broken sleep, verbally irritable and entitled with observable underlying dysphoria/ on direct exam pt indeed presents with dysphoric mood and constricted range/blunted expression of affect ; did cooperate with additional life-line disclosure, denied SI, able to review medications with conveyed plan to continue compliance; did complain of persistent dizziness which he attributes to withdrawal from the [place] ASSESSMENT/PLAN: residual depressive acuity;? atypical withdrawal syndrome/ see referenced meds; management plan discussed with Nursing in rounds. , 09/07/16 14:00 INTAKE/ Dr Guerra - spoke with pt's community psychiatrist telephonically; he re; ports pt's history c/w recurrent episodes of depression and probable primary anxiety syndrome but he has not observed primary mood instability; he also emphasized pt has had short trials on various antidepressants without success as he's been sensitive to side effects with SSRI's, was unclear about Bupropion but does state pt has been responsible to supportive psychotherapy and ancillary interventions including exercise programs. 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 He has not seen pt in recent months because of pt's inability to leave home for appointments. Medications Neurontin increased from 300 to 400 mg tid for pain relief and ? anxio- lytic effect; Klonopin and Bupropion trials begun. Generic Name Dose Route Start Last Admin Trade Name Freq PRN Reason Stop Dose Admin Gabapentin 400 mg 09/07/16 22:00 09/08/16 21:57 Neurontin PO 03/06/17 21:59 400 mg TID GERI Zolpidem Tartrate 10 mg 09/05/16 21:51 09/08/16 22:03 Ambien PO 03/04/17 21:50 10 mg HS PRN Sleep/Insomnia Bupropion HCl 100 mg 09/07/16 16:00 09/08/16 08:37 Wellbutrin Sr PO 03/06/17 15:59 100 mg DAILY GERI Clonazepam 0.5 mg 09/07/16 16:00 09/08/16 21:57 Klonopin PO 03/06/17 15:59 0.5 mg TID GERI Diazepam 4 mg 09/05/16 21:00 09/08/16 21:57 Valium PO 03/04/17 20:59 4 mg HS GERI 09/08/16 12:30 and 1500 DAY 07/03' UPDATE/EXAM: Nursing reports pt slept better, c/w med and cares, remains entitled but less irritable/ on direct exam is calmer, cooperative conversant; reports more alert and less fatigued and feels calmer since starting Klonopin; reports dizziness is lessening; interested in me conversing with CLW INTAKE/ DOC: met directly with daughter; she describes life-long pattern of pt presenting for extended period as "upbeat", energized, spending money excessively, sleeping 3 - 4 hours per night; these states would last for months with occasional switches to more neutral or mildly depressed states; she's never observed manias and reports father as relatively stable b/w [place] 2 traits including O/C qualities, potential to be overbearing socially, tendency to "wear people out" with his energy and/or demands for attention. she states that the last 10 years that have produced more explicit depressions and anxiety sx and a/t his mother's emergence and progression of ATD, stress a/w losing second as marriage had been "good", financial losses, inability to develop rewarding life since [facility]. She reports marriage to [facility] again has fulfilled pt's need to have a woman support him and confirms that pt and MOC were enmeshed with all his wives as substitute maternal objects. 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 She has seen his pain complaints escalate during periods of emotional stress. ASSESSMENT/PLAN: residual depressive acuity and c/o of dizziness; [place] 2 c/w cyclothymic trait / no change in meds or management as d/w Nursing in Rounds 09/09/16 13:00 DAY ' UPDATE/EXAM: Nursing reports observable progress last 24 hours - pt report less dizziness, better sleep, less daytime fatigue, less anxiety/ on direct exam pt endorses descriptive progress, enthusiastic about upcoming PT consult (?later today); appropriate tears evoked as pt disclosing more precisely his sense of "abandonment" by CLW. He is pleased she in interested in coming in directly to meet with me individually and as a couple as stated to me in a telephonic contact earlier today. Medications and interactive strategies to facilitate recovery discussed. ASSESSMENT/PLAN: progress reported as referenced/ increase Bupropion SR to 200 mg qam; PT consult pending; couples' meeting post weekend; CP discussed with Nursing in Rounds 09/10/16 14:00 DAY UPDATE/EXAM: Nursing reports pt slightly more regressed past 24 hrs with increased neediness @ c/o dizziness, bowel functions - lessening as day proceeds ; sleep still compromised at 4-5 hours with one interruption to urinate; on direct exam pt more focussed and disclosing with appropriate affect about the distress at marital separation imposed by partner just before this admission while pt on medical unit; spoke in some detail about the pattern of stability in the relationship until last fall when his back pain began to worsen, complicated by the tragic and unexpected medical of 's daughter; he remains concerned that they will not reconcile as she will prefer to immerse herself in her family and take on care of her granddaughter despite son-in-laws caring for his daughter after daughter's ; he is positive about the couple' s meeting for tomorrow in pm after his has a chance to see me individually which she has requested. Meds reviewed and titrating of hs med discussed. Mood with residual dysphoria and affect constricted. and blunted ASSESSMENT/PLAN: residual syndromal depression, somatization but pt able to focus affectively and with useful content on marital distress/ will increase Doxepin to 100 mg hs and increase Klonopin to 1 mg hs; management plan d/w Nursing in Rounds . 09/11/16 DAY UPDATE/EXAM: Nursing reports sleep remained compromised and that pt fell while moving around overnight, oversedated while awake from the modified sleep medications; did not strike head and only injury sustained per examination by Nursing was superficial abrasion on L elbow; pt did fall back asleep after being attended by Nursing staff/ on direct exam today pt relatively calm and conversant; focus on agenda for couples' meeting 09/12, syndromal update; meds reviewed and pt aware I've discontinued Doxepin and hs Klonopin to facilitate pt washing out medications and allowing sleep cycle to "reset and restore". ASSESSMENT/PLAN; residual syndromal depression but lessening; disrupted sleep pattern continues/ meds changes as referenced; CP r/w Nursing in Rounds. 09/12/16 13:00 DAY 8/ 30' UPDATE/EXAM: Nursing states pt more alert with no signs of oversedation or toxicity following discontinuation of meds at hs as referenced above; pt's sleep still disrupted but total sleep time increasing; on direct exam pt productively further disclosing the partnership history over it's productive time which was most of the first 3 1/2 years while taking responsibility for his negatively impacting his partner with his pain/depressive sx beginning in the fall compounded by the precipitous of her daughter in October 2015; he is hopepull that partner will agree to sustaining relationship through any separation; + anticipating the couples' meeting in the following hour. Mood improving as observed in the session with less somatization. ASSESSMENT/PLAN: improving descriptively and increasing focus on the state of the marital partnership/ no change in current meds or management; couples' meeting upcoming today. Objective: Vital Signs Temp Pulse Resp BP Pulse Ox 36.6 C 100 12 111/78 94 09/13/16 06:00 09/13/16 11:10 09/13/16 11:10 09/13/16 11:10 09/13/16 06:00 ICD10 Worksheet Patient Problems: Problems Problem Status Onset Dizziness Acute Generalized weakness Acute Lumbar degenerative disc disease Acute
[2016-09-13] MEDS: POLYETHYLENE GLYCOL 3350 17 GM PKT PO SCH (21:49)
[2016-09-13] MEDS: DIAZEPAM 2 MG TAB PO SCH (21:55)
[2016-09-13] MEDS: ZOLPIDEM TARTRATE 5 MG TAB PO PRN (21:56)
[2016-09-14] MEDS: LORazepam 0.5 MG TAB PO PRN ×2 (03:23→07:28)
[2016-09-14] MEDS: ACETAMINOPHEN 325 MG TAB PO PRN (05:42)
[2016-09-14] MEDS: ATORVASTATIN CALCIUM 40 MG TAB PO SCH (07:28)
[2016-09-14] MEDS: ALLOPURINOL 300 MG TAB PO SCH (07:28)
[2016-09-14] MEDS: buPROPion SR 100 MG TAB PO SCH (07:28)
[2016-09-14] MEDS: GABAPENTIN 400 MG CAP PO SCH ×3 (07:28→22:35)
[2016-09-14] MEDS: clonazePAM 0.5 MG TAB PO SCH ×2 (09:37→16:45)
--- NOTE | 2016-09-14 16:59 | SOAPPROG ---
SOAP Progress Note Assessment/Plan: Assessment: Plan: 09/07/16 13:00 DAY ' UPDATE/EXAM: Nursing reports pt experienced broken sleep, verbally irritable and entitled with observable underlying dysphoria/ on direct exam pt indeed presents with dysphoric mood and constricted range/blunted expression of affect ; did cooperate with additional life-line disclosure, denied SI, able to review medications with conveyed plan to continue compliance; did complain of persistent dizziness which he attributes to withdrawal from the [place] ASSESSMENT/PLAN: residual depressive acuity;? atypical withdrawal syndrome/ see referenced meds; management plan discussed with Nursing in rounds. , 09/07/16 14:00 INTAKE/ Dr Guerra - spoke with pt's community psychiatrist telephonically; he re; ports pt's history c/w recurrent episodes of depression and probable primary anxiety syndrome but he has not observed primary mood instability; he also emphasized pt has had short trials on various antidepressants without success as he's been sensitive to side effects with SSRI's, was unclear about Bupropion but does state pt has been responsible to supportive psychotherapy and ancillary interventions including exercise programs. 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 He has not seen pt in recent months because of pt's inability to leave home for appointments. Medications Neurontin increased from 300 to 400 mg tid for pain relief and ? anxio- lytic effect; Klonopin and Bupropion trials begun. Generic Name Dose Route Start Last Admin Trade Name Freq PRN Reason Stop Dose Admin Gabapentin 400 mg 09/07/16 22:00 09/08/16 21:57 Neurontin PO 03/06/17 21:59 400 mg TID GERI Zolpidem Tartrate 10 mg 09/05/16 21:51 09/08/16 22:03 Ambien PO 03/04/17 21:50 10 mg HS PRN Sleep/Insomnia Bupropion HCl 100 mg 09/07/16 16:00 09/08/16 08:37 Wellbutrin Sr PO 03/06/17 15:59 100 mg DAILY GERI Clonazepam 0.5 mg 09/07/16 16:00 09/08/16 21:57 Klonopin PO 03/06/17 15:59 0.5 mg TID GERI Diazepam 4 mg 09/05/16 21:00 09/08/16 21:57 Valium PO 03/04/17 20:59 4 mg HS GERI 09/08/16 12:30 and 1500 DAY 07/03' UPDATE/EXAM: Nursing reports pt slept better, c/w med and cares, remains entitled but less irritable/ on direct exam is calmer, cooperative conversant; reports more alert and less fatigued and feels calmer since starting Klonopin; reports dizziness is lessening; interested in me conversing with CLW INTAKE/ DOC: met directly with daughter; she describes life-long pattern of pt presenting for extended period as "upbeat", energized, spending money excessively, sleeping 3 - 4 hours per night; these states would last for months with occasional switches to more neutral or mildly depressed states; she's never observed manias and reports father as relatively stable b/w [place] 2 traits including O/C qualities, potential to be overbearing socially, tendency to "wear people out" with his energy and/or demands for attention. she states that the last 10 years that have produced more explicit depressions and anxiety sx and a/t his mother's emergence and progression of ATD, stress a/w losing second as marriage had been "good", financial losses, inability to develop rewarding life since nursing home. She reports marriage to [facility] again has fulfilled pt's need to have a woman support him and confirms that pt and MOC were enmeshed with all his wives as substitute maternal objects. 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 She has seen his pain complaints escalate during periods of emotional stress. ASSESSMENT/PLAN: residual depressive acuity and c/o of dizziness; [place] 2 c/w cyclothymic trait / no change in meds or management as d/w Nursing in Rounds 09/09/16 13:00 DAY ' UPDATE/EXAM: Nursing reports observable progress last 24 hours - pt report less dizziness, better sleep, less daytime fatigue, less anxiety/ on direct exam pt endorses descriptive progress, enthusiastic about upcoming PT consult (?later today); appropriate tears evoked as pt disclosing more precisely his sense of "abandonment" by CLW. He is pleased she in interested in coming in directly to meet with me individually and as a couple as stated to me in a telephonic contact earlier today. Medications and interactive strategies to facilitate recovery discussed. ASSESSMENT/PLAN: progress reported as referenced/ increase Bupropion SR to 200 mg qam; PT consult pending; couples' meeting post weekend; CP discussed with Nursing in Rounds 09/10/16 14:00 DAY UPDATE/EXAM: Nursing reports pt slightly more regressed past 24 hrs with increased neediness @ c/o dizziness, bowel functions - lessening as day proceeds ; sleep still compromised at 4-5 hours with one interruption to urinate; on direct exam pt more focussed and disclosing with appropriate affect about the distress at marital separation imposed by partner just before this admission while pt on medical unit; spoke in some detail about the pattern of stability in the relationship until last fall when his back pain began to worsen, complicated by the tragic and unexpected medical of 's daughter; he remains concerned that they will not reconcile as she will prefer to immerse herself in her family and take on care of her granddaughter despite son-in-laws caring for his daughter after daughter's ; he is positive about the couple' s meeting for tomorrow in pm after his has a chance to see me individually which she has requested. Meds reviewed and titrating of hs med discussed. Mood with residual dysphoria and affect constricted. and blunted ASSESSMENT/PLAN: residual syndromal depression, somatization but pt able to focus affectively and with useful content on marital distress/ will increase Doxepin to 100 mg hs and increase Klonopin to 1 mg hs; management plan d/w Nursing in Rounds . 09/11/16 DAY UPDATE/EXAM: Nursing reports sleep remained compromised and that pt fell while moving around overnight, oversedated while awake from the modified sleep medications; did not strike head and only injury sustained per examination by Nursing was superficial abrasion on L elbow; pt did fall back asleep after being attended by Nursing staff/ on direct exam today pt relatively calm and conversant; focus on agenda for couples' meeting 09/12, syndromal update; meds reviewed and pt aware I've discontinued Doxepin and hs Klonopin to facilitate pt washing out medications and allowing sleep cycle to "reset and restore". ASSESSMENT/PLAN; residual syndromal depression but lessening; disrupted sleep pattern continues/ meds changes as referenced; CP r/w Nursing in Rounds. 09/12/16 13:00 DAY 8/ 30' UPDATE/EXAM: Nursing states pt more alert with no signs of oversedation or toxicity following discontinuation of meds at as referenced above; pt's sleep still disrupted but total sleep time increasing; on direct exam pt productively further disclosing the partnership history over it's productive time which was most of the first 3 1/2 years while taking responsibility for his negatively impacting his partner with his pain/depressive sx beginning in the fall compounded by the precipitous of her daughter in October 2015; he is hopepull that partner will agree to sustaining relationship through any separation; + anticipating the couples' meeting in the following hour. Mood improving as observed in the session with less somatization. ASSESSMENT/PLAN: improving descriptively and increasing focus on the state of the marital partnership/ no change in current meds or management; couples' meeting upcoming today. 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 Ed. ASSESSMENT/PLAN: Improving course as pt moves into DC planning phase/ no change in meds or management plan 09/14/16 - 14:30 DAY ' UPDATE/ EXAM: Nursing reports continued descriptive gains/ on direct exam and in second couples' meeting pt maintain affective eveness and is direct in communication with partner in accepting the separation,and his intention of "emphasizing the positive" in "taking care of my own needs" but still caring for her and hopeful of couples' consultation in the future; partner tearful but reflective and overall both pt and partner more maturely relating to each other ; DC date set for 09/18. ASSESSMENT/PLAN: improving course sustained/ meds will be reassessed for ongoing disturbed sleep issue; definitive DC planning in process Objective: Vital Signs Temp Pulse Resp BP Pulse Ox 36.3 C 83 12 111/80 92 09/14/16 06:11 09/14/16 06:11 09/14/16 06:11 09/14/16 06:11 09/14/16 06:11 ICD10 Worksheet Patient Problems: Problems Problem Status Onset Dizziness Acute Generalized weakness Acute Lumbar degenerative disc disease Acute
[2016-09-14] MEDS ORDERED: PRAZOSIN HCL 1 MG CAP PO SCH (21:00)
[2016-09-14] MEDS: ZOLPIDEM TARTRATE 5 MG TAB PO PRN (22:35)
[2016-09-14] MEDS: DIAZEPAM 2 MG TAB PO SCH (22:35)
[2016-09-14] MEDS: POLYETHYLENE GLYCOL 3350 17 GM PKT PO SCH (22:36)
[2016-09-15] MEDS: ACETAMINOPHEN 325 MG TAB PO PRN ×2 (02:41→15:20)
[2016-09-15] MEDS: LORazepam 0.5 MG TAB PO PRN ×3 (05:44→18:39)
[2016-09-15] MEDS: ALLOPURINOL 300 MG TAB PO SCH (08:28)
[2016-09-15] MEDS: clonazePAM 0.5 MG TAB PO SCH ×2 (08:48→14:09)
[2016-09-15] MEDS: ATORVASTATIN CALCIUM 40 MG TAB PO SCH (08:51)
[2016-09-15] MEDS: buPROPion SR 100 MG TAB PO SCH (08:51)
[2016-09-15] MEDS: GABAPENTIN 400 MG CAP PO SCH ×3 (08:53→21:33)
[2016-09-15] MEDS: ZOLPIDEM TARTRATE 5 MG TAB PO PRN (21:33)
[2016-09-15] MEDS: POLYETHYLENE GLYCOL 3350 17 GM PKT PO SCH ×2 (21:33→21:49)
[2016-09-15] MEDS: PRAZOSIN HCL 1 MG CAP PO SCH (21:33)
[2016-09-15] MEDS: DIAZEPAM 2 MG TAB PO SCH (21:33)
[2016-09-16] MEDS: LORazepam 0.5 MG TAB PO PRN ×4 (01:06→23:57)
[2016-09-16] MEDS: clonazePAM 0.5 MG TAB PO SCH ×2 (08:31→13:42)
[2016-09-16] MEDS: ATORVASTATIN CALCIUM 40 MG TAB PO SCH (08:31)
[2016-09-16] MEDS: GABAPENTIN 400 MG CAP PO SCH ×3 (08:31→21:55)
[2016-09-16] MEDS: buPROPion SR 100 MG TAB PO SCH (08:31)
[2016-09-16] MEDS: ALLOPURINOL 300 MG TAB PO SCH (08:31)
[2016-09-16] MEDS ORDERED: IBUPROFEN 600 MG TAB PO PRN (19:56)
[2016-09-16] MEDS: ZOLPIDEM TARTRATE 5 MG TAB PO PRN (21:55)
[2016-09-16] MEDS: MAGNESIUM HYDROXIDE 30 ML UDCUP PO PRN (21:55)
[2016-09-16] MEDS: PRAZOSIN HCL 1 MG CAP PO SCH (21:56)
[2016-09-16] MEDS: DIAZEPAM 2 MG TAB PO SCH (21:56)
[2016-09-16] MEDS: POLYETHYLENE GLYCOL 3350 17 GM PKT PO SCH (21:56)
[2016-09-17] MEDS: LORazepam 0.5 MG TAB PO PRN ×4 (03:59→16:55)
[2016-09-17] MEDS: ACETAMINOPHEN 325 MG TAB PO PRN (06:02)
--- NOTE | 2016-09-17 08:25 | SOAPPROG ---
SOAP Progress Note Assessment/Plan: Assessment: Plan: 09/07/16 13:00 DAY ' UPDATE/EXAM: Nursing reports pt experienced broken sleep, verbally irritable and entitled with observable underlying dysphoria/ on direct exam pt indeed presents with dysphoric mood and constricted range/blunted expression of affect ; did cooperate with additional life-line disclosure, denied SI, able to review medications with conveyed plan to continue compliance; did complain of persistent dizziness which he attributes to withdrawal from the [facility] ASSESSMENT/PLAN: residual depressive acuity;? atypical withdrawal syndrome/ see referenced meds; management plan discussed with Nursing in rounds. , 09/07/16 14:00 INTAKE/ Dr Guerra - spoke with pt's community psychiatrist telephonically; he re; ports pt's history c/w recurrent episodes of depression and probable primary anxiety syndrome but he has not observed primary mood instability; he also emphasized pt has had short trials on various antidepressants without success as he's been sensitive to side effects with SSRI's, was unclear about Bupropion but does state pt has been responsible to supportive psychotherapy and ancillary interventions including exercise programs. 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 He has not seen pt in recent months because of pt's inability to leave home for appointments. Medications Neurontin increased from 300 to 400 mg tid for pain relief and ? anxio- lytic effect; Klonopin and Bupropion trials begun. Generic Name Dose Route Start Last Admin Trade Name Freq PRN Reason Stop Dose Admin Gabapentin 400 mg 09/07/16 22:00 09/08/16 21:57 Neurontin PO 03/06/17 21:59 400 mg TID GERI Zolpidem Tartrate 10 mg 09/05/16 21:51 09/08/16 22:03 Ambien PO 03/04/17 21:50 10 mg HS PRN Sleep/Insomnia Bupropion HCl 100 mg 09/07/16 16:00 09/08/16 08:37 Wellbutrin Sr PO 03/06/17 15:59 100 mg DAILY GERI Clonazepam 0.5 mg 09/07/16 16:00 09/08/16 21:57 Klonopin PO 03/06/17 15:59 0.5 mg TID GERI Diazepam 4 mg 09/05/16 21:00 09/08/16 21:57 Valium PO 03/04/17 20:59 4 mg HS GERI 09/08/16 12:30 and 1500 DAY 07/03' UPDATE/EXAM: Nursing reports pt slept better, c/w med and cares, remains entitled but less irritable/ on direct exam is calmer, cooperative conversant; reports more alert and less fatigued and feels calmer since starting Klonopin; reports dizziness is lessening; interested in me conversing with CLW INTAKE/ DOC: met directly with daughter; she describes life-long pattern of pt presenting for extended period as "upbeat", energized, spending money excessively, sleeping 3 - 4 hours per night; these states would last for months with occasional switches to more neutral or mildly depressed states; she's never observed manias and reports father as relatively stable b/w [place] 2 traits including O/C qualities, potential to be overbearing socially, tendency to "wear people out" with his energy and/or demands for attention. she states that the last 10 years that have produced more explicit depressions and anxiety sx and a/t his mother's emergence and progression of ATD, stress a/w losing second as marriage had been "good", financial losses, inability to develop rewarding life since senior care. She reports marriage to [facility] again has fulfilled pt's need to have a woman support him and confirms that pt and MOC were enmeshed with all his wives as substitute maternal objects. 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 She has seen his pain complaints escalate during periods of emotional stress. ASSESSMENT/PLAN: residual depressive acuity and c/o of dizziness; [place] 2 c/w cyclothymic trait / no change in meds or management as d/w Nursing in Rounds 09/09/16 13:00 DAY ' UPDATE/EXAM: Nursing reports observable progress last 24 hours - pt report less dizziness, better sleep, less daytime fatigue, less anxiety/ on direct exam pt endorses descriptive progress, enthusiastic about upcoming PT consult (?later today); appropriate tears evoked as pt disclosing more precisely his sense of "abandonment" by CLW. He is pleased she in interested in coming in directly to meet with me individually and as a couple as stated to me in a telephonic contact earlier today. Medications and interactive strategies to facilitate recovery discussed. ASSESSMENT/PLAN: progress reported as referenced/ increase Bupropion SR to 200 mg qam; PT consult pending; couples' meeting post weekend; CP discussed with Nursing in Rounds 09/10/16 14:00 DAY UPDATE/EXAM: Nursing reports pt slightly more regressed past 24 hrs with increased neediness @ c/o dizziness, bowel functions - lessening as day proceeds ; sleep still compromised at 4-5 hours with one interruption to urinate; on direct exam pt more focussed and disclosing with appropriate affect about the distress at marital separation imposed by partner just before this admission while pt on medical unit; spoke in some detail about the pattern of stability in the relationship until last fall when his back pain began to worsen, complicated by the tragic and unexpected medical of 's daughter; he remains concerned that they will not reconcile as she will prefer to immerse herself in her family and take on care of her granddaughter despite son-in-laws caring for his daughter after daughter's ; he is positive about the couple' s meeting for tomorrow in pm after his has a chance to see me individually which she has requested. Meds reviewed and titrating of hs med discussed. Mood with residual dysphoria and affect constricted. and blunted ASSESSMENT/PLAN: residual syndromal depression, somatization but pt able to focus affectively and with useful content on marital distress/ will increase Doxepin to 100 mg hs and increase Klonopin to 1 mg hs; management plan d/w Nursing in Rounds . 09/11/16 DAY UPDATE/EXAM: Nursing reports sleep remained compromised and that pt fell while moving around overnight, oversedated while awake from the modified sleep medications; did not strike head and only injury sustained per examination by Nursing was superficial abrasion on L elbow; pt did fall back asleep after being attended by Nursing staff/ on direct exam today pt relatively calm and conversant; focus on agenda for couples' meeting 09/12, syndromal update; meds reviewed and pt aware I've discontinued Doxepin and hs Klonopin to facilitate pt washing out medications and allowing sleep cycle to "reset and restore". ASSESSMENT/PLAN; residual syndromal depression but lessening; disrupted sleep pattern continues/ meds changes as referenced; CP r/w Nursing in Rounds. 09/12/16 13:00 DAY 8/ 30' UPDATE/EXAM: Nursing states pt more alert with no signs of oversedation or toxicity following discontinuation of meds at as referenced above; pt's sleep still disrupted but total sleep time increasing; on direct exam pt productively further disclosing the partnership history over it's productive time which was most of the first 3 1/2 years while taking responsibility for his negatively impacting his partner with his pain/depressive sx beginning in the fall compounded by the precipitous of her daughter in October 2015; he is hopepull that partner will agree to sustaining relationship through any separation; + anticipating the couples' meeting in the following hour. Mood improving as observed in the session with less somatization. ASSESSMENT/PLAN: improving descriptively and increasing focus on the state of the marital partnership/ no change in current meds or management; couples' meeting upcoming today. 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 ASSESSMENT/PLAN: Improving course as pt moves into DC planning phase/ no change in meds or management plan 09/14/16 - 14:30 DAY ' UPDATE/ EXAM: Nursing reports continued descriptive gains/ on direct exam and in second couples' meeting pt maintains affective eveness and is direct in communication with partner in accepting the separation,and his intention of "emphasizing the positive" in "taking care of my own needs" but still caring for her and hopeful of couples' consultation in the future; partner tearful but reflective and overall both pt and partner more maturely relating to each other ; DC date set for 09/18. ASSESSMENT/PLAN: improving course sustained/ meds will be reassessed for ongoing disturbed sleep issue; definitive DC planning in process 09/16/16 16:00 DAY ' UPDATE/EXAM: Nursing reports pt again experienced interrupted sleep with complaints that appear to be Prazosin side effects/ on direct exam pt appears brighter in mood, alert and well modulated in affective expression; thoughtful focus on syndromal update - pt aware of descriptive progress and gains in first order insight; agrees with decreasing dose of Minipress and updosing Bupropion; DC plans reviewed; useful brief speaker phone meeting with partner during the session; she will come to unit at DC and follow pt home in her car and oversee practice laps in the parking lot prior to leaving for the short drive home. ASSESSMENT/PLAN: syndromal depression practically resolved; positive preparation for DC/ increase Bupropion XL to 300 mg qam, decrease Prazocin to 2 mg hs; continue care plan focus on preparation for DC 09/03 Objective: Vital Signs Temp Pulse Resp BP Pulse Ox 36.9 C 84 12 114/75 94 09/17/16 06:00 09/17/16 06:00 09/17/16 06:00 09/17/16 06:00 09/17/16 06:00 ICD10 Worksheet Patient Problems: Problems Problem Status Onset Dizziness Acute Generalized weakness Acute Lumbar degenerative disc disease Acute
[2016-09-17] MEDS: clonazePAM 0.5 MG TAB PO SCH ×2 (08:49→14:47)
[2016-09-17] MEDS: buPROPion SR 100 MG TAB PO SCH (08:49)
[2016-09-17] MEDS: ATORVASTATIN CALCIUM 40 MG TAB PO SCH (09:00)
[2016-09-17] MEDS: GABAPENTIN 400 MG CAP PO SCH ×3 (09:00→22:02)
[2016-09-17] MEDS: ALLOPURINOL 300 MG TAB PO SCH (09:00)
--- NOTE | 2016-09-17 16:27 | SOAPPROG ---
SOAP Progress Note Assessment/Plan: Assessment: Plan: Patient plans to discharge home tomorrow. He will return to home he shares with his "significant other" of 4 years, however, they intend to separate soon. He wants his SO to pick him up at hospital and she has agreed. Patient has f/u appts with private practice provider in [place]. 09/17/16 16:22 Subjective: Met with patient, reviewed chart, and discussed with staff. Patient says he is still bothered by lack of sleep. Staff report he slept 4 hours last night, which patient says is typical for him. He says his mood is "very good" except that he feels "fuzzy" and "tired" d/t lack fo sleep. He denies feeling depressed and denies any SI/HI. Patient intends to stay off suboxone and opiates. He reports that his significant other of past 4 years wants to separate and he intends to move back to [place] eventually. However, he will be staying with SO at the home they share together immediately after d/c. Objective: Vital Signs Temp Pulse Resp BP Pulse Ox 36.9 C 84 12 114/75 94 09/17/16 06:00 09/17/16 06:00 09/17/16 06:00 09/17/16 06:00 09/17/16 06:00 MSE: Pleasant, cooperative, slightly disheveled. Affect: Congruent Mood: "Very good" TP: linear, goal-directed TC: Denies AH/VH, SI/HI Insight/Judgment: Fair/ Fair - Time Spent With Patient Time Spent With Patient: 25' - Pending Discharge Pending Discharge Within 24 Hours: Yes Pending Discharge Date: 09/18/16 Pending Discharge Time: 12:00 ICD10 Worksheet Patient Problems: Problems Problem Status Onset Major depressive disorder, recurrent episode Acute Opiate dependence Acute Opiate dependence, continuous Acute Dizziness Acute Generalized weakness Acute Lumbar degenerative disc disease Acute - ICD10 Problem Qualifiers (1) Major depressive disorder, recurrent episode Qualifiers: Major depression episode severity: severe Psychotic features: without psychotic features Qualified Code(s): F33.2 - Major depressive disorder, recurrent severe without psychotic features (2) Opiate dependence, continuous (3) Opiate dependence Qualifiers: Substance use status: uncomplicated Complication of substance-induced condition: C Qualified Code(s): F11.20 - Opioid dependence, uncomplicated
[2016-09-17] MEDS: DIAZEPAM 2 MG TAB PO SCH (22:02)
[2016-09-17] MEDS: MAGNESIUM HYDROXIDE 30 ML UDCUP PO PRN (22:02)
[2016-09-17] MEDS: ZOLPIDEM TARTRATE 5 MG TAB PO PRN (22:02)
[2016-09-17] MEDS: PRAZOSIN HCL 1 MG CAP PO SCH (22:05)
[2016-09-17] MEDS: POLYETHYLENE GLYCOL 3350 17 GM PKT PO SCH (22:05)
[2016-09-18] MEDS: LORazepam 0.5 MG TAB PO PRN ×2 (02:10→11:21)
[2016-09-18 06:16] VITALS: BP 135/93; PULSE 87; RESP 16; TEMP 98.2; O2SAT 93
[2016-09-18] MEDS: buPROPion SR 100 MG TAB PO SCH (08:45)
[2016-09-18] MEDS: ATORVASTATIN CALCIUM 40 MG TAB PO SCH (08:45)
[2016-09-18] MEDS: ALLOPURINOL 300 MG TAB PO SCH (08:46)
[2016-09-18] MEDS: clonazePAM 0.5 MG TAB PO SCH (08:46)
[2016-09-18] MEDS: GABAPENTIN 400 MG CAP PO SCH (08:46)
--- NOTE | 2016-09-18 11:12 | SOAPPROG ---
[facility] Progress Note Assessment/Plan: Assessment: 09/17/16 16:22 Plan: Patient plans to discharge home tomorrow. He will return to home he shares with his "significant other" of 4 years, however, they intend to separate soon. He wants his SO to pick him up at hospital and she has agreed. Patient has f/u appts with private practice provider in [place]. 09/18/16 11:07 D/C home today with significant other. Patient has f/u appt with therapist on 09/20/16 and says he will find out on Monday when his next appt is with psychiatrist. Subjective: Patient is lying down in bed when MD meets with him today. He says he didn't sleep "that much" last night, and still feels "tired." He says, though, he was able to get "a little bit of sleep" this AM. Patient does not present with pressured speech, racing thoughts or hyperactivity. He says his mood is "good" and he is looking forward to going home today. He says, "you can't really help me with my biggest problem which is sleep." He adds that he plans to "talk to my regular doctor" about his sleep issues at his next appt. He denies any SI/ HI. Objective: Vital Signs Temp Pulse Resp BP Pulse Ox 36.8 C 87 16 135/93 H 93 09/18/16 06:00 09/18/16 06:00 09/18/16 06:00 09/18/16 06:00 09/18/16 06:00 MSE: Linear, goal-directed, pleasant. Affect: Mood congruent Mood: "Good" TP: linear TC: Denies AH/VH, SI/HI, no s/s of paranoia Insight/Judgment: Fair/Fair - Time Spent With Patient Time Spent With Patient: 20' - Pending Discharge Pending Discharge Within 24 Hours: Yes Pending Discharge Date: 09/18/16 Pending Discharge Time: 12:00 ICD10 Worksheet Patient Problems: Problems Problem Status Onset Major depressive disorder, recurrent episode Acute Opiate dependence Acute Opiate dependence, continuous Acute Dizziness Acute Generalized weakness Acute Lumbar degenerative disc disease Acute - ICD10 Problem Qualifiers (1) Major depressive disorder, recurrent episode Qualifiers: Major depression episode severity: severe Psychotic features: without psychotic features Qualified Code(s): F33.2 - Major depressive disorder, recurrent severe without psychotic features (2) Opiate dependence, continuous (3) Opiate dependence Qualifiers: Substance use status: uncomplicated Complication of substance-induced condition: C Qualified Code(s): F11.20 - Opioid dependence, uncomplicated
--- NOTE | 2016-09-19 15:34 | BDS ---
[f rep st] BEHAVIORAL HEALTH DISCHARGE SUMMARY The patient was admitted to [address] [place] [address] on 09/05, discharged on 09/18. PATIENT IDENTIFICATION: The patient presented as a 66-year-old, , white male, who had been living with his common-law for a period of 4+ years, residing in their jointly owned home. The patient is currently unemployed and retired. The patient was followed in the community as a psychiatric outpatient by his psychiatrist, Dr. Guerra, for the past 6+ years. The patient was admitted to the medical service on 09/02/2016 for complaints of a progressive syndromal picture including severe dizziness, internal sense of spinning (not true vertigo), generalized weakness, to a level of acuity where the patient had difficulty getting out of bed prior to admission. He self- referred to the [facility] Emergency Room. I saw the patient on 2 occasions consultatively 09/04 and 09/05, identified a severe syndromal depression, presence of anxiety symptoms, and a question of primary mood instability. The patient also presented with a significant overlay of somatic displacement of his emotional distress. The patient was medically cleared, deemed gravely disabled, and a self-harm risk out of a hospital setting. The patient was discharged from the medical service and admitted to [address] [place] [address] on an M1 hold. DISCHARGE DIAGNOSES: AXIS I: 1. Major Depressive Disorder: Chronic and recurrent pattern; exacerbation on admission in early phase improvement. 2. Primary Mood Disorder: Question of Bipolar Variant; workup incomplete at discharge. 3. Anxiety Spectrum Disorder: Chronic history, varying syndromal presentation including panic anxiety, stress-reactive anxiety, generalized anxiety; exacerbation on admission improved in early phase at discharge. 4. Somatic Symptom Disorder-chronic history, exacerbation on admission and early phase improvement. 5. Opioid dependence: Chronic history; iatrogenically-induced; patient was opiate free for a period of 21 days prior to this admission and has remained off opiates through his course at discharge. 6. Rule out atypical [place] withdrawal syndrome: The patient is significantly improved with respect to complaints of weakness, dizziness, and internal spinning at time of discharge. AXIS II: Prominent obsessive-compulsive and dependent traits. AXIS III: No active medical problems. ASSESSMENT/PLAN: 1. Chronic pain syndrome secondary to structural back deformity - post 2 back surgeries 2009 and March 2016. 2. Gout. 3. Migraine headache syndrome. 4. Atrial arrhythmia - post single vessel ablation procedure. AXIS IV: Stressors associated with chronic vulnerability of stress-reactive anxiety and depressive symptoms, active opiate dependence with withdrawal from opiates 21 days prior to admission, financial stress, empty life syndrome, recent and post separation by patient's common-law . AXIS V: Discharge GAF 50. DISCHARGE PLAN: 1. The patient discharged to return to the home he shares with his partner. 2. PCP followup within the week post discharge. 3. Pain management followup on 09/20 at 0800. 4. Psychiatric followup with patient's community psychiatrist-Dr. Guerra on . 5. Psychotherapist followup-new referral with patient's scheduled within the 1st week post discharge. 6. Medications at discharge as referenced below. REASON FOR ADMISSION AND HOSPITAL COURSE: On initial contact, the patient presented with normal gait and station, and was cooperative and conversant on initial contact. Mood presented as moderately dysphoric, range of affect constricted, and expression of affect flat. There is no evidence for psychosis and patient's thought processes appear to be linear and goal focused. Patient presented as openly disclosing and providing details of his lifeline history including syndromal and treatment history medically and psychiatrically. He also stated his interest in remaining off opiates and willingness to explore other pain management options. The patient denied suicidal, but does acknowledge having had previous passive suicidality as well as concern for self harm if not in a secure hospital setting. He felt his depression had spiraled significantly when hearing of his common law 's interest in separation on the day of his discharge from Medicine and admission to Psychiatry. The patient cooperated with the applied inpatient treatment plan to initially only a partial degree. He cooperated with daily E/M contacts with myself. He also cooperated with medications trial and nursing care. However, he initially remained withdrawn, resistant to attending the group program, and generally isolative within the social milieu. The patient also was eager for me to have contact with his common-law which I did initially by telephone. She agreed to come in for an individual meeting as well as 2 extended couple's meeting. Medications included continuing patient's long-term HS medications taken prior to admission to Medicine which included Valium 4 mg at HS, Ambien 10 mg at HS. The patient had also begun a Neurontin regimen at 100 mg t.i.d. prior to discharge from medication. This was up-dosed to 400 mg t.i.d. He also cooperated with the addition of bupropion SR dose to 300 mg q.a.m. Klonopin was added 0.5 mg b.i.d. The patient's sleep pattern remained disturbed. History suggests that this has been a chronic problem prior to the emerging syndromal depression prior to admission. I tried the patient on trials of doxepin which was unsuccessful. I also added prazosin dosed to 4 mg at HS. Patient's sleep pattern did improve to 5+ hours a night with the addition of Minipress. The couples meetings proved to be quite productive with both patient and his partner acknowledging the success they had had over their extended 4+ years of living together. They both acknowledged that the relationship had deteriorated with the re-emergence of back pain prior to patient's surgery in March of 2016. The patient's partner also experienced the unexpected of her daughter who was in her early 40s late in the summer of 2015. These events undermined the effective interactive experience in the partnership. The slippage over time had come to overwhelm the patient's partner. Both agreed in the context of the 3 way meetings that a therapeutic separation was in order. Both remain interested in a followup couples consultation at a later time as both were participating in newly started individual psychotherapy. The patient showed marked improvement in the final half of his hospitalization with resolution of his syndromal depression and partial improvement in his sleep pattern. He made concrete arrangements to return to his previous home base in [place], rented an apartment, and allied with a followup treatment plan as referenced below. Both he and his partner were comfortable with his discharging home temporarily for the next 7-10 days to finalize arrangements for his move and be able to interact with each other on a civil and stable basis. I reviewed the patient's case with his community psychiatrist, Dr. Guerra on several occasions prior to discharge. CONDITION ON DISCHARGE: Improved. MENTAL STATUS EXAM: On final contact the patient presented as calm, cooperative , and conversant; the patient understood I was leaving the case 2 days early as my contract was expiring and he would be covered the final 2 days of his course by Dr. Juliano Joseph. He presented with neutral mood, significantly improved range and expression of affect; there is no evidence for suicidal thinking. The patient was able to overview his descriptive progress including 1st order insight on his problematic regression in responding to his medical pain which had impacted the partnership. 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 Medications reviewed; discharge plan was reviewed. The patient was deemed sufficiently stable for safe discharge. RISKS: Patient was deemed low risk for self-harm, harm to others, or inability to manage safely in the community. ASSETS: The patient appeared fully allied with his followup psychiatric and medical treatment plan; he also endorsed the possibility of a couples consultation and treatment emerging later following his more complete rehabilitation and his partner's need to progress in her own psychotherapy. DISCHARGE MEDICATIONS: Allopurinol 300 mg daily. Lipitor 40 mg daily. Valium 4 mg HS. Gabapentin 400 mg t.i.d. Motrin 600 mg q.6h p.r.n. Atrovent 2 sprays each nostril daily. Minipress 4 mg HS. Ambien 10 mg HS. Bupropion 300 mg q.a.m. Klonopin 0.5 mg b.i.d. The patient given sufficient prescription supply to cover the interim between discharge and his initial appointment with Dr. Guerra on 09/27. DISCHARGE LEGAL STATUS: Voluntary. /[id number]/MODL DICTATED BY: Anna Marie MD MTDD
== END 2016-09-18 12:00 | disposition home or self-care (01) | DRG 885 ==
LOC: BBEH 20:25
PROVIDERS: ADMIT Psychiatry & Neurology Psychiatry; ATTEND Psychiatry & Neurology Psychiatry
DX: F33.8 Other recurrent depressive disorders (principal); F41.8 Other specified anxiety disorders; F45.9 Somatoform disorder, unspecified; F42.9 Obsessive-compulsive disorder, unspecified; G89.29 Other chronic pain; F11.20 Opioid dependence, uncomplicated; R42 Dizziness and giddiness; T40.4X5A Adverse effect of other synthetic narcotics, initial encounter; M10.9 Gout, unspecified; Z98.1 Arthrodesis status; G43.909 Migraine, unspecified, not intractable, without status migrainosus; Z63.8 Other specified problems related to primary support group; E78.5 Hyperlipidemia, unspecified
CPT/HCPCS: 97110-GP; 97112-GP; 97116-GP; 97161-GP; 97164-GP; 97530-GP; G8978-GP-CI; G8979-GP-CH; G8979-GP-CI; G8980-GP-CI

== ENCOUNTER 2016-09-22 17:16 | Emergency (ER) | payer OTHER, MEDICARE ==
[2016-09-22 17:22] VITALS: O2SAT 95
--- NOTE | 2016-09-22 17:30 | EDPHY ---
H & P Stated Complaint: urinary retention Time Seen by Provider: 09/22/16 17:30 - Personal History Current Tetanus/Diphtheria Vaccine: Unsure Current Tetanus Diphtheria and Acellular Pertussis (TDAP): Unsure - Medical/Surgical History Hx Asthma: No Hx Chronic Respiratory Disease: No Hx Diabetes: No Hx Cardiac Disease: No Hx Renal Disease: No Hx Cirrhosis: No Hx Alcoholism: No Hx HIV/AIDS: No Hx Splenectomy or Spleen Trauma: No Other PMH: L2L5 fusion, ablation for PVCs, chronic pain, migraines - Social History Smoking Status: Never smoked Constitutional: Initial Vital Signs Temperature (C) 36.5 C 09/22/16 17:21 Heart Rate 96 09/22/16 17:21 Respiratory Rate 20 09/22/16 17:21 Blood Pressure 129/87 H 09/22/16 17:21 O2 Sat (%) 95 09/22/16 17:21 O2 Delivery Mode Room Air Allergies/Adverse Reactions: Penicillins Allergy (Verified 09/02/16 12:04) Rash Home Medications: Medication Instructions Recorded Allopurinol [Allopurinol 300 MG 300 mg PO DAILY 04/05/16 (RX)] Atorvastatin Calcium [Lipitor 40 40 mg PO DAILY 04/05/16 mg (*)] Ipratropium 0.06% Nasal [Atrovent 2 sprays EACHNARE DAILY PRN 04/05/16 0.06% Nasal] Zolpidem Tartrate [Ambien 10 mg] 10 mg PO HS 09/02/16 Allopurinol [Allopurinol 300 MG 300 mg PO DAILY #0 tab 09/18/16 (RX)] Atorvastatin Calcium [Lipitor 40 40 mg PO DAILY #0 tab 09/18/16 mg (*)] Diazepam [Valium 2 MG (*)] 4 mg PO DAILY@2230 #0 tab 09/18/16 Gabapentin [Neurontin 400 MG (*)] 400 mg PO TID #90 cap 09/18/16 Ibuprofen [Motrin (*)] 600 mg PO Q6H PRN #0 tab 09/18/16 Ipratropium 0.06% Nasal [Atrovent 2 sprays EACHNARE DAILY PRN #0 mdi 09/18/16 0.06% Nasal] Prazosin HCl [Minipress 1mg (*)] 4 mg PO HS #0 cap 09/18/16 buPROPion SR [Wellbutrin 100mg SR 200 mg PO DAILY #30 tab 09/18/16 (*)] clonazePAM [Klonopin (*)] 0.5 mg PO BID #14 tab 09/18/16 Departure - Departure Referrals: Paula Francois MD [Primary Care Provider] - As per Instructions
--- NOTE | 2016-09-22 18:10 | EDPHY ---
H & P Stated Complaint: urinary retention Time Seen by Provider: 09/22/16 17:30 HPI/ROS: CHIEF COMPLAINT: Urinary retention HISTORY OF PRESENT ILLNESS: The patient presents to the ED with a 1 day history of urinary retention. The patient recently was started on Topamax for management of chronic back pain. Patient was also admitted to the hospital recently for symptoms surrounding his narcotic dependence. The patient has been out for approximately 4 days. He has been working with a physiatry is to restarted the patient on Topamax and Celebrex. The patient developed urinary tension earlier today. He complains of moderate suprapubic discomfort. He denies dysuria. The patient denies any history of prior diagnosis of BPH. The patient denies abdominal pain, nausea, vomiting or fever. REVIEW OF SYSTEMS: A comprehensive 10 point review of systems is otherwise negative aside from elements mentioned in the history of present illness. Source: Patient Exam Limitations: No limitations - Personal History Current Tetanus/Diphtheria Vaccine: Unsure Current Tetanus Diphtheria and Acellular Pertussis (TDAP): Unsure - Medical/Surgical History Hx Asthma: No Hx Chronic Respiratory Disease: No Hx Diabetes: No Hx Cardiac Disease: No Hx Renal Disease: No Hx Cirrhosis: No Hx Alcoholism: No Hx HIV/AIDS: No Hx Splenectomy or Spleen Trauma: No Other PMH: L2L5 fusion, ablation for PVCs, chronic pain, migraines - Social History Smoking Status: Never smoked - Physical Exam Exam: General Appearance: Alert, no distress Eyes: Pupils equal and round no pallor or injection ENT, Mouth: Mucous membranes moist Respiratory: There are no retractions, lungs are clear to auscultation Cardiovascular: Regular rate and rhythm Gastrointestinal: Suprapubic tenderness and fullness Neurological: A&O, normal motor function, normal sensory exam, normal cranial nerves Skin: Warm and dry, no rashes Musculoskeletal: Neck is supple nontender Extremities: symmetrical, full range of motion Constitutional: Initial Vital Signs Temperature (C) 36.5 C 09/22/16 17:21 Heart Rate 96 09/22/16 17:21 Respiratory Rate 20 09/22/16 17:21 Blood Pressure 129/87 H 09/22/16 17:21 O2 Sat (%) 95 09/22/16 17:21 O2 Delivery Mode Room Air Allergies/Adverse Reactions: Penicillins Allergy (Verified 09/02/16 12:04) Rash Home Medications: Medication Instructions Recorded Allopurinol [Allopurinol 300 MG 300 mg PO DAILY 04/05/16 (RX)] Atorvastatin Calcium [Lipitor 40 40 mg PO DAILY 04/05/16 mg (*)] Ipratropium 0.06% Nasal [Atrovent 2 sprays EACHNARE DAILY PRN 04/05/16 0.06% Nasal] Zolpidem Tartrate [Ambien 10 mg] 10 mg PO HS 09/02/16 Allopurinol [Allopurinol 300 MG 300 mg PO DAILY #0 tab 09/18/16 (RX)] Atorvastatin Calcium [Lipitor 40 40 mg PO DAILY #0 tab 09/18/16 mg (*)] Diazepam [Valium 2 MG (*)] 4 mg PO DAILY@2230 #0 tab 09/18/16 Gabapentin [Neurontin 400 MG (*)] 400 mg PO TID #90 cap 09/18/16 Ibuprofen [Motrin (*)] 600 mg PO Q6H PRN #0 tab 09/18/16 Ipratropium 0.06% Nasal [Atrovent 2 sprays EACHNARE DAILY PRN #0 mdi 09/18/16 0.06% Nasal] Prazosin HCl [Minipress 1mg (*)] 4 mg PO HS #0 cap 09/18/16 buPROPion SR [Wellbutrin 100mg SR 200 mg PO DAILY #30 tab 09/18/16 (*)] clonazePAM [Klonopin (*)] 0.5 mg PO BID #14 tab 09/18/16 Medical Decision Making ED Course/Re-evaluation: The patient had a bladder scan performed which demonstrated greater than 500 mL as of urinary volume. The patient had a Moran catheter placed. The patient's urinalysis demonstrates no evidence of significant infection. I find the patient's abdominal examination to be benign. The patient will be discharged home with a Moran catheter. He is advised to follow up with his primary care provider or urologist for a recheck within the week. Differential Diagnosis: Differential diagnosis considered includes prostatitis, urinary retention, cystitis - Data Points Laboratory Results: 09/22/16 17:55 Urine Color YELLOW Urine Appearance CLEAR Urine pH 6.0 (5.0-7.5) Ur Specific Palmer 1.013 (1.002-1.030) Urine Protein NEGATIVE (NEGATIVE) Urine Ketones NEGATIVE (NEGATIVE) Urine Blood 1+ H (NEGATIVE) Urine Nitrate NEGATIVE (NEGATIVE) Urine Bilirubin NEGATIVE (NEGATIVE) Urine Urobilinogen NEGATIVE EU EU (0.2-1.0) Ur Leukocyte Esterase NEGATIVE (NEGATIVE) Urine RBC 5-10 /hpf H /hpf (0-3) Urine WBC 3-5 /hpf H /hpf (0-3) Ur Epithelial Cells TRACE /lpf /lpf (NONE-1+) Urine Glucose NEGATIVE (NEGATIVE) Departure - Departure Disposition: Home, Routine, Self-Care Clinical Impression: Acute retention of urine, Lumbar degenerative disc disease Condition: Good Instructions: Urinary Retention in Men (ED) Additional Instructions: 1. Please contact Urology to schedule a follow-up appointment within the next week. 2. Please return to the ED for severe pain, fever, vomiting or other concerns. 3. Please leave Moran catheter in until seen by Urology or your primary care provider within the week. Referrals: Paula Francois MD [Primary Care Provider] - As per Instructions Dominick Jacobo MD [Medical Doctor] - As per Instructions
[2016-09-22 18:23] LABS: COLOR YELLOW; LEUKOCYTE ESTERASE,URINE NEGATIVE (NEGATIVE); NITRITE,URINE NEGATIVE (NEGATIVE)
[2016-09-22 19:12] VITALS: BP 130/85; PULSE 85; RESP 18; TEMP 98.2
== END 2016-09-22 19:31 | disposition home or self-care (01) ==
DX: R33.9 Retention of urine, unspecified (principal); M51.36 Other intervertebral disc degeneration, lumbar region

== ENCOUNTER 2016-09-23 18:35 | Emergency (ER) | payer OTHER, MEDICARE ==
[2016-09-23 18:46] VITALS: RESP 18; TEMP 98.2
--- NOTE | 2016-09-23 19:08 | EDPHY ---
H & P Smoking Status: Never smoked Time Seen by Provider: 09/23/16 18:52 HPI/ROS: CHIEF COMPLAINT: Leaking around Moran catheter HISTORY OF PRESENT ILLNESS: 66-year-old male seen in the emergency department yesterday for complaints of urinary retention x1 day. The patient was recently started on Topamax for management of his chronic back pain, has recently been admitted to hospital surrounding his narcotic dependence for his chronic back pain. After being seen emergency department yesterday he had a Moran catheter placed and followed up with Dr. Kei Jacobo Urology today. After referring from his appointment he noticed some kalee Moran leakage of urine and came to the emergency department for evaluation. He has been emptying the urinary bag regularly and notes that he has no complaints of abdominal pain or distention. No fever no chills. No acute back pain. No radiculopathy. REVIEW OF SYSTEMS: A ten point review of systems was performed and is negative with the exception of the items mentioned in the HPI PAST MEDICAL & SURGICAL HISTORY: Chronic back pain. Recent history of opiate dependence. SOCIAL HISTORY:single PHYSICAL EXAM (Prior to examination, patient consented to physical exam, hands were washed and my usual and customary physical exam procedures followed) 1) GENERAL: Well-developed, well-nourished, alert and oriented. Appears to be in no acute distress. 2) HEAD: Normocephalic, atraumatic 3) HEENT: Pupils equal, round, reactive to light bilaterally. Sclera anicteric. 4) NECK: Full range of motion, no meningeal signs. 5) LUNGS: Clear auscultation bilaterally, no wheezes, no rhonchi, no retractions. 6) HEART: Regular rate and rhythm, no murmur, no heave, no gallop. 7) ABDOMEN: No guarding, no rebound, no focal tenderness, negative McBurney's, negative Bullock's, negative Rovsing's, negative peritoneal sign, unable to elicit any abdominal pain on exam 8) MUSCULOSKELETAL: patella and Achilles reflexes are 2+ equal bilaterally strength 5/5 No peripheral edema or discoloration. 9) BACK: No CVA tenderness, no midline vertebral tenderness, no fluctuance, no step-off, no obvious trauma, no visual or palpable abnormality. 10) SKIN: No rash, no petechiae. 11) : Circumcised, Moran catheter in place, patent. DIFFERENTIAL DIAGNOSIS: in no particular include but limited kalee Moran leakage, cauda equina, urinary retention (Priti,Dora Sheryl) Constitutional: Initial Vital Signs Temperature (C) 36.8 C 09/23/16 18:42 Heart Rate 102 H 09/23/16 18:42 Respiratory Rate 18 09/23/16 18:42 Blood Pressure 129/80 H 09/23/16 18:42 O2 Sat (%) 94 09/23/16 18:42 O2 Delivery Mode Room Air Allergies/Adverse Reactions: Penicillins Allergy (Mild, Verified 09/23/16 18:42) Rash Home Medications: Medication Instructions Recorded Allopurinol [Allopurinol 300 MG 300 mg PO DAILY 04/05/16 (RX)] Atorvastatin Calcium [Lipitor 40 40 mg PO DAILY 04/05/16 mg (*)] Ipratropium 0.06% Nasal [Atrovent 2 sprays EACHNARE DAILY PRN 04/05/16 0.06% Nasal] Zolpidem Tartrate [Ambien 10 mg] 10 mg PO HS 09/02/16 Allopurinol [Allopurinol 300 MG 300 mg PO DAILY #0 tab 09/18/16 (RX)] Atorvastatin Calcium [Lipitor 40 40 mg PO DAILY #0 tab 09/18/16 mg (*)] Diazepam [Valium 2 MG (*)] 4 mg PO DAILY@2230 #0 tab 09/18/16 Gabapentin [Neurontin 400 MG (*)] 400 mg PO TID #90 cap 09/18/16 Ibuprofen [Motrin (*)] 600 mg PO Q6H PRN #0 tab 09/18/16 Ipratropium 0.06% Nasal [Atrovent 2 sprays EACHNARE DAILY PRN #0 mdi 09/18/16 0.06% Nasal] Prazosin HCl [Minipress 1mg (*)] 4 mg PO HS #0 cap 09/18/16 buPROPion SR [Wellbutrin 100mg SR 200 mg PO DAILY #30 tab 09/18/16 (*)] clonazePAM [Klonopin (*)] 0.5 mg PO BID #14 tab 09/18/16 MDM/Departure - [facility] ED Course/Re-evaluation: Bladder scan performed in the emergency department resulting in 36 cc at 7:20 p.m. . He is currently not leaking from the kalee Moran region. At this time I do not think that replacement of the Moran catheter is emergently indicated as it is currently patent however he may expect a small amount of leakage for which I have recommended wearing Depends type undergarments. Today is Monday. He has a follow-up appoint with Dr. Kei Jacobo on Monday I recommend he keep. He feels comfortable with this plan.Care and management in consultation with secondary supervising physician Dr Mata . (Dora Marcos) The patient was evaluated and managed by the physician fleet administrative assistant. I have reviewed this chart and I agree with the findings and plan of care as documented , as indicated by my signature. I am the secondary supervising physician. ( Cintia Mata) - Depart Disposition: Home, Routine, Self-Care Clinical Impression: Urinary retention Condition: Good Instructions: [facility] Patient Education, Infection Prevention, Urinary Retention in Men (ED), Moran Catheter Placement and Care (ED) Referrals: Dominick Jacobo MD [Medical Doctor] - 09/27/16 (Keep your appointment with Dr. Kei Jacobo on Monday)
[2016-09-23 20:13] VITALS: BP 138/78; PULSE 88; O2SAT 96
== END 2016-09-23 20:11 | disposition home or self-care (01) ==
DX: R33.9 Retention of urine, unspecified (principal); Y82.8 Other medical devices associated with adverse incidents

== ENCOUNTER → 2016-09-26 | Outpatient (CLI) | payer OTHER, MEDICARE | LOC: FIMAGING 13:39 | PROVIDERS: ATTEND Internal Medicine | DX: K59.00 Constipation, unspecified (principal) ==

== ENCOUNTER → 2016-11-09 | Outpatient (CLI) | payer OTHER, MEDICARE | LOC: FIMAGING 08:26 | PROVIDERS: ATTEND Physician Assistant Surgical | DX: Z09 Encounter for follow-up examination after completed treatment for conditions other than malignant neoplasm (principal); Z98.1 Arthrodesis status ==

== ENCOUNTER → 2017-04-10 | Outpatient (CLI) | payer OTHER, MEDICARE | LOC: FIMAGING 10:16 | PROVIDERS: ATTEND Physician Assistant Surgical | DX: Z09 Encounter for follow-up examination after completed treatment for conditions other than malignant neoplasm (principal); Z98.1 Arthrodesis status ==